=== PATIENT | male | born 1930 | race Hispanic/Latino ===

== ENCOUNTER 2017-09-28 20:22 | Emergency (ER) | payer MEDICARE, BC ==
[2017-09-28 20:22] VITALS: BMI 19.0
[2017-09-28 20:43] VITALS: BP 168/91; PULSE 59; RESP 16; TEMP 98.3; O2SAT 98
--- NOTE | 2017-09-28 22:49 | ED PDOC ---
Arrival/HPI - General Chief Complaint: Trauma Time Seen by Provider: 09/28/17 22:24 Historian: Patient - History of Present Illness Narrative History of Present Illness (Text): 09/28/17 22:49 87 year old male, whose past medical history includes CVA and left upper extremity weakness, DVT, CHF, hypothyroidism, and hypercholestremia, presents to the emergency department complaining of mild headache s/p fall earlier today. Patient was sitting on his easy chair and got up to go to the bathroom when he developed weakness upon standing and fell to the ground. Patient struck his head, but denies any loss of consciousness. Patient currently is complaining of mild headache, but denies any fever, chills, chest pain, shortness of breath, nausea, vomiting, diarrhea, urinary symptoms, back pain, neck pain, dizziness, or any other complaints. PMD: Dr. Tineo Sx: S/P appendectomy, history of umbilical surgery PMHx: history of bilateral healthcare-associated pneumonia Symptom Onset: Sudden Symptom Course: Unchanged Activities at Onset: Light Context: Home Past Medical History - Provider Review Nursing Documentation Reviewed: Yes - Infectious Disease Hx of Infectious Diseases: None - Tetanus Immunization Tetanus Immunization: Unknown - Cardiac Hx Cardiac Disorders: Yes Hx Cardiac Arrhythmia: Yes Hx Circulatory Problems: Yes Hx Congestive Heart Failure: Yes Hx Hypertension: Yes Hx Peripheral Vascular Disease: Yes (DVT) - Pulmonary Hx Respiratory Disorders: Yes Hx Pneumonia: Yes - Neurological Hx Neurological Disorder: Yes HX Cerebrovascular Accident: Yes - HEENT Hx HEENT Disorder: No - Renal Hx Renal Disorder: No - Endocrine/Metabolic Hx Endocrine Disorders: Yes Hx Hypothyroidism: Yes - Hematological/Oncological Hx Blood Disorders: Yes Other/Comment: dvt - Integumentary Hx Dermatological Disorder: No - Musculoskeletal/Rheumatological Hx Musculoskeletal Disorders: Yes Hx Degenerative Joint Disease: Yes Hx Falls: Yes - Gastrointestinal Hx Gastrointestinal Disorders: No - Genitourinary/Gynecological Hx Genitourinary Disorders: Yes Hx Prostate Problems: Yes - Psychiatric Hx Psychophysiologic Disorder: No Hx Substance Use: No - Surgical History Hx Appendectomy: Yes Other/Comment: tonsillectomy - Anesthesia Hx Anesthesia: Yes Hx Anesthesia Reactions: No Hx Malignant Hyperthermia: No Family/Social History - Physician Review Nursing Documentation Reviewed: Yes Family/Social History: No Known Family HX Smoking Status: Never Smoked Hx Alcohol Use: No Hx Substance Use: No Allergies/Home Meds Allergies/Adverse Reactions: Allergies No Known Allergies Allergy (Verified 09/28/17 20:34) Review of Systems - Physician Review All systems were reviewed & negative as marked: Yes - Review of Systems Constitutional: absent: Fevers, Other (Chills) Respiratory: absent: SOB Cardiovascular: absent: Chest Pain Gastrointestinal: absent: Diarrhea, Nausea, Vomiting Genitourinary Male: absent: Dysuria, Frequency, Hematuria Musculoskeletal: absent: Back Pain, Neck Pain Neurological: Headache. absent: Dizziness Physical Exam Vital Signs Reviewed: Yes Vital Signs Temp Pulse Resp BP Pulse Ox 09/28/17 20:35 98.3 F 59 L 16 168/91 H 98 Temperature: Afebrile Blood Pressure: Hypertensive Pulse: Regular Respiratory Rate: Normal Appearance: Positive for: Well-Appearing, Non-Toxic, Comfortable Pain Distress: None Mental Status: Positive for: Alert and Oriented X 3 - Systems Exam Head: Present: Atraumatic, Normocephalic Pupils: Present: PERRL Extroacular Muscles: Present: EOMI Conjunctiva: Present: Normal Mouth: Present: Moist Mucous Membranes Neck: Present: Normal Range of Motion. No: JVD Respiratory/Chest: Present: Clear to Auscultation, Good Air Exchange. No: Respiratory Distress, Accessory Muscle Use, Tender to Palpation (Chest wall nontender to palpation ) Cardiovascular: Present: Regular Rate and Rhythm, Normal S1, S2. No: Murmurs Abdomen: No: Tenderness, Distention, Peritoneal Signs Back: Present: Normal Inspection Upper Extremity: Present: Normal Inspection, Normal ROM, NORMAL PULSES, Neurovascularly Intact. No: Cyanosis, Edema, Deformity Lower Extremity: Present: Normal Inspection, NORMAL PULSES, Normal ROM, Neurovascularly Intact. No: Edema, Deformity Neurological: Present: GCS=15, CN II-XII Intact, Speech Normal, Motor Func Grossly Intact, Normal Sensory Function Skin: Present: Warm, Dry, Normal Color. No: Rashes Psychiatric: Present: Alert, Oriented x 3, Normal Insight, Normal Concentration Medical Decision Making ED Course and Treatment: 09/28/17 22:49 Impression: 87 year old male presents s/p fall after developing weakness upon standing. Patient fell to the ground and struck his head and complaining of mild headache. Denies LOC. Differential Diagnosis included but are not limited to: Minor Head Injury VS Orthostatic Hypertension Plan: -- Head CT w/o Contrast -- Reassess and disposition Progress Notes: EXAM: CT Head Without Intravenous Contrast Dictated and Authenticated by: Nubia Tovar MD 09/29/2017 12:09 AM FINDINGS: Brain: Diffuse cerebral atrophy with prominence of the sulci. Asymmetrical dilatation of the right sylvian fissure and right temporal sulci. Patchy areas of hypoattenuation in the periventricular and subcortical white matter. 1.7 CM oval encephalomalacia in the right singer radiata. Bilateral basal ganglia calcifications. 3.3 CM extra-axial isoattenuating mass near the left sylvian fissure (series 4 image is 14 and 15). No intracranial hemorrhage, cortical infarct, edema, midline shift or extra-axial collection. The brainstem and cerebellum are unremarkable. Ventricles: Asymmetrical dilatation of the right lateral ventricle. No hydrocephalus. Bones/joints: No skull fracture Soft tissues: No scalp hematoma or radiopaque foreign body. Vasculature: The intracranial carotid and vertebral arteries are calcified. Sinuses: Mucosal thickening of the right maxillary sinus. No air-fluid levels. Mastoid air cells: Sclerotic, under aerated inferior mastoid air cells. Compared to the prior study, the cystic encephalomalacia in the right singer radiata is new. The isoattenuating mass near the left sylvian fissure looks larger. IMPRESSION: No intracranial hemorrhage. Age-related atrophy and small vessel disease. Old infarct in the right singer radiata. 3.3 CM extra-axial isoattenuating mass near the left sylvian fissure, increased in size. Probable meningioma. 09/29/17 00:37 On re-evaluation, patient feels better and is in no acute distress. I have discussed the results and plan with the patient, who expresses understanding. Son was made aware that brain has gotten slightly bigger from last MRI in June. Patient in agreement with plan to be discharged home. Patient is stable for discharge. Patient was instructed to follow up with physician or return if symptoms worsen or new concerning symptoms arise. - RAD Interpretation Radiology Orders: 09/28/17 22:24 HEAD W/O CONTRAST [CT] Stat - Scribe Statement The provider has reviewed the documentation as recorded by the Scribe Taylor Zuniga Provider Scribe Attestation: All medical record entries made by the Scribe were at my direction and personally dictated by me. I have reviewed the chart and agree that the record accurately reflects my personal performance of the history, physical exam, medical decision making, and the department course for this patient. I have also personally directed, reviewed, and agree with the discharge instructions and disposition. Disposition/Present on Arrival - Present on Arrival Any Indicators Present on Arrival: No History of DVT/PE: Yes History of Uncontrolled Diabetes: No Urinary Catheter: No History of Decub. Ulcer: No History Surgical Site Infection Following: None - Disposition Have Diagnosis and Disposition been Completed?: Yes Diagnosis: Fall, Head injury, Brain mass Disposition: HOME/ ROUTINE Disposition Time: 06:25 Condition: FAIR Discharge Instructions (ExitCare): Preventing Falls in the Older Adult Print Language: UZBEK Referrals: Jefry Tineo MD [Primary Care Provider] - Follow up with primary Forms: [employer] (Frisian)
--- NOTE | 2017-09-29 10:42 | CT ---
PROCEDURE: CT scan brain dated 09/28/2017 HISTORY: Head trauma on Coumadin COMPARISON: None available. TECHNIQUE: Axial computed tomography images were obtained through the head/brain without intravenous contrast. Radiation dose: Total exam DLP = 1240.94 mGy-cm. This CT exam was performed using one or more of the following dose reduction techniques: Automated exposure control, adjustment of the mA and/or kV according to patient size, and/or use of iterative reconstruction technique. FINDINGS: HEMORRHAGE: No acute parenchymal, subarachnoid or extra-axial hemorrhage. BRAIN: Moderate to significant confluent chronic white matter ischemic changes the seen extending peripherally into the deep and subcortical white matter both cerebral hemispheres. There are chronic appearing bilateral basal nuclei lacunar type infarcts. Re- demonstrated is a large approximately 3.6 x 1.8 cm elliptical shaped isodense extra-axial mass (disease meningioma) in the left inferior frontal region with mild compressive effects on the left and temporal operculum regions as well as left sylvian fissure. The the the VENTRICLES: No obstructive hydrocephalus. CALVARIUM: There are no acute calvarial fractures. PARANASAL SINUSES: Unremarkable as visualized. No significant inflammatory changes. MASTOID AIR CELLS: Unremarkable as visualized. No inflammatory changes. OTHER FINDINGS: Orbits and contents unremarkable IMPRESSION: Moderate to fairly significant chronic periventricular white matter ischemic changes with chronic bilateral basal nuclei infarcts. Re- demonstrated is a relatively large isodense meningioma left inferior frontal regions with the compressive effects on the sylvian fissure as well as the frontal and parietal operculum regions Note preliminary report provided by overnight radiology service
== END 2017-09-29 00:44 | disposition home or self-care (01) ==
LOC: ED 20:22
DX: G93.9 Disorder of brain, unspecified (principal); S09.90XA Unspecified injury of head, initial encounter; W18.30XA Fall on same level, unspecified, initial encounter; Y92.009 Unspecified place in unspecified non-institutional (private) residence as the place of occurrence of the external cause

== ENCOUNTER 2017-10-27 16:13 | Emergency (ER) | payer MEDICARE, BC ==
[2017-10-27 16:13] VITALS: BMI 19.0
[2017-10-27 17:15] LABS: BASO # 0.02 K/mm3 (0.0-2.0); BASO % 0.5 % (0.0-3.0); EOS # 0.2 (0.0-0.7); EOS % 4.3 % (1.5-5.0); GRAN % 51.2 % (50.0-68.0); HEMOGLOBIN 13.4 g/dL (14.0-18.0); LYMPH # 1.3 (1.2-3.4); LYMPH % 33.8 % (22.0-35.0); MEAN CELL VOLUME 92.8 fl (80.0-105.0); MEAN CORPUSCULAR HEMOGLOBIN 32.1 pg (25.0-35.0); MEAN CORPUSCULAR HGB CONC 34.6 g/dl (31.0-37.0); MEAN PLATELET VOLUME 9.7 fl (7.0-11.0); MONO # 0.4 (0.1-0.6); MONO % 10.2 % (1.0-6.0); RBC 4.17 10^6/uL (3.5-6.1); RED CELL DISTRIBUTION WIDTH 13.3 % (11.5-14.5); WHITE BLOOD COUNT 3.9 10^3/ul (4.5-11.0)
[2017-10-27 17:17] LABS: PH,URINE 7.5 (4.7-8.0); URINE BILIRUBIN NEGATIVE (NEGATIVE); URINE BLOOD SMALL (NEGATIVE); URINE GLUCOSE (UA) NEGATIVE (NEGATIVE); URINE LEUKOCYTE ESTERASE NEGATIVE Leu/uL (NEGATIVE); URINE PROTEIN NEGATIVE mg/dL (<30 mg/dL); URINE UROBILINOGEN 0.2 E.U./dL (<1 E.U./dL)
[2017-10-27 17:19] LABS: CALCIUM 8.7 mg/dL (8.4-10.5); GFR AFRICAN-AMERICAN > 60; GFR NON-AFRICAN AMERICAN > 60
[2017-10-27 17:20] LABS: URINE APPEARANCE CLEAR (CLEAR); URINE COLOR YELLOW (YELLOW)
[2017-10-27 17:26] LABS: PARTIAL THROMBOPLASTIN TIME 44.2 Seconds (25.1-36.5)
[2017-10-27 17:31] LABS: ALB/GLOB RATIO 1.1 (1.1-1.8); ALBUMIN 3.8 g/dL (3.0-4.8); ALT/SGPT 26 U/L (7-56); AST/SGOT 56 U/L (17-59); BLOOD UREA NITROGEN 19 mg/dL (7-21); TROPONIN I 0.02 ng/mL
[2017-10-27 17:37] LABS: URINE EPITHELIAL CELLS 0 - 2 /hpf (0-5); URINE WBC 0 - 2 /hpf (0-6)
--- NOTE | 2017-10-27 17:47 | ED PDOC ---
Arrival/HPI - General Chief Complaint: Trauma Time Seen by Provider: 10/27/17 16:14 Historian: Patient - History of Present Illness Narrative History of Present Illness (Text): 10/27/17 17:40 87yo male with PMhx of hypertension, hypothyroid, CVA, PAD, DVT who present with complaint of b/l LE cramps and weakness. He notes that these symptoms has been ongoing for years now, after his CVA. He came to ED today because is becoming more difficult for him to get around secondary to the symptoms. He denies headache, slurred speech, calf pain, chest pain, SOB, diaphoresis, abdominal pain, dizziness, any other complaint. Past Medical History - Provider Review Nursing Documentation Reviewed: Yes - Infectious Disease Hx of Infectious Diseases: None - Tetanus Immunization Tetanus Immunization: Unknown - Cardiac Hx Cardiac Disorders: Yes Hx Cardiac Arrhythmia: Yes Hx Circulatory Problems: Yes Hx Congestive Heart Failure: Yes Hx Hypertension: Yes Hx Peripheral Vascular Disease: Yes (DVT) - Pulmonary Hx Respiratory Disorders: Yes Hx Pneumonia: Yes - Neurological Hx Neurological Disorder: Yes HX Cerebrovascular Accident: Yes (with residual L sided weakness) - HEENT Hx HEENT Disorder: No - Renal Hx Renal Disorder: No - Endocrine/Metabolic Hx Endocrine Disorders: Yes Hx Hypothyroidism: Yes - Hematological/Oncological Hx Blood Disorders: Yes Other/Comment: dvt - Integumentary Hx Dermatological Disorder: No - Musculoskeletal/Rheumatological Hx Musculoskeletal Disorders: Yes Hx Degenerative Joint Disease: Yes Hx Falls: Yes - Gastrointestinal Hx Gastrointestinal Disorders: No - Genitourinary/Gynecological Hx Genitourinary Disorders: Yes Hx Prostate Problems: Yes - Psychiatric Hx Psychophysiologic Disorder: No Hx Substance Use: No - Surgical History Hx Appendectomy: Yes Other/Comment: tonsillectomy - Anesthesia Hx Anesthesia: Yes Hx Anesthesia Reactions: No Hx Malignant Hyperthermia: No Family/Social History - Physician Review Nursing Documentation Reviewed: Yes Family/Social History: Unknown Family HX Smoking Status: Never Smoked Hx Alcohol Use: No Hx Substance Use: No Allergies/Home Meds Allergies/Adverse Reactions: Allergies No Known Allergies Allergy (Verified 09/28/17 20:34) Review of Systems - Physician Review All systems were reviewed & negative as marked: Yes - Review of Systems Constitutional: Normal Eyes: Normal ENT: Normal Respiratory: Normal Cardiovascular: Normal Gastrointestinal: Normal Genitourinary Male: Normal Musculoskeletal: Arthralgias (B/L leg) Skin: Normal Neurological: Normal Endocrine: Normal Hemo/Lymphatic: Normal Psychiatric: Normal Physical Exam Vital Signs Reviewed: Yes Vital Signs Temp Pulse Resp BP Pulse Ox 10/27/17 20:24 98.0 F 72 18 152/78 H 100 10/27/17 16:18 97.8 F 55 L 20 168/91 H 96 Temperature: Afebrile Blood Pressure: Normal Pulse: Regular Respiratory Rate: Normal Appearance: Positive for: Well-Appearing, Non-Toxic, Comfortable Pain Distress: None Mental Status: Positive for: Alert and Oriented X 3 - Systems Exam Head: Present: Atraumatic, Normocephalic Pupils: Present: PERRL Extroacular Muscles: Present: EOMI Conjunctiva: Present: Normal Mouth: Present: Moist Mucous Membranes Neck: Present: Normal Range of Motion Respiratory/Chest: Present: Clear to Auscultation, Good Air Exchange. No: Respiratory Distress, Accessory Muscle Use Cardiovascular: Present: Regular Rate and Rhythm, Normal S1, S2. No: Murmurs Abdomen: No: Tenderness, Distention, Peritoneal Signs Back: Present: Normal Inspection Upper Extremity: Present: Normal Inspection, Normal ROM, NORMAL PULSES ( Decreased), Neurovascularly Intact. No: Cyanosis, Edema, Tenderness, Swelling, Erythema, Temperature Abnormalties Lower Extremity: Present: Normal Inspection. No: Edema Neurological: Present: GCS=15, CN II-XII Intact, Speech Normal Skin: Present: Warm, Dry, Normal Color. No: Rashes Psychiatric: Present: Alert, Oriented x 3, Normal Insight, Normal Concentration Medical Decision Making ED Course and Treatment: 10/27/17 23:06 Pt in ED for stated history. He was hemodynamically stable. He have no focal neurological deficit. His lab was reviewed and mild leuokopenia is noted, which is comparable to his previous labs. Doppler US was negative b/l and his INR was therapeutic. Result was DW the pt. Case was DW Dr. prasad and he recommends that pt be DC home for outpt f/u. Pt states he has a aide that comes to his house daily and states he have exercise regimen that he does daily to strengthen his legs. He was stable for DC. Referred to his PMD. - Lab Interpretations Lab Results: 10/27/17 16:40 10/27/17 16:40 Lab Results 10/27/17 16:55: Urine Color Yellow, Urine Appearance Clear, Urine pH 7.5, Ur Specific [place] 1.020, Urine Protein Negative, Urine Glucose (UA) Negative, Urine Ketones Negative, Urine Blood Small H, Urine Nitrate Negative, Urine Bilirubin Negative, Urine Urobilinogen 0.2, Ur Leukocyte Esterase Negative, Urine RBC 1 - 3, Urine WBC 0 - 2, Ur Epithelial Cells 0 - 2 10/27/17 16:40: PT 35.0 H, INR 3.00 H, APTT 44.2 H 10/27/17 16:40: Sodium 141, Potassium 4.2, Chloride 106, Carbon Dioxide 26, Anion Gap 14, BUN 19, Creatinine 0.7 L, Est GFR ( Amer) > 60, Est GFR ( Non-Af Amer) > 60, Random Glucose 95, Calcium 8.7, Total Bilirubin 0.9, AST 56, ALT 26, Alkaline Phosphatase 65, Lactate Dehydrogenase 692, Total Creatine Kinase 112, Troponin I 0.02 D, Total Protein 7.2, Albumin 3.8, Globulin 3.4, Albumin/Globulin Ratio 1.1 10/27/17 16:40: WBC 3.9 L D, RBC 4.17, Hgb 13.4 L, Hct 38.7 L, MCV 92.8, MCH 32.1, MCHC 34.6, RDW 13.3, Plt Count 146, MPV 9.7, Gran % 51.2, Lymph % (Auto) 33.8, Jack % (Auto) 10.2 H, Eos % (Auto) 4.3, Baso % (Auto) 0.5, Gran # 2.00, Lymph # (Auto) 1.3, Jack # (Auto) 0.4, Eos # (Auto) 0.2, Baso # (Auto) 0.02 - RAD Interpretation Radiology Orders: 10/27/17 16:32 DUPLEX LOWER EXTRM VEIN BILAT [US] Stat Disposition/Present on Arrival - Present on Arrival Any Indicators Present on Arrival: No History of DVT/PE: Yes History of Uncontrolled Diabetes: No Urinary Catheter: No History of Decub. Ulcer: No History Surgical Site Infection Following: None - Disposition Have Diagnosis and Disposition been Completed?: Yes Diagnosis: Leg pain Disposition: HOME/ ROUTINE Disposition Time: 18:35 Patient Plan: Discharge Condition: STABLE Discharge Instructions (ExitCare): Muscle and Bone Pain (DC) Additional Instructions: Follow up with your Doctor Return to ED for any new or worsening symptoms Referrals: Jefry Tineo MD [Primary Care Provider] - Follow up with primary Forms: [employer] (Bengali)
[2017-10-27 20:25] VITALS: BP 152/78; PULSE 72; RESP 18; TEMP 98; O2SAT 100
--- NOTE | 2017-10-28 19:16 | US ---
HISTORY: Leg pain and swelling. Evaluate for DVT PHYSICIAN(S): Jac Ramos MD. TECHNIQUE: Duplex sonography and color-flow Doppler with graded compression were used to evaluate the deep venous systems of both lower extremities. FINDINGS: The visualized deep venous systems of both lower extremities are sonographically normal and compressible. Normal wave forms and augmentation are seen. There is no sonographic evidence for deep venous thrombosis in the visualized segments of both lower extremities. IMPRESSION: No sonographic evidence for deep venous thrombosis in the visualized segments of both lower extremities.
== END 2017-10-27 20:25 | disposition home or self-care (01) ==
LOC: ED 16:13
DX: M79.605 Pain in left leg (principal); M79.604 Pain in right leg; I11.0 Hypertensive heart disease with heart failure; I50.9 Heart failure, unspecified; I69.954 Hemiplegia and hemiparesis following unspecified cerebrovascular disease affecting left non-dominant side; Z86.718 Personal history of other venous thrombosis and embolism

== ENCOUNTER 2017-11-17 10:57 | Inpatient (IN) | payer MEDICARE, BC ==
--- NOTE | 2017-11-17 11:44 | ED PDOC ---
Addendum entered and electronically signed by Jay Jackson DO 11/17/17 16:24 : Addendum Addendum: 11/17/17 16:23 Patient has poor support at home with ambulatory dysfunction 2/2 right knee pain. Patient is unsafe discharge and will be admitted. Discussed with patient and he agrees to admission. Original Note: Arrival/HPI - General Historian: Patient - History of Present Illness Time/Duration: < week Symptom Onset: Gradual Symptom Course: Unchanged - General Chief Complaint: Weakness/Neurological Deficit Time Seen by Provider: 11/17/17 10:59 - History of Present Illness Narrative History of Present Illness (Text): 11/17/17 11:40 Pt is an 87 yo M with PMH of DVT with IVC filter, a. fib on warfarin, hyperlipidemia, CVA, meningioma, and hypothyroidism presents to Emergency department due to 4 day history of generalized weakness. Patient is a poor historian, but states that he lives alone with a home care associate that comes twice a week. He normally is able ambulate around his home without difficulty, but recently has not been able to walk. Patient states that his right knee gave out , but denies any fall. Patient also complains of some urinary frequency, which has been ongoing. Patient also reports left sided residual weakness from CVA. Patient denies chest pain, shortness of breath, nausea, vomiting, diarrhea, abdominal pain, fever, chills, headache, or dizziness. PMD: [place] (Jay Jackson) Past Medical History - Infectious Disease Hx of Infectious Diseases: None - Tetanus Immunization Tetanus Immunization: Unknown - Cardiac Hx Cardiac Disorders: Yes Hx Cardiac Arrhythmia: Yes Hx Circulatory Problems: Yes Hx Congestive Heart Failure: Yes Hx Hypertension: Yes Hx Peripheral Vascular Disease: Yes (DVT) - Pulmonary Hx Respiratory Disorders: Yes Hx Pneumonia: Yes - Neurological Hx Neurological Disorder: Yes HX Cerebrovascular Accident: Yes (with residual L sided weakness) - HEENT Hx HEENT Disorder: No - Renal Hx Renal Disorder: No - Endocrine/Metabolic Hx Endocrine Disorders: Yes Hx Hypothyroidism: Yes - Hematological/Oncological Hx Blood Disorders: Yes Other/Comment: dvt - Integumentary Hx Dermatological Disorder: No - Musculoskeletal/Rheumatological Hx Musculoskeletal Disorders: Yes Hx Degenerative Joint Disease: Yes Hx Falls: Yes - Gastrointestinal Hx Gastrointestinal Disorders: No - Genitourinary/Gynecological Hx Genitourinary Disorders: Yes Hx Prostate Problems: Yes - Psychiatric Hx Psychophysiologic Disorder: No Hx Substance Use: No - Surgical History Hx Appendectomy: Yes Other/Comment: tonsillectomy - Anesthesia Hx Anesthesia: Yes Hx Anesthesia Reactions: No Hx Malignant Hyperthermia: No Family/Social History Family/Social History: No Known Family HX Smoking Status: Never Smoked Hx Alcohol Use: No Hx Substance Use: No Allergies/Home Meds Allergies/Adverse Reactions: Allergies No Known Allergies Allergy (Verified 09/28/17 20:34) Home Medications: Home Meds Medication Instructions Recorded Confirmed Donepezil [Aricept] 5 mg PO DAILY 11/17/17 11/17/17 Lisinopril [Zestril] 5 mg PO DAILY 11/17/17 11/17/17 Warfarin [Coumadin] 5 mg PO DAILY 11/17/17 11/17/17 Review of Systems - Physician Review All systems were reviewed & negative as marked: Yes (12 point ROS reviewed and is negative other than what is stated in HPI.) Physical Exam Vital Signs Reviewed: Yes Temperature: Afebrile Blood Pressure: Normal Pulse: Regular Respiratory Rate: Normal Appearance: Positive for: Non-Toxic Pain Distress: None Mental Status: Positive for: Alert and Oriented X 3 - Systems Exam Head: Present: Atraumatic, Normocephalic Pupils: Present: PERRL Extroacular Muscles: Present: EOMI Conjunctiva: Present: Normal Mouth: Present: Moist Mucous Membranes Neck: Present: Normal Range of Motion Respiratory/Chest: Present: Clear to Auscultation. No: Wheezes, Rales, Rhonchi Cardiovascular: Present: Normal S1, S2, Irregular Rhythm. No: Murmurs, Rub, Gallop Abdomen: No: Tenderness, Distention, Rebound, Guarding Upper Extremity: Present: Normal Inspection. No: Cyanosis, Edema Lower Extremity: Present: NORMAL PULSES, Erythema (left foot). No: Edema Neurological: Present: GCS=15, CN II-XII Intact, Speech Normal, Other (LUE/LLE strength 3/5, RUE/RLE strength 4/5) Skin: Present: Warm, Dry, Normal Color. No: Rashes Psychiatric: Present: Alert, Oriented x 3, Normal Insight, Normal Concentration Vital Signs Temp Pulse Resp BP Pulse Ox 11/17/17 16:58 85 123/52 L 11/17/17 16:00 98 F 75 19 129/72 99 11/17/17 14:28 54 L 16 133/99 H 98 Medical Decision Making ED Course and Treatment: 11/17/17 11:53 87 yo M presents to Emergency department with generalized weakness for past 4 days. Plan: - CBC, CMP - Coags - Cardiac ISO - Chest X-ray - Urinalysis - EKG - CT head - Reassess and Disposition EKG reviewed, shows atrial fibrillation and left bundle branch block. Rate 60. Old EKG reviewed from 06/16/17 which also shows NSR and left bundle branch block. 11/17/17 13:27 Chest X-ray showed minimal interstitial infiltrates seen at both lung bases. Knee X-ray showed severe join space narrowing on the lateral aspect of the patellofemoral joint. 11/17/17 15:[address] showed no acute cranial findings. 11/17/17 16:[address] Edward, who is covering for Dr. Valdez, who covers for Dr. Tineo. She agrees with plan and accepts patient to her service. Patient will be admitted to med/surg. (Jay Jackson) 11/17/17 17:00 patient was seen for ambultory due to severe right knee pain. patient found to have severe OA in the right knee. patient has a hx of cva with left sided neuro deficits. patient has been essentially bed bound for the past two days. patient was admitted for ambulatory dysfunction, fall risk at home, patient cannot ambulate safely at home, patient admitted for PT and goal to rehab (Jose E Jasso) - Lab Interpretations Lab Results: 11/17/17 11:49 11/17/17 11:49 Lab Results 11/17/17 15:42: Urine Color Light yellow, Urine Appearance Clear, Urine pH 6.0, Ur Specific [place] 1.020, Urine Protein Negative, Urine Glucose (UA) Negative, Urine Ketones Negative, Urine Blood Moderate H, Urine Nitrate Negative, Urine Bilirubin Negative, Urine Urobilinogen 0.2, Ur Leukocyte Esterase Trace H, Urine RBC 1 - 3, Urine WBC Negative, Ur Epithelial Cells None, Urine Bacteria None 11/17/17 11:49: PT 37.1 H, INR 3.15 H, APTT 66.8 H 11/17/17 11:49: WBC 4.8 D, RBC 4.39, Hgb 14.1, Hct 41.1 L, MCV 93.6, MCH 32.1, MCHC 34.3, RDW 13.7, Plt Count 155, MPV 9.3, Gran % 64.2, Lymph % (Auto) 27.1, [place] % (Auto) 5.4, Eos % (Auto) 2.7, Baso % (Auto) 0.6, Gran # 3.08, Lymph # ( Auto) 1.3, [place] # (Auto) 0.3, Eos # (Auto) 0.1, Baso # (Auto) 0.03 11/17/17 11:49: Sodium 144, Potassium 4.6, Chloride 103, Carbon Dioxide 31, Anion Gap 15, BUN 23 H, Creatinine 0.8, Est GFR ( Amer) > 60, Est GFR ( Non-Af Amer) > 60, Random Glucose 117 H, Calcium 9.0, Phosphorus 3.4, Magnesium 2.3 H, Total Bilirubin 0.7, AST 28, ALT 28, Alkaline Phosphatase 64, Lactate Dehydrogenase 390, Total Creatine Kinase 46, Troponin I 0.02, Total Protein 7.0 , Albumin 3.7, Globulin 3.3, Albumin/Globulin Ratio 1.1 11/17/17 11:21: POC Glucose (mg/dL) 132 H - RAD Interpretation Radiology Orders: 11/17/17 11:35 HEAD W/O CONTRAST [CT] Stat 11/17/17 11:45 CXR [CHEST TWO VIEWS (PA/LAT)] [RAD] Stat 11/17/17 12:09 KNEE W PATELLA RIGHT 3 VIEW [RAD] Stat 11/17/17 16:15 CHEST W/O CONTRAST [CT] Stat - Medication Orders Current Medication Orders: Acetaminophen (Tylenol 325mg Tab) 650 mg PO Q6H PRN PRN Reason: Fever >100.4 F Donepezil HCl (Aricept) 5 mg PO DAILY [facility] Last Admin: 11/17/17 16:58 Dose: 5 mg Lisinopril (Zestril) 5 mg PO DAILY [facility] Last Admin: 11/17/17 16:58 Dose: 5 mg MAR Pulse and Blood Pressure Document 11/17/17 16:58 GMI (Rec: 11/17/17 16:59 GMI [id number]) Pulse Pulse Rate (60-90) 85 Blood Pressure Blood Pressure (100/60-150/90) 123/52 Warfarin Sodium (Coumadin) 1 mg PO 1800 GUSTABO Discontinued Medications Warfarin Sodium (Coumadin) 5 mg PO 1800 GUSTABO Disposition/Present on Arrival - Present on Arrival Any Indicators Present on Arrival: No History of DVT/PE: Yes History of Uncontrolled Diabetes: No Urinary Catheter: No History of Decub. Ulcer: No History Surgical Site Infection Following: None - Disposition Have Diagnosis and Disposition been Completed?: Yes Disposition Time: 16:13 Patient Plan: Admission - Disposition Diagnosis: Generalized weakness Disposition: HOSPITALIZED Condition: STABLE
[2017-11-17 12:02] LABS: BASO # 0.03 K/mm3 (0.0-2.0); BASO % 0.6 % (0.0-3.0); EOS # 0.1 (0.0-0.7); EOS % 2.7 % (1.5-5.0); GRAN # 3.08 (1.4-6.5); GRAN % 64.2 % (50.0-68.0); HEMOGLOBIN 14.1 g/dL (14.0-18.0); LYMPH # 1.3 (1.2-3.4); LYMPH % 27.1 % (22.0-35.0); MEAN CELL VOLUME 93.6 fl (80.0-105.0); MEAN CORPUSCULAR HEMOGLOBIN 32.1 pg (25.0-35.0); MEAN CORPUSCULAR HGB CONC 34.3 g/dl (31.0-37.0); MEAN PLATELET VOLUME 9.3 fl (7.0-11.0); MONO # 0.3 (0.1-0.6); MONO % 5.4 % (1.0-6.0); RBC 4.39 10^6/uL (3.5-6.1); RED CELL DISTRIBUTION WIDTH 13.7 % (11.5-14.5); WHITE BLOOD COUNT 4.8 10^3/ul (4.5-11.0)
[2017-11-17 12:11] LABS: ALB/GLOB RATIO 1.1 (1.1-1.8); ALBUMIN 3.7 g/dL (3.0-4.8); ALT/SGPT 28 U/L (7-56); AST/SGOT 28 U/L (17-59); BLOOD UREA NITROGEN 23 mg/dL (7-21); GFR AFRICAN-AMERICAN > 60; GFR NON-AFRICAN AMERICAN > 60
[2017-11-17 12:13] LABS: PROTHROMBIN TIME 37.1 SECONDS (9.4-12.5)
[2017-11-17 12:14] LABS: INR 3.15 (0.93-1.08); PARTIAL THROMBOPLASTIN TIME 66.8 Seconds (25.1-36.5); TROPONIN I 0.02 ng/mL
--- NOTE | 2017-11-17 13:14 | RAD ---
HISTORY: weakness COMPARISON: 08/17/2017 TECHNIQUE: Chest PA and lateral FINDINGS: LUNGS: Minimal interstitial infiltrates are seen at both lung bases PLEURA: No significant pleural effusion identified. No pneumothorax apparent. CARDIOVASCULAR: Normal. OSSEOUS STRUCTURES: No significant abnormalities. VISUALIZED UPPER ABDOMEN: Normal. OTHER FINDINGS: None. IMPRESSION: Minimal interstitial infiltrates are seen at both lung bases
--- NOTE | 2017-11-17 13:15 | RAD ---
PROCEDURE: Right Knee Radiographs. HISTORY: pain COMPARISON: None. FINDINGS: BONES: Normal. No fracture. JOINTS: There is severe joint space narrowing on the lateral aspect of the patellofemoral joint. JOINT EFFUSION: None. OTHER FINDINGS: None. IMPRESSION: There is severe joint space narrowing on the lateral aspect of the patellofemoral joint.
--- NOTE | 2017-11-17 13:31 | CT ---
PROCEDURE: CT HEAD WITHOUT CONTRAST. HISTORY: weakness COMPARISON: 09/28/2017 TECHNIQUE: Axial computed tomography images were obtained through the head/brain without intravenous contrast. Radiation dose: Total exam DLP = 961 mGy-cm. This CT exam was performed using one or more of the following dose reduction techniques: Automated exposure control, adjustment of the mA and/or kV according to patient size, and/or use of iterative reconstruction technique. FINDINGS: HEMORRHAGE: No intracranial hemorrhage. BRAIN: No mass effect or edema. There is an old white matter infarct on the right measuring 8 9 x 19 mm. Chronic microvascular changes are seen. There are no acute intracranial findings. VENTRICLES: Unremarkable. No hydrocephalus. CALVARIUM: Unremarkable. PARANASAL SINUSES: Unremarkable as visualized. No significant inflammatory changes. MASTOID AIR CELLS: Unremarkable as visualized. No inflammatory changes. OTHER FINDINGS: None. IMPRESSION: No acute intracranial findings
[2017-11-17 16:12] LABS: URINE BILIRUBIN NEGATIVE (NEGATIVE); URINE BLOOD MODERATE (NEGATIVE); URINE GLUCOSE (UA) NEGATIVE (NEGATIVE); URINE LEUKOCYTE ESTERASE TRACE Leu/uL (NEGATIVE); URINE PROTEIN NEGATIVE mg/dL (<30 mg/dL); URINE UROBILINOGEN 0.2 E.U./dL (<1 E.U./dL)
[2017-11-17 16:13] LABS: URINE APPEARANCE CLEAR (CLEAR); URINE COLOR LIGHT YELLOW (YELLOW)
[2017-11-17 16:24] LABS: URINE WBC NEGATIVE /hpf (0-6)
--- NOTE | 2017-11-17 17:30 | CT ---
PROCEDURE: CT Chest without contrast HISTORY: ??basal infiltrats COMPARISON: 08/22/2017 TECHNIQUE: Contiguous axial images were obtained through the chest without intravenous contrast enhancement. Sagittal and coronal reconstructions were performed. Radiation dose (DLP): 369 mGy-cm. This CT exam was performed using one or more of the following dose reduction techniques: Automated exposure control, adjustment of the mA and/or kV according to patient size, and/or use of iterative reconstruction technique. FINDINGS: LUNGS: Chronic interstitial infiltrates are again demonstrated at both lung bases posteriorly. The upper lung ramos are clear findings are unchanged MEDIASTINUM: Unremarkable thoracic aorta. No aneurysm. Normal sized heart. Main pulmonary artery unremarkable. No vascular congestion. No lymphadenopathy. PLEURA: No pleural fluid. No pneumothorax. BONES: No fracture. No destructive lesion. UPPER ABDOMEN: Grossly unremarkable. OTHER FINDINGS: None. IMPRESSION: Chronic interstitial infiltrates are again demonstrated at both lung bases posteriorly. The upper lung ramos are clear
[2017-11-17] MEDS ORDERED: Pneumococcal 23-Valent Vaccine IM ONE (21:30)
[2017-11-17 23:12] VITALS: BMI 20.9
[2017-11-18 07:24] LABS: PROTHROMBIN TIME 45.9 SECONDS (9.4-12.5)
[2017-11-18 07:25] LABS: INR 3.88 (0.93-1.08)
--- NOTE | 2017-11-18 10:29 | CARD ---
APPROVED REPORT EKG Measurement Heart [id number] <Conclusion> Sinus bradycardia PVC LBBB
--- NOTE | 2017-11-19 01:02 | HP ---
HISTORY OF PRESENT ILLNESS: The patient is 87 years old, patient of Dr. Tineo. Was brought to Emergency Room because of increasing weakness, increasing bilateral leg pain. He states his right knee and he gets home health aide three times a week. He does not have good support system, so he was brought to emergency room for further evaluation. PAST MEDICAL HISTORY: Significant for, 1. Mild dementia. 2. Hypertension. 3. Hyperlipidemia. 4. Chronic AFib. ALLERGIES: HE IS NOT ALLERGIC TO ANY MEDICATIONS. MEDICATIONS AT HOME: He is on Aricept 5 mg daily, lisinopril 5 mg daily, Coumadin 5 mg daily. SOCIAL HISTORY: He used to be a heavy smoker in the past, not anymore. PHYSICAL EXAMINATION: GENERAL: He is awake and alert, but confused, disoriented. VITAL SIGNS: He is afebrile, pulse 52, respirations 20, blood pressure 132/86. LUNGS: Bilateral fair airflow. No rhonchi or crackle. HEART: S1 and S2 audible. ABDOMEN: Soft. Nontender. No rebound. No guarding. NEUROLOGICAL: He is awake and alert, but somewhat confused, forgetful. EXTREMITIES: Bilateral knee, he has osteoarthritic deformity; however, he has a good range of motion. Has difficulty walking. LABORATORY EXAM: WBC is 4.8, hemoglobin 14, hematocrit 41, platelet 151. PT is 3.88. Chemistry: Sodium 144, potassium 4.6, chloride 103, CO2 of 31, BUN 23, creatinine 0.8, blood sugar of 117. Urine shows moderate blood and trace leukocyte. CT scan of the chest was done that shows chronic interstitial infiltrate in both lungs. Upper lung ramos are clear on x-ray chest. There is severe joint space narrowing of the lateral aspect of the patellofemoral joint. ASSESSMENT: 1. Deconditioning, difficulty walking. 2. Bilateral interstitial infiltrate. 3. Severe knee osteoarthritis. 4. Dementia. 5. Hypertension. 6. History of atrial fibrillation. 7. Sinus bradycardia with premature ventricular contractions and left bundle-branch block. PLAN: We will hold Coumadin for today. Continue Aricept, lisinopril. I will request Dr. De Leon to evaluate his knee arthritis. Might need intraarticular injection. Physical Therapy evaluation has been requested. We will follow up PT/INR in the a.m. to determine if he would need to restart Coumadin. Patient is hemodynamically stable. Discontinue telemetry. Kyleigh Edward MD
[2017-11-19 07:14] LABS: INR 3.33 (0.93-1.08); PROTHROMBIN TIME 39.2 SECONDS (9.4-12.5)
[2017-11-19] MEDS ORDERED: MethylPREDNISolone Depo 40 mg/ml Inj IM ONE (08:16)
[2017-11-19] MEDS ORDERED: Bupivacaine 0.5% Inj(30mL) IJ ONE (08:16)
--- NOTE | 2017-11-19 08:41 | HP ---
HISTORY OF PRESENT ILLNESS: The patient is 87-year-old male who has not been feeling well, complaining of feeling leg weakness and his knee gave out and he fell couple of days ago. He only has home health aide who visit 2 or 3 times a week, who was brought to emergency room for further evaluation. Denies any fever or chills. No history of nausea or vomiting, has been feeling average up until few days ago. Complaining feeling very weak, fatigued, tired and unstable. PAST MEDICAL HISTORY: 1. Significant for AFib, on anticoagulant. 2. Hypothyroidism. 3. Hyperlipidemia. 4. History of CVA in the past. 5. History of hemangioma of left frontal lobe. 6. History of left DVT, status post inferior vena cava filter placement. SOCIAL HISTORY: He lives by himself, has home health aide who visit 2 to 3 times a week. He used to be a heavy smoker in the remote past. ALLERGIES: HE IS NOT ALLERGIC TO ANY MEDICATION. PAST SURGICAL HISTORY: Significant for appendectomy and tonsillectomy. MEDICATIONS AT HOME: He is on donepezil 5 mg daily, Zestril 5 mg daily, Coumadin 5 mg daily, REVIEW OF SYSTEMS: Significant for generalized weakness and difficulty walking. PHYSICAL EXAMINATION GENERAL: He is awake, alert, oriented, not very good historian. VITAL SIGNS: Afebrile, pulse 64, respirations 18, blood pressure 133/99. LUNGS: Bilateral fair air flow. No rhonchi or crackle. HEART: S1 and S2 audible. ABDOMEN: Soft. Nontender. No rebound. No guarding. NEUROLOGICAL: He is awake and alert, communicative. EXTREMITIES: On lower extremity, he has difficulty walking. LABORATORY DATA: WBC is 4.8, hemoglobin 14, hematocrit 41, platelets 155. PT 37.1, INR 3.15. Chemistry, sodium 144, potassium 4.6, chloride 103, CO2 of 31, BUN 23, creatinine 0.8, blood sugar of 117, magnesium 2.3. Knee x-ray was done that showed joint space narrowing on lateral aspect of the patellofemoral joint and x-ray of chest is unremarkable. Minimal interstitial infiltrates in both lung bases, atelectasis. CT scan of the head, no acute intracranial findings. ASSESSMENT AND PLAN: 1. Generalized weakness, difficulty walking and deconditioning. 2. Questionable basilar infiltrate. 3. History of hypertension. 4. Dementia. 5. Severe bilateral osteoarthritis. PLAN: The patient will be placed in observation. Request for physical therapy evaluation, monitor overnight. I will order for CT scan of the chest. Followup urinalysis. I will give Coumadin 1 mg today and to resume his usual medications and order for CT scan of the chest to rule out if the patient has infiltrate if he needs antibiotics. Physical therapy evaluation has been requested. We will reevaluate the patient in a.m. Kyleigh Edward MD
--- NOTE | 2017-11-19 10:44 | PN ---
DATE: 11/19/2017 SUBJECTIVE: The patient has no complaints of any chest pain or shortness of breath. He states he is more awake and alert. He says his breathing is better. PHYSICAL EXAMINATION: VITAL SIGNS: Temperature is 97.6, pulse of 54, blood pressure 148/81, respirations 18. GENERAL: The patient is lying in bed, flat, comfortable. HEENT: No oral lesion. Anicteric sclerae. Moist mucosa. NECK: No JVD, adenopathy, or thyromegaly. CARDIOVASCULAR: S1 and S2, regular. No murmurs, rubs, or gallops. LUNGS: Clear to auscultation bilaterally. No wheeze, rales, or rhonchi. ABDOMEN: Bowel sounds are positive, soft, nontender and nondistended. EXTREMITIES: No cyanosis, clubbing or edema. LABORATORY DATA: CT of the chest done shows chronic interstitial infiltrates. X-ray of the right knee shows severe joint space narrowing. ASSESSMENT: 1. Dementia, mild Alzheimer's type. 2. Hypertension. 3. Dyslipidemia. 4. Coagulopathy. 5. Right knee degenerative joint disease. 6. History of alcoholism. 7. Atrial fibrillation, on anticoagulation. Coumadin on hold. PLAN: The patient is on lisinopril. He is on a heart-healthy diet. The patient will need physical therapy. Dr. De Leon is following the patient. Andrey Valdez MD
--- NOTE | 2017-11-19 12:34 | RAD ---
PROCEDURE: Left Knee Radiographs. HISTORY: Pain. COMPARISON: None. FINDINGS: BONES: Normal. No fracture. JOINTS: Normal. No osteoarthritis. JOINT EFFUSION: None. OTHER FINDINGS: None. IMPRESSION: Normal radiographs of the left knee.
--- NOTE | 2017-11-19 20:05 | CON ---
DATE: 11/19/2017 ORTHOPEDIC CONSULT HISTORY OF PRESENT ILLNESS: An 87-year-old male. The patient was seen, requested by Dr. Valdez for inability to ambulate well because of right knee pain. He has x-ray evidence of significant osteoarthritis of his right knee with decreased joint space . Exam shows no effusion, but he is tender at the medial joint line and I told him he has a good chance of walking better with more security if he could get a Depo-Medrol injection in the right knee, which I did with Marcaine to help his inflammation and this will decrease his pain, so he could participate in physical therapy better and I told him he should walk with a walker because of his history of falling more often, so we could avoid a falling if we get the strength up and the pain down, without the therapy and the injection. FINAL DIAGNOSIS: Osteoarthritis of the right greater than left knee and I will follow him and see him again after the left knee x-ray comes back. Live De Leon DO [place]
[2017-11-20 06:57] LABS: PROTHROMBIN TIME 32.7 SECONDS (9.4-12.5)
[2017-11-20 06:58] LABS: INR 2.78 (0.93-1.08)
--- NOTE | 2017-11-20 10:11 | PN ---
DATE: 11/20/2017 SUBJECTIVE: The patient has no complaints of any chest pain, no shortness of breath, no headaches or dizziness. PHYSICAL EXAMINATION VITAL SIGNS: Temperature is 96, pulse of 62, blood pressure is 152/91, respirations 20. GENERAL: The patient is lying in bed, flat, comfortable. HEENT: No oral lesion. Anicteric sclerae. Moist mucosa. NECK: No JVD, adenopathy, or thyromegaly. CARDIOVASCULAR: S1 and S2, regular. No murmurs, rubs, or gallops. LUNGS: Clear to auscultation bilaterally. No wheeze, rales, or rhonchi. ABDOMEN: Bowel sounds are positive, soft, nontender and nondistended. EXTREMITIES: No cyanosis, clubbing or edema. LABORATORY DATA: Creatinine is 0.9, sodium is 144, potassium is 4.6. Right knee x-ray shows severe joint space narrowing. ASSESSMENT: 1. Dementia, mild Alzheimer's type. 2. Hypertension. 3. Right knee pain. 4. Gait dysfunction. 5. Dyslipidemia. 6. Coagulopathy. 7. Atrial fibrillation, on anticoagulation. PLAN: The patient's INR is therapeutic at 2.78. We will restart the patient's Coumadin. The patient is also on lisinopril for hypertension. He is on Colace daily. The patient is on a heart-healthy diet. He was seen by Physical Therapy yesterday. The patient is a candidate for subacute rehab. We will see if he qualifies. If he gets accepted, we will discharge him to subacute rehab. Andrey Valdez MD
[2017-11-20 19:01] VITALS: TEMP 97.4
[2017-11-21 08:23] VITALS: BP 158/90; PULSE 74; RESP 20; O2SAT 96
--- NOTE | 2017-11-21 12:13 | DS ---
HISTORY OF PRESENT ILLNESS: The patient is an 87-year-old male who had come in to the hospital because he was having difficulty in walking. The patient is comfortable. He has no complaints of any pain. No headaches or dizziness. PHYSICAL EXAMINATION: VITAL SIGNS: Temperature is 97.4, pulse of 58, blood pressure 160/90, respiration is 18. GENERAL: The patient is lying in bed, flat, comfortable. HEENT: No oral lesion. Anicteric sclerae. Moist mucosa. NECK: No JVD, adenopathy, or thyromegaly. CARDIOVASCULAR: S1 and S2, regular. No murmurs, rubs, or gallops. LUNGS: Clear to auscultation bilaterally. No wheeze, rales, or rhonchi. ABDOMEN: Bowel sounds are positive, soft, nontender and nondistended. EXTREMITIES: No cyanosis, clubbing or edema. LABORATORY DATA: White count of 4.8, hemoglobin 14.1, creatinine 0.8. ASSESSMENT: 1. Dementia of Alzheimer's type, mild. 2. Hypertension. 3. Right knee pain. 4. Gait dysfunction. 5. Dyslipidemia. 6. Coagulopathy. 7. Atrial fibrillation, on anticoagulation. PLAN: The patient's INR is therapeutic at 2.7. He was restarted on his Coumadin. The patient is on Colace for his constipation. The patient is on Lisinopril for his hypertension. He is on Aricept for his dementia. He is going to be discharged to [facility] today. Condition is stable. Activities increase as tolerated. Andrey Valdez MD
== END 2017-11-21 16:05 | DRG 554 ==
LOC: ED 10:57 → ERH 16:22 → 3RSO 17:16 → OBSVTOIN 11-18 23:04
PROVIDERS: ADMIT Internal Medicine; ATTEND Internal Medicine Nephrology
PROC: 3E0U33Z Introduction of Anti-inflammatory into Joints, Percutaneous Approach (ICD-10-PCS; principal; 2017-11-19)
PROC: 3E0U3BZ Introduction of Anesthetic Agent into Joints, Percutaneous Approach (ICD-10-PCS; 2017-11-19)
DX: M17.11 Unilateral primary osteoarthritis, right knee (principal); D68.9 Coagulation defect, unspecified; I69.354 Hemiplegia and hemiparesis following cerebral infarction affecting left non-dominant side; G30.9 Alzheimer's disease, unspecified; F02.80 Dementia in other diseases classified elsewhere, unspecified severity, without behavioral disturbance, psychotic disturbance, mood disturbance, and anxiety; I11.0 Hypertensive heart disease with heart failure; E78.5 Hyperlipidemia, unspecified; I48.2 Chronic atrial fibrillation; I50.9 Heart failure, unspecified; I73.9 Peripheral vascular disease, unspecified; I44.7 Left bundle-branch block, unspecified; E03.9 Hypothyroidism, unspecified; D32.9 Benign neoplasm of meninges, unspecified; Z79.01 Long term (current) use of anticoagulants; Z79.899 Other long term (current) drug therapy; Z86.718 Personal history of other venous thrombosis and embolism; Z87.01 Personal history of pneumonia (recurrent); Z87.891 Personal history of nicotine dependence; Z90.49 Acquired absence of other specified parts of digestive tract; Z91.81 History of falling; F10.21 Alcohol dependence, in remission

== ENCOUNTER 2018-05-15 17:26 | Inpatient (IN) | payer MEDICARE, BC ==
[2018-05-15 17:39] VITALS: BMI 22.4
--- NOTE | 2018-05-15 18:20 | RAD ---
Date of service: 05/15/2018 PROCEDURE: Radiographs of the Chest and Left Ribs. HISTORY: rib pain s/p trauma COMPARISON: None available. TECHNIQUE: Frontal radiograph of the chest and multiple oblique radiographs of the left ribs were obtained. FINDINGS: LEFT RIBS: There is diffuse bone demineralization. There is an acute nondisplaced fracture in the left anterior nine 8 rib. LUNGS: The lungs are well inflated and clear. There is a small calcified granuloma in the left apex. PLEURA: No pneumothorax or pleural fluid. CARDIOVASCULAR: Mild cardiomegaly. No pulmonary vascular congestion. No aortic atherosclerotic calcification present OTHER FINDINGS: Infrarenal filter remains in place. IMPRESSION: Acute nondisplaced fracture in the left anterior 9th rib. No pneumothorax.
--- NOTE | 2018-05-15 18:32 | CT ---
Date of service: 05/15/2018 PROCEDURE: CT HEAD WITHOUT CONTRAST. HISTORY: s/p head injury COMPARISON: 11/17/2017. TECHNIQUE: Axial computed tomography images were obtained through the head/brain without intravenous contrast. Radiation dose: Total exam DLP = 874.69 mGy-cm. This CT exam was performed using one or more of the following dose reduction techniques: Automated exposure control, adjustment of the mA and/or kV according to patient size, and/or use of iterative reconstruction technique. FINDINGS: HEMORRHAGE: No intracranial hemorrhage. BRAIN: There is a large old lacunar infarction in the right singer radiata and posterior basal ganglia. There are mild chronic microangiopathic changes. There is no mass, mass effect or abnormal extra-axial fluid collection. There is no territorial infarction. The midline sagittal structures are normal.There are coarse atherosclerotic calcifications in the cavernous carotid arteries. VENTRICLES: There is mild age-related global parenchymal volume loss and proportionate enlargement of the ventricles and cortical sulci. CALVARIUM: There is no calvarial fracture or extracranial soft tissue swelling. PARANASAL SINUSES: Predominantly clear. MASTOID AIR CELLS: Predominantly clear. OTHER FINDINGS: None. IMPRESSION: No acute intracranial abnormality. No significant interval change.
[2018-05-15] MEDS ORDERED: Oxycodone/Acetaminophen 5/325 mg Tab PO STA (18:38)
--- NOTE | 2018-05-15 19:04 | ED PDOC ---
Arrival/HPI - General Chief Complaint: Rib Injury Historian: Patient - History of Present Illness Narrative History of Present Illness (Text): 05/15/18 19:26 88yo male with pmhx of hypothyroid, hypertension, CVA, PAD, DVT bib EMS for left rib pain s/p fall. Patient states he was trying to go from the chair he was sitting into his wheel chair and fell. States he don't remember what happened. States he just started having pain to his left rib when he became conscious. Pain is intermittent and usually with palpation and deep inspiration. Denies focal weakness, chest pain, recent URI, tinnitus, visual changes, abdominal pain, nausea, vomiting, diarrhea, constipation, urinary symptoms, any other complaint. He is currently on anticoagulant. Past Medical History - Provider Review Nursing Documentation Reviewed: Yes - Infectious Disease Hx of Infectious Diseases: None - Tetanus Immunization Tetanus Immunization: Unknown - Cardiac Hx Cardiac Disorders: Yes (AFib, cardiac arrhythmia) Hx Congestive Heart Failure: Yes Hx Hypertension: Yes - Pulmonary Hx Respiratory Disorders: Yes (USED TO SMOKE IN HIS TEENS./ QUIT) Hx Pneumonia: Yes - Neurological HX Cerebrovascular Accident: Yes (3 years ago) - HEENT Hx HEENT Disorder: No - Renal Hx Renal Disorder: No - Endocrine/Metabolic Hx Hypothyroidism: Yes - Hematological/Oncological Hx Blood Disorders: Yes Other/Comment: dvt - Integumentary Hx Dermatological Disorder: No - Musculoskeletal/Rheumatological Hx Musculoskeletal Disorders: Yes Hx Degenerative Joint Disease: Yes Hx Falls: Yes Hx Unsteady Gait: Yes (CANE) - Gastrointestinal Hx Gastrointestinal Disorders: No - Genitourinary/Gynecological Hx Genitourinary Disorders: Yes Hx Prostate Problems: Yes - Psychiatric Hx Psychophysiologic Disorder: No Hx Substance Use: No - Surgical History Hx Appendectomy: Yes Other/Comment: tonsillectomy - Anesthesia Hx Anesthesia: Yes Hx Anesthesia Reactions: No Hx Malignant Hyperthermia: No Family/Social History - Physician Review Nursing Documentation Reviewed: Yes Family/Social History: Unknown Family HX Smoking Status: Former Smoker Hx Alcohol Use: No Hx Substance Use: No Allergies/Home Meds Allergies/Adverse Reactions: Allergies No Known Allergies Allergy (Verified 11/17/17 21:10) Home Medications: Home Meds Medication Instructions Recorded Confirmed Donepezil [Aricept] 5 mg PO DAILY 11/17/17 11/17/17 Lisinopril [Zestril] 5 mg PO DAILY 11/17/17 11/17/17 Warfarin [Coumadin] 5 mg PO DAILY 11/17/17 11/17/17 Review of Systems - Physician Review All systems were reviewed & negative as marked: Yes - Review of Systems Constitutional: Normal Eyes: Normal ENT: Normal Respiratory: Normal Cardiovascular: Normal Gastrointestinal: Normal Genitourinary Male: Normal Musculoskeletal: Arthralgias (left rib pain) Skin: Normal Neurological: Normal Endocrine: Normal Hemo/Lymphatic: Normal Psychiatric: Normal Physical Exam Vital Signs Reviewed: Yes Vital Signs Temp Pulse Resp BP Pulse Ox 05/15/18 17:39 97.7 F 64 16 157/70 H 99 Temperature: Afebrile Blood Pressure: Normal Pulse: Regular Respiratory Rate: Normal Appearance: Positive for: Well-Appearing, Non-Toxic, Comfortable Pain Distress: None Mental Status: Positive for: Alert and Oriented X 3 - Systems Exam Head: Present: Atraumatic, Normocephalic Pupils: Present: PERRL Extroacular Muscles: Present: EOMI Conjunctiva: Present: Normal Mouth: Present: Moist Mucous Membranes Neck: Present: Normal Range of Motion Respiratory/Chest: Present: Clear to Auscultation, Good Air Exchange, Tender to Palpation (Tenderness over the left anterior and lateral left rib). No: Respiratory Distress, Accessory Muscle Use, Wheezes, Decreased Breath Sounds, Rales, Retracting, Rhonchi, Tachypneic Cardiovascular: Present: Regular Rate and Rhythm, Normal S1, S2. No: Murmurs Abdomen: No: Tenderness, Distention, Peritoneal Signs Back: Present: Normal Inspection Upper Extremity: Present: Normal Inspection. No: Cyanosis, Edema Lower Extremity: Present: Normal Inspection. No: Edema Neurological: Present: GCS=15, CN II-XII Intact, Speech Normal Skin: Present: Warm, Dry, Normal Color. No: Rashes Psychiatric: Present: Alert, Oriented x 3, Normal Insight, Normal Concentration Medical Decision Making ED Course and Treatment: 05/15/18 19:43 88yo male bib EMS for left rib pain s/p syncope. PT was AAO x3 in ED. He had left upper extremity weakness and contraction secondary to his old CVA (3yrs ago). He was otherwise neurologically intact. He had focal left rib tenderness. Head CT Left rib/Chest xray Labs EKG Left rib/chest xray IMPRESSION: Acute nondisplaced fracture in the left anterior 9th rib. No pneumothorax. Head CT IMPRESSION: No acute intracranial abnormality. No significant interval change. EKG Sinus andrés with sinus arrhythmia @ 59bpm. LBBB. N-stemi Pt will be admitted to r/o cardiac or neuro cause of his syncope Case was DW Dr. prasad and he accepted pt for admission - RAD Interpretation Radiology Orders: 05/15/18 17:45 RIBS LEFT & PA CHEST [RAD] Stat 05/15/18 17:46 HEAD W/O CONTRAST [CT] Stat - Medication Orders Current Medication Orders: Acetaminophen (Tylenol 325mg Tab) 650 mg PO Q6H PRN PRN Reason: Fever >100.4 F Donepezil HCl (Aricept) 5 mg PO DAILY GUSTABO Lisinopril (Zestril) 5 mg PO DAILY GUSTABO Discontinued Medications Oxycodone/Acetaminophen (Percocet 5/325 Mg Tab) 1 tab PO STAT STA Stop: 05/15/18 18:39 Disposition/Present on Arrival - Present on Arrival Any Indicators Present on Arrival: No History of DVT/PE: Yes History of Uncontrolled Diabetes: No Urinary Catheter: No History of Decub. Ulcer: No History Surgical Site Infection Following: None - Disposition Have Diagnosis and Disposition been Completed?: Yes Diagnosis: Syncope, Rib fracture Disposition: HOSPITALIZED Disposition Time: 19:00 Patient Plan: Admission Patient Problems: Current Active Problems Problem Status Onset Rib fracture Acute Syncope Acute Condition: FAIR Discharge Instructions (ExitCare): Rib Fractures in Adults, Syncope (Fainting), Syncope (ED) Forms: [employer] ([place])
[2018-05-15] MEDS ORDERED: Sodium Chloride 0.9% 1,000 ML IV SCH (19:30)
[2018-05-15 20:24] LABS: HEMOGLOBIN 12.5 g/dL (14.0-18.0); MEAN CELL VOLUME 93.3 fl (80.0-105.0); MEAN CORPUSCULAR HEMOGLOBIN 31.2 pg (25.0-35.0); MEAN CORPUSCULAR HGB CONC 33.4 g/dl (31.0-37.0); RBC 4.01 10^6/uL (3.5-6.1); RED CELL DISTRIBUTION WIDTH 13.6 % (11.5-14.5)
[2018-05-15 20:25] LABS: BASO # 0.01 K/mm3 (0.0-2.0); BASO % 0.1 % (0.0-3.0); EOS # 0.1 (0.0-0.7); EOS % 0.6 % (1.5-5.0); GRAN # 5.96 (1.4-6.5); GRAN % 74.7 % (50.0-68.0); LYMPH # 1.2 (1.2-3.4); LYMPH % 15.3 % (22.0-35.0); MEAN PLATELET VOLUME 8.8 fl (7.0-11.0); MONO # 0.7 (0.1-0.6); MONO % 9.3 % (1.0-6.0)
[2018-05-15 20:29] LABS: INR 1.54; PROTHROMBIN TIME 17.7 SECONDS (9.4-12.5)
[2018-05-15 20:30] LABS: PARTIAL THROMBOPLASTIN TIME 52.1 Seconds (25.1-36.5)
[2018-05-15 20:43] LABS: BLOOD UREA NITROGEN 18 mg/dL (7-21); GFR NON-AFRICAN AMERICAN > 60
[2018-05-15 20:44] LABS: ALB/GLOB RATIO 1.1 (1.1-1.8); ALBUMIN 3.5 g/dL (3.0-4.8); ALT/SGPT 26 U/L (7-56); AST/SGOT 24 U/L (17-59); CALCIUM 8.7 mg/dL (8.4-10.5); TROPONIN I 0.03 ng/mL
--- NOTE | 2018-05-16 05:18 | CP.PCM.HP ---
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 Patient reports he was trying to move from one chair to the other and fell forward on his furniture. Patient hit his head and the left side of his chest. He denied any LOC, dizziness, and predromal symptoms. Patient did admit to laying on the floor for approx 1-2 hours before being found by his visiting nurse. Patient reports feeling weak and admits that the last time he was admitted in November 2017 he was experiencing similar complaints of weakness. Patient also reported his last fall was 1 year ago. Patient reports using a cane at times and a wheelchair. He denied any recent travel/sick contacts. 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 Tineo Present on Admission - Present on Admission Any Indicators Present on Admission: No Review of Systems - Review of Systems All systems: reviewed and no additional remarkable complaints except Review of Systems: as per HPI Past Patient History - Infectious Disease Hx of Infectious Diseases: None - Tetanus Immunizations Tetanus Immunization: Unknown - Past Social History Smoking Status: Former Smoker - CARDIAC Hx Cardiac Disorders: Yes Hx Cardia Arrhythmia: Yes (A-Fib) Hx Congestive Heart Failure: Yes Hx Hypertension: Yes - PULMONARY Hx Respiratory Disorders: Yes Hx Pneumonia: Yes - NEUROLOGICAL Hx Neurological Disorder: Yes HX Cerebrovascular Accident: Yes (3 years ago) - HEENT Hx HEENT Problems: No - RENAL Hx Chronic Kidney Disease: No - ENDOCRINE/METABOLIC Hx Endocrine Disorders: Yes Hx Hypothyroidism: Yes - HEMATOLOGICAL/ONCOLOGICAL Hx Blood Disorders: Yes Other/Comment: dvt - INTEGUMENTARY Hx Dermatological Problems: No - MUSCULOSKELETAL/RHEUMATOLOGICAL Hx Musculoskeletal Disorders: Yes Hx Degenerative Joint Disease: Yes Hx Falls: Yes Hx Unsteady Gait: Yes (Wheelchair and uses cane) - GASTROINTESTINAL Hx Gastrointestinal Disorders: No - GENITOURINARY/GYNECOLOGICAL Hx Genitourinary Disorders: Yes Hx Prostate Problems: Yes - PSYCHIATRIC Hx Psychophysiologic Disorder: No Hx Substance Use: No - SURGICAL HISTORY Hx Surgeries: Yes Hx Appendectomy: Yes Other/Comment: tonsillectomy - ANESTHESIA Hx Anesthesia: Yes Hx Anesthesia Reactions: No Hx Malignant Hyperthermia: No Meds Allergies/Adverse Reactions: Allergies Allergy/AdvReac Type Severity Reaction Status Date / Time No Known Allergies Allergy Verified 11/17/17 21:10 Physical Exam - Constitutional Appears: Non-toxic, No Acute Distress - Head Exam Head Exam: ATRAUMATIC, NORMAL INSPECTION, NORMOCEPHALIC - Eye Exam Eye Exam: EOMI, Normal appearance, PERRL. absent: Conjunctival injection, Scleral icterus - ENT Exam ENT Exam: Mucous Membranes Dry - Neck Exam Neck exam: Positive for: Normal Inspection - Respiratory Exam Respiratory Exam: Chest Wall Tenderness (left side to palpation; no skin changes/ecchymosis noted), Clear to Auscultation Bilateral, NORMAL BREATHING PATTERN. absent: Accessory Muscle Use, Rales, Rhonchi, Wheezes, Respiratory Distress - Cardiovascular Exam Cardiovascular Exam: +S1, +S2 - GI/Abdominal Exam GI & Abdominal Exam: Normal Bowel Sounds, Soft. absent: Rigid, Tenderness - Rectal Exam Rectal Exam: Deferred - Extremities Exam Extremities exam: Positive for: pedal pulses present. Negative for: calf te nderness, pedal edema, tenderness Additional comments: L hand contracted LUE weaker than RUE muscle strength +5/5 b/l LE - Neurological Exam Neurological exam: Alert, CN II-XII Intact, Oriented x3 - Psychiatric Exam Psychiatric exam: Normal Affect, Normal Mood - Skin Skin Exam: Dry, Intact, Normal Color, Warm Results - Vital Signs Recent Vital Signs: Last Vital Signs Temp 97.7 F 05/15/18 17:39 Pulse 60 05/15/18 19:50 Resp 20 05/16/18 03:50 BP 145/66 05/15/18 19:50 Pulse Ox 95 05/15/18 19:50 - Labs Result Diagrams: 05/16/18 06:50 05/16/18 06:50 Labs: Laboratory Results - last 24 hr 05/15/18 05/15/18 05/15/18 19:57 19:57 19:57 WBC 8.0 RBC 4.01 Hgb 12.5 L Hct 37.4 L MCV 93.3 MCH 31.2 MCHC 33.4 RDW 13.6 Plt Count 158 MPV 8.8 Gran % 74.7 H Lymph % (Auto) 15.3 L [place] % (Auto) 9.3 H Eos % (Auto) 0.6 L Baso % (Auto) 0.1 Gran # 5.96 Lymph # (Auto) 1.2 [place] # (Auto) 0.7 H Eos # (Auto) 0.1 Baso # (Auto) 0.01 PT 17.7 H INR 1.54 APTT 52.1 H Sodium 136 Potassium 4.4 Chloride 104 Carbon Dioxide 28 Anion Gap 8 L BUN 18 Creatinine 0.8 Est GFR ( Amer) > 60 Est GFR (Non-Af Amer) > 60 Random Glucose 108 Calcium 8.7 Magnesium 2.0 Total Bilirubin 0.9 AST 24 ALT 26 Alkaline Phosphatase 67 Lactate Dehydrogenase 383 Total Creatine Kinase 46 Troponin I 0.03 D Total Protein 6.6 Albumin 3.5 Globulin 3.1 Albumin/Globulin Ratio 1.1 Assessment & Plan - Assessment and Plan (Free Text) Assessment: 88 yo male PMHx Afib on coumadin, hypothyroidism, HLD, CVA with L hand contracture, hemangioma L frontal lobe, 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 Head CT was unremarkable. Patient's CXR revealed L anterior 9th rib nondisplaced fracture. Patient has ultram prn for pain management. Patient's complained of generalized weakness and needs PT/OT for deconditioning and unsteady gait. Vitals and Labs reviewed. Home medications continued. patient requesting discharge to [facility] after medical optimization. Discussed with Dr. Courtney Bowser pgy3 <Andrey Valdez - Last Filed: 05/16/18 19:32> Results - Vital Signs Recent Vital Signs: Last Vital Signs Temp 97.4 F L 05/16/18 17:14 Pulse 66 05/16/18 18:00 Resp 20 05/16/18 17:14 BP 138/82 05/16/18 17:14 Pulse Ox 95 05/16/18 17:14 - Labs Result Diagrams: 05/16/18 06:50 05/16/18 06:50 Labs: Laboratory Results - last 24 hr 05/15/18 05/15/18 05/15/18 19:57 19:57 19:57 WBC 8.0 RBC 4.01 Hgb 12.5 L Hct 37.4 L MCV 93.3 MCH 31.2 MCHC 33.4 RDW 13.6 Plt Count 158 MPV 8.8 Gran % 74.7 H Lymph % (Auto) 15.3 L [place] % (Auto) 9.3 H Eos % (Auto) 0.6 L Baso % (Auto) 0.1 Gran # 5.96 Lymph # (Auto) 1.2 [place] # (Auto) 0.7 H Eos # (Auto) 0.1 Baso # (Auto) 0.01 PT 17.7 H INR 1.54 APTT 52.1 H Sodium 136 Potassium 4.4 Chloride 104 Carbon Dioxide 28 Anion Gap 8 L BUN 18 Creatinine 0.8 Est GFR ( Amer) > 60 Est GFR (Non-Af Amer) > 60 Random Glucose 108 Calcium 8.7 Phosphorus Magnesium 2.0 Total Bilirubin 0.9 AST 24 ALT 26 Alkaline Phosphatase 67 Lactate Dehydrogenase 383 Total Creatine Kinase 46 Troponin I 0.03 D Total Protein 6.6 Albumin 3.5 Globulin 3.1 Albumin/Globulin Ratio 1.1 Triglycerides Cholesterol LDL Cholesterol Direct HDL Cholesterol Free T4 TSH 3rd Generation 05/16/18 05/16/18 05/16/18 06:50 06:50 06:50 WBC 7.0 RBC 3.70 Hgb 11.4 L Hct 34.2 L MCV 92.4 MCH 30.8 MCHC 33.3 RDW 13.8 Plt Count 136 MPV 8.8 Gran % 70.9 H Lymph % (Auto) 18.1 L [place] % (Auto) 9.2 H Eos % (Auto) 1.7 Baso % (Auto) 0.1 Gran # 4.92 Lymph # (Auto) 1.3 [place] # (Auto) 0.6 Eos # (Auto) 0.1 Baso # (Auto) 0.01 PT 19.1 H INR 1.64 APTT 55.2 H Sodium 137 Potassium 3.8 Chloride 107 Carbon Dioxide 27 Anion Gap 7 L BUN 15 Creatinine 0.7 L Est GFR ( Amer) > 60 Est GFR (Non-Af Amer) > 60 Random Glucose 116 H Calcium 8.2 L Phosphorus 3.4 Magnesium 2.1 Total Bilirubin 1.1 AST 19 ALT 21 Alkaline Phosphatase 59 Lactate Dehydrogenase Total Creatine Kinase Troponin I 0.03 Total Protein 6.2 Albumin 3.0 Globulin 3.1 Albumin/Globulin Ratio 1.0 L Triglycerides 55 Cholesterol 111 L LDL Cholesterol Direct 69 HDL Cholesterol 35 Free T4 TSH 3rd Generation 05/16/18 05/16/18 06:50 06:50 WBC RBC Hgb Hct MCV MCH MCHC RDW Plt Count MPV Gran % Lymph % (Auto) [place] % (Auto) Eos % (Auto) Baso % (Auto) Gran # Lymph # (Auto) [place] # (Auto) Eos # (Auto) Baso # (Auto) PT INR APTT Sodium Potassium Chloride Carbon Dioxide Anion Gap BUN Creatinine Est GFR ( Amer) Est GFR (Non-Af Amer) Random Glucose Calcium Phosphorus Magnesium Total Bilirubin AST ALT Alkaline Phosphatase Lactate Dehydrogenase Total Creatine Kinase 43 Troponin I Total Protein Albumin Globulin Albumin/Globulin Ratio Triglycerides Cholesterol LDL Cholesterol Direct HDL Cholesterol Free T4 1.30 TSH 3rd Generation 2.66 Assessment & Plan - Assessment and Plan (Free Text) Plan: Pt seen and examined. I reviewed the note of the medical attendant and I agree with the note including the assessment and plan. I reviewed the medications and last labs. Pt with fall and has L 9h rib fracture. The pt will need PT and DENZEL. He is agreeable to this. He will be on Ultram for his pain. CT of the head was reviewed. He has a fib and will need to continue with Coumadin. HTN will be controlled with Lisinopril.
[2018-05-16 07:05] LABS: EOS % 1.7 % (1.5-5.0); GRAN % 70.9 % (50.0-68.0); HEMOGLOBIN 11.4 g/dL (14.0-18.0); LYMPH % 18.1 % (22.0-35.0); MEAN CELL VOLUME 92.4 fl (80.0-105.0); MEAN CORPUSCULAR HEMOGLOBIN 30.8 pg (25.0-35.0); MEAN CORPUSCULAR HGB CONC 33.3 g/dl (31.0-37.0); MEAN PLATELET VOLUME 8.8 fl (7.0-11.0); MONO % 9.2 % (1.0-6.0); RBC 3.7 10^6/uL (3.5-6.1); RED CELL DISTRIBUTION WIDTH 13.8 % (11.5-14.5)
[2018-05-16 07:06] LABS: BASO # 0.01 K/mm3 (0.0-2.0); BASO % 0.1 % (0.0-3.0); EOS # 0.1 (0.0-0.7); GRAN # 4.92 (1.4-6.5); LYMPH # 1.3 (1.2-3.4); MONO # 0.6 (0.1-0.6)
[2018-05-16 07:12] LABS: INR 1.64; PARTIAL THROMBOPLASTIN TIME 55.2 Seconds (25.1-36.5); PROTHROMBIN TIME 19.1 SECONDS (9.4-12.5)
[2018-05-16 07:29] LABS: ALT/SGPT 21 U/L (7-56); AST/SGOT 19 U/L (17-59); BLOOD UREA NITROGEN 15 mg/dL (7-21); CALCIUM 8.2 mg/dL (8.4-10.5); GFR NON-AFRICAN AMERICAN > 60; HDL CHOLESTEROL 35 mg/dL (29-60)
[2018-05-16 07:31] LABS: LDL CHOLESTEROL 69 mg/dL (0-129); TROPONIN I 0.03 ng/mL
[2018-05-16 07:35] LABS: FREE T4 1.3 ng/dL (0.78-2.19)
--- NOTE | 2018-05-16 09:31 | CARD ---
APPROVED REPORT Date of service: 05/15/2018 EKG Measurement Heart [id number] <Conclusion> Sinus bradycardia with sinus arrhythmia Left bundle branch block Abnormal ECG
--- NOTE | 2018-05-17 05:21 | CP.PCM.PN ---
<Samara Bowser - Last Filed: 05/17/18 10:41> Subjective - Date & Time of Evaluation Date of Evaluation: 05/17/18 Time of Evaluation: 07:15 - Subjective Subjective: Pgy3 Medicine note for Dr. Valdez Patient seen and examined at bedside. Nursing reported patient had no acute events overnight. This AM patient reported he was in a little pain around his left ribs where he has a fracture but "did not want to bother anyone" overnight and thus did not ask for pain medications. Patient encouraged to ask for medications to relieve his pain. He also complained of constipation. Patient otherwise denied headache, dizziness, chest pain, SOB, cough, abd pain, nausea, vomiting, urinary discomfort, pain/swelling in his legs b/l. Objective - Vital Signs/Intake and Output Vital Signs (last 24 hours): Temp Pulse Resp BP Pulse Ox 97.4 F L 69 20 138/82 95 05/16/18 17:14 05/17/18 02:00 05/16/18 17:14 05/16/18 17:14 05/16/18 17:14 Intake and Output: 05/16/18 05/17/18 18:59 06:59 Intake Total 600 Balance 600 - Medications Medications: Current Medications Acetaminophen (Tylenol 325mg Tab) 650 mg PO Q6H PRN PRN Reason: Fever >100.4 F Last Admin: 05/16/18 12:42 Dose: 650 mg Docusate Sodium (Colace) 100 mg PO BID GUSTABO Donepezil HCl (Aricept) 5 mg PO DAILY [facility] Last Admin: 05/16/18 10:49 Dose: 5 mg Lisinopril (Zestril) 5 mg PO DAILY [facility] Last Admin: 05/16/18 10:48 Dose: 5 mg Tramadol HCl (Ultram) 50 mg PO TID PRN PRN Reason: Pain, severe (8-10) Warfarin Sodium (Coumadin) 5 mg PO 1800 GUSTABO; Protocol Last Admin: 05/16/18 18:07 Dose: 5 mg - Labs Labs: 05/16/18 06:50 05/16/18 06:50 PT 19.1 SECONDS (9.4-12.5) H 05/16/18 06:50 INR 1.64 05/16/18 06:50 APTT 55.2 Seconds (25.1-36.5) H 05/16/18 06:50 - Constitutional Appears: No Acute Distress - Head Exam Head Exam: ATRAUMATIC, NORMAL INSPECTION, NORMOCEPHALIC - Eye Exam Eye Exam: EOMI, Normal appearance. absent: Conjunctival injection, Scleral icterus - ENT Exam ENT Exam: Mucous Membranes Moist - Neck Exam Neck Exam: Full ROM - Respiratory Exam Respiratory Exam: NORMAL BREATHING PATTERN. absent: Accessory Muscle Use, Rales, Rhonchi, Wheezes - Cardiovascular Exam Cardiovascular Exam: +S1, +S2. absent: Murmur - GI/Abdominal Exam GI & Abdominal Exam: Soft, Normal Bowel Sounds. absent: Distended, Firm, Gu arding, Rigid, Tenderness - Rectal Exam Rectal Exam: Deferred - Extremities Exam Extremities Exam: absent: Pedal Edema, Tenderness Additional comments: L hand contracted LUE weaker than RUE muscle strength +5/5 b/l LE - Neurological Exam Neurological Exam: Alert, Awake, Oriented x3 - Psychiatric Exam Psychiatric exam: Normal Affect, Normal Mood - Skin Skin Exam: Dry, Intact, Normal Color, Warm Assessment and Plan - Assessment and Plan (Free Text) Assessment: - Mechanical fall - Acute nondisplaced fracture in left anterior 9th rib - Constipation - Afib on coumadin - HTN - CVA with L hand weakness - HLD - L frontal lobe hemangioma - LLE DVT s/p IVC filter Mar 2016 - Mild dementia- likely Alzheimer's type - Fall risk - Hard of hearing Plan: Patient encouraged to ask nursing for pain meds as needed. Bowel regimen in place with colace and miralax. Continue coumadin 5mg to reach goal INR 2-3 for history of Afib and DVT. Patient's BP slightly elevated this AM SBP 150s- likely secondary to pain. Will continue to monitor and continue home dose Lisinopril 5mg before adjusting. Will continue patient's aricept for dementia while admitted. Fall risk precautions in place. Patient encouraged to work with PT/OT and is amenable to going to [facility] upon discharge. Case workers and social work aware. Patient's status changed to inpatient for 3 nights prior to patient being discharged to [facility] likely [facility]. Discussed with Dr. Courtney Bowser PGY3 <Andrey Valdez S - Last Filed: 05/17/18 20:34> Objective - Vital Signs/Intake and Output Vital Signs (last 24 hours): Temp Pulse Resp BP Pulse Ox 98.1 F 19 L 63 H 159/91 H 95 05/17/18 18:00 05/17/18 18:00 05/17/18 18:00 05/17/18 18:00 05/17/18 18:00 Intake and Output: 05/17/18 05/18/18 18:59 06:59 Intake Total 1040 Balance 1040 - Medications Medications: Current Medications Acetaminophen (Tylenol 325mg Tab) 650 mg PO Q6H PRN PRN Reason: Fever >100.4 F Last Admin: 05/16/18 12:42 Dose: 650 mg Docusate Sodium (Colace) 100 mg PO BID [facility] Last Admin: 05/17/18 17:10 Dose: 100 mg Donepezil HCl (Aricept) 5 mg PO DAILY [facility] Last Admin: 05/17/18 10:04 Dose: 5 mg Lisinopril (Zestril) 5 mg PO DAILY [facility] Last Admin: 05/17/18 10:04 Dose: 5 mg Polyethylene Glycol (Miralax) 17 gm PO BID [facility] Last Admin: 05/17/18 17:12 Dose: 17 gm Tramadol HCl (Ultram) 50 mg PO TID PRN PRN Reason: Pain, severe (8-10) Last Admin: 05/17/18 17:13 Dose: 50 mg Warfarin Sodium (Coumadin) 5 mg PO 1800 GUSTABO; Protocol Last Admin: 05/17/18 17:12 Dose: 5 mg - Labs Labs: 05/17/18 06:00 05/17/18 06:00 PT 20.8 SECONDS (9.4-12.5) H 05/17/18 06:00 INR 1.79 05/17/18 06:00 APTT 55.2 Seconds (25.1-36.5) H 05/16/18 06:50 Assessment and Plan - Assessment and Plan (Free Text) Plan: Pt seen and examined. I reviewed the note of the durable medical equipment repairer and I agree with the note including the assessment and plan. I reviewed the medications and last labs. Pt with 9th L rib fx after fall. He is agreeable to DENZEL. He is on Coumadin for A fib. This will be continued. He is on Miralax and Colace for constipation. He is on Aricept for dementia. Eating well. Pain is controlled with meds.
[2018-05-17 06:40] LABS: INR 1.79; PROTHROMBIN TIME 20.8 SECONDS (9.4-12.5)
[2018-05-17 06:42] LABS: BASO # 0.01 K/mm3 (0.0-2.0); BASO % 0.2 % (0.0-3.0); EOS # 0.2 (0.0-0.7); EOS % 3.1 % (1.5-5.0); GRAN # 4.08 (1.4-6.5); GRAN % 65.8 % (50.0-68.0); HEMOGLOBIN 12.4 g/dL (14.0-18.0); LYMPH # 1.4 (1.2-3.4); LYMPH % 23.3 % (22.0-35.0); MEAN CELL VOLUME 91.7 fl (80.0-105.0); MEAN CORPUSCULAR HEMOGLOBIN 31.2 pg (25.0-35.0); MEAN CORPUSCULAR HGB CONC 34.1 g/dl (31.0-37.0); MEAN PLATELET VOLUME 9.1 fl (7.0-11.0); MONO # 0.5 (0.1-0.6); MONO % 7.6 % (1.0-6.0); RBC 3.97 10^6/uL (3.5-6.1); RED CELL DISTRIBUTION WIDTH 13.7 % (11.5-14.5); WHITE BLOOD COUNT 6.2 10^3/uL (4.5-11.0)
[2018-05-17 06:56] LABS: ALBUMIN 3.2 g/dL (3.0-4.8); ALT/SGPT 29 U/L (7-56); AST/SGOT 24 U/L (17-59); BLOOD UREA NITROGEN 16 mg/dL (7-21); CALCIUM 8.2 mg/dL (8.4-10.5); GFR NON-AFRICAN AMERICAN > 60
[2018-05-17] MEDS: POLYETHYLENE GLYCOL 3350 17 GM/Dose PACKET PO SCH ×2 (10:04→17:12)
--- NOTE | 2018-05-17 14:31 | CP.PCM.PCO ---
Physician Communication Note - Physician Communication Note Physician Communication Note: cleared for DENZEL Meneses. 04/19/18
[2018-05-17 15:22] LABS: PH,URINE 6.5 (4.7-8.0); URINE BILIRUBIN NEGATIVE (NEGATIVE); URINE BLOOD MODERATE (NEGATIVE); URINE GLUCOSE (UA) NEGATIVE (NEGATIVE); URINE LEUKOCYTE ESTERASE LARGE Leu/uL (NEGATIVE); URINE PROTEIN 30 mg/dL (<30 mg/dL); URINE UROBILINOGEN 0.2 E.U./dL (<1 E.U./dL)
[2018-05-17 15:27] LABS: URINE APPEARANCE SLIGHT-CLOUDY (CLEAR); URINE COLOR YELLOW (YELLOW)
[2018-05-17 16:00] LABS: URINE WBC 20 - 25 /hpf (0-6)
[2018-05-17 16:01] LABS: URINE BACTERIA MOD (NEG)
[2018-05-18 07:01] VITALS: RESP 20
[2018-05-18 08:14] LABS: BASO # 0.01 K/mm3 (0.0-2.0); BASO % 0.2 % (0.0-3.0); EOS # 0.2 (0.0-0.7); EOS % 3.1 % (1.5-5.0); GRAN # 3.09 (1.4-6.5); GRAN % 60.5 % (50.0-68.0); HEMOGLOBIN 12.2 g/dL (14.0-18.0); LYMPH # 1.4 (1.2-3.4); LYMPH % 27.4 % (22.0-35.0); MEAN CELL VOLUME 91.3 fl (80.0-105.0); MEAN PLATELET VOLUME 9.3 fl (7.0-11.0); MONO # 0.5 (0.1-0.6); MONO % 8.8 % (1.0-6.0); RBC 3.93 10^6/uL (3.5-6.1); RED CELL DISTRIBUTION WIDTH 13.5 % (11.5-14.5); WHITE BLOOD COUNT 5.1 10^3/uL (4.5-11.0)
[2018-05-18 08:45] LABS: ALBUMIN 3.2 g/dL (3.0-4.8); ALT/SGPT 24 U/L (7-56); AST/SGOT 24 U/L (17-59); BLOOD UREA NITROGEN 17 mg/dL (7-21); CALCIUM 8.4 mg/dL (8.4-10.5); GFR NON-AFRICAN AMERICAN > 60
[2018-05-18] MEDS: cefTRIAXone 1 gm 1 GM/100 ML BAG IVPB SCH (09:45)
[2018-05-18] MEDS: POLYETHYLENE GLYCOL 3350 17 GM/Dose PACKET PO SCH ×2 (09:46→17:45)
--- NOTE | 2018-05-18 13:30 | PN ---
DATE: 05/18/2018 SUBJECTIVE: He is comfortable in bed, in no acute distress. No events overnight. No pain. No cough with expectoration. No nausea. No vomiting. PHYSICAL EXAMINATION: GENERAL: Comfortable in bed, sleeping, arousable. VITAL SIGNS: Temperature 97.4, heart rate is 69 per minute, respiratory rate 18 per minute, blood pressure 138/70, pulse ox is 96% on room air. HEENT: Pallor positive. NECK: No lymphadenopathy. CHEST: Air entry present and equal bilaterally. No added sounds. CARDIOVASCULAR: S1, S2 normal. No murmur. No gallop. ABDOMEN: Soft, nontender. No hepatosplenomegaly. EXTREMITIES: No edema. 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 Drowsy. No focal sensory motor deficit. MEDICATIONS: Tylenol 650 q.6 hours p.r.n., senna, Colace, Aricept 5 mg daily, lisinopril 5 mg daily, tramadol mg p.o. t.i.d., Coumadin 5 mg daily. LABORATORY DATA: White count is 7, hemoglobin 11.4, hematocrit 34.2, platelets 136. Sodium 137, potassium 3.8, BUN 15, creatinine 0.7, INR 1.6. ASSESSMENT: 1. Status post fall at home, multiple falls in the past. 2. Atrial fibrillation, on Coumadin. 3. Hypothyroidism. 4. Cerebrovascular accident. 5. Left hand contracture. 6. Dementia. 7. History of deep vein thrombosis, lower extremity, inferior vena cava filter. PLAN: We will continue ceftriaxone 1 g daily, Ultram p.r.n. for pain, Coumadin 5 mg daily. We will monitor coags. Pain controlled with the current medication Tylenol 650 q.6 hours p.r.n., , senna, Colace to continue, lisinopril 5 mg daily. Subacute placement will be arranged , hemoglobin/hematocrit stable. Electrolytes within normal limits. Renal functions are normal. Pearl Barbosa MD (Delete this signature block when dictator is a preceptor.) SULTANA
[2018-05-19 07:44] LABS: BASO # 0.01 K/mm3 (0.0-2.0); BASO % 0.2 % (0.0-3.0); EOS # 0.2 (0.0-0.7); EOS % 4.4 % (1.5-5.0); GRAN # 3.08 (1.4-6.5); GRAN % 59.7 % (50.0-68.0); HEMOGLOBIN 12.6 g/dL (14.0-18.0); LYMPH # 1.3 (1.2-3.4); LYMPH % 25.3 % (22.0-35.0); MEAN CELL VOLUME 90.9 fl (80.0-105.0); MEAN CORPUSCULAR HGB CONC 34.1 g/dl (31.0-37.0); MEAN PLATELET VOLUME 8.9 fl (7.0-11.0); MONO # 0.5 (0.1-0.6); MONO % 10.4 % (1.0-6.0); RBC 4.07 10^6/uL (3.5-6.1); RED CELL DISTRIBUTION WIDTH 13.3 % (11.5-14.5); WHITE BLOOD COUNT 5.2 10^3/uL (4.5-11.0)
[2018-05-19 08:05] LABS: ALBUMIN 3.2 g/dL (3.0-4.8); ALT/SGPT 24 U/L (7-56); AST/SGOT 24 U/L (17-59); BLOOD UREA NITROGEN 19 mg/dL (7-21); CALCIUM 8.5 mg/dL (8.4-10.5); GFR NON-AFRICAN AMERICAN > 60
[2018-05-19] MEDS: POLYETHYLENE GLYCOL 3350 17 GM/Dose PACKET PO SCH ×2 (10:35→17:46)
[2018-05-19] MEDS: cefTRIAXone 1 gm 1 GM/100 ML BAG IVPB SCH (10:35)
--- NOTE | 2018-05-19 10:37 | CP.PCM.PN ---
Subjective - Date & Time of Evaluation Date of Evaluation: 05/19/18 Time of Evaluation: 10:00 - Subjective Subjective: SUBJECTIVE: He is comfortable in bed, in no acute distress. No events overnight. No pain. No cough with expectoration. No nausea. No vomiting. urine culture growing gramnegative rods. PHYSICAL EXAMINATION: GENERAL: Comfortable in bed, sleeping, arousable. VITAL SIGNS: reviewed. HEENT: Pallor positive. NECK: No lymphadenopathy. CHEST: Air entry present and equal bilaterally. No added sounds. CARDIOVASCULAR: S1, S2 normal. No murmur. No gallop. ABDOMEN: Soft, nontender. No hepatosplenomegaly. EXTREMITIES: No edema. 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 Drowsy. No focal sensory motor deficit. MEDICATIONS: reviewed. LABORATORY DATA: reviewed. ASSESSMENT: 1. Status post fall at home, multiple falls in the past. 2. Atrial fibrillation, on Coumadin. 3. Hypothyroidism. 4. Cerebrovascular accident. 5. Left hand contracture. 6. Dementia. 7. History of deep vein thrombosis, lower extremity, inferior vena cava filter. 8. UTI, gram negative PLAN: We will continue ceftriaxone 1 g daily, Ultram p.r.n. for pain, Coumadin 5 mg daily. We will monitor coags. Pain controlled with the current medication Tylenol 650 q.6 hours p.r.n., senna, Colace to continue, lisinopril 5 mg daily. Subacute placement will be arranged hemoglobin/hematocrit stable. Electrolytes within normal limits. Renal functions are normal. Consult ID, Dr. Chew. Pearl Barbosa MD Objective - Vital Signs/Intake and Output Vital Signs (last 24 hours): Temp Pulse Resp BP Pulse Ox 99.2 F 60 20 159/86 H 96 05/19/18 06:00 05/19/18 06:00 05/19/18 06:00 05/19/18 06:00 05/19/18 06:00 - Medications Medications: Current Medications Acetaminophen (Tylenol 325mg Tab) 650 mg PO Q6H PRN PRN Reason: Fever >100.4 F Last Admin: 05/16/18 12:42 Dose: 650 mg Docusate Sodium (Colace) 100 mg PO BID [facility] Last Admin: 05/18/18 17:45 Dose: 100 mg Donepezil HCl (Aricept) 5 mg PO DAILY [facility] Last Admin: 05/18/18 09:44 Dose: 5 mg Ceftriaxone Sodium (Rocephin 1 Gram Ivpb) 1 gm in 100 mls @ 100 mls/hr IVPB DAILY [facility]; Protocol Last Admin: 05/18/18 09:45 Dose: 100 mls/hr Lisinopril (Zestril) 5 mg PO DAILY [facility] Last Admin: 05/18/18 09:45 Dose: 5 mg Polyethylene Glycol (Miralax) 17 gm PO BID [facility] Last Admin: 05/18/18 17:45 Dose: 17 gm Tramadol HCl (Ultram) 50 mg PO TID PRN PRN Reason: Pain, severe (8-10) Last Admin: 05/17/18 17:13 Dose: 50 mg Warfarin Sodium (Coumadin) 5 mg PO 1800 [facility]; Protocol Last Admin: 05/18/18 17:45 Dose: 5 mg - Labs Labs: 05/19/18 07:00 05/19/18 07:00 PT 20.8 SECONDS (9.4-12.5) H 05/17/18 06:00 INR 1.79 05/17/18 06:00 APTT 55.2 Seconds (25.1-36.5) H 05/16/18 06:50
--- NOTE | 2018-05-19 14:47 | CON ---
DATE OF CONSULTATION: 05/19/2018 The patient is seen earlier today in Room 378. CHIEF COMPLAINT: Weakness and Gram-negative eva in the urine x1 day duration. HISTORY OF PRESENT ILLNESS: This is an 88-year-old male with a history of cerebrovascular accident, hypertension, coronary artery disease, dyslipidemia, DVT, hypertension, hypothyroidism, cerebrovascular accident, who was admitted with diagnosis of syncope and a fracture. The patient's urine culture was sent and had Gram-negative eva in the urine. Infectious disease consultation was requested. The patient states he is not having any fevers or any chills. He is having dysuria, occasional frequency and hesitancy. No abdominal pain, diarrhea, constipation or bright red blood per rectum. No melena. PAST MEDICAL HISTORY: Significant for cerebrovascular accident, hypothyroidism, DVT, congestive heart failure, hypertension, coronary artery disease, and dyslipidemia. PAST SURGICAL HISTORY: Significant for umbilical surgery, appendectomy, tonsillectomy, IVC filter placement. MEDICATIONS: Zestril, Coumadin, Aricept. ALLERGIES: THE PATIENT HAS NO KNOWN ALLERGIES. REVIEW OF SYSTEMS: A 14-point review of systems is performed. No headaches. No blurry vision. No neck pain. No abdominal pain, diarrhea, constipation or bright red blood per rectum. He is having dysuria and frequency. PHYSICAL EXAMINATION: GENERAL: The patient is in bed in no acute distress, nontoxic. VITAL SIGNS: Temperature of 98, blood pressure is 150/80, respiratory rate of 20, heart rate of 60. HEENT: Unremarkable. NECK: Supple. LUNGS: Decreased breath sounds. HEART: Normal S1 and S2. ABDOMEN: Soft, nontender. No organomegaly. No rebound or guarding. No masses. LABORATORY EXAMINATION: White count of 5.2, hemoglobin of 12, platelets of 159. Coagulation is noted. Chemistries reveal a BUN of 19, creatinine of 0.7. The urinalysis reveals moderate bacteria and 20-25 wbc's. ASSESSMENT/PLAN: This is an 88-year-old male with cerebrovascular accident, hypothyroidism, congestive heart failure, deep vein thrombosis, hypertension, coronary artery disease with #1 is a complicated Gram-negative eva urinary tract infection. Must rule out underlying prostate disease. We will start the patient on Maxipime and discontinue ceftriaxone and check on the identification and sensitivity of the Gram-negative eva. We will also order blood cultures x2 and a PSA. We will make further recommendations upon availability of initial results. We will follow with you. Ranulfo Blanchard MD
[2018-05-19] MEDS: Cefepime 1gm in NS 100ml 1 GM/100 ML BAG IVPB SCH (21:52)
[2018-05-20] MEDS: Cefepime 1gm in NS 100ml 1 GM/100 ML BAG IVPB SCH (05:59)
[2018-05-20 08:12] VITALS: BP 144/92; PULSE 59; TEMP 98.5; O2SAT 96
[2018-05-20 08:26] LABS: BASO # 0.01 K/mm3 (0.0-2.0); BASO % 0.2 % (0.0-3.0); EOS # 0.2 (0.0-0.7); EOS % 3.6 % (1.5-5.0); GRAN # 2.71 (1.4-6.5); GRAN % 58.2 % (50.0-68.0); HEMOGLOBIN 12.5 g/dL (14.0-18.0); LYMPH # 1.3 (1.2-3.4); LYMPH % 27.7 % (22.0-35.0); MEAN CELL VOLUME 91.2 fl (80.0-105.0); MEAN CORPUSCULAR HEMOGLOBIN 30.6 pg (25.0-35.0); MEAN CORPUSCULAR HGB CONC 33.6 g/dl (31.0-37.0); MEAN PLATELET VOLUME 8.7 fl (7.0-11.0); MONO # 0.5 (0.1-0.6); MONO % 10.3 % (1.0-6.0); RBC 4.08 10^6/uL (3.5-6.1); RED CELL DISTRIBUTION WIDTH 13.3 % (11.5-14.5); WHITE BLOOD COUNT 4.7 10^3/uL (4.5-11.0)
[2018-05-20 08:30] LABS: INR 2.5; PARTIAL THROMBOPLASTIN TIME 63.9 Seconds (25.1-36.5); PROTHROMBIN TIME 29.3 SECONDS (9.4-12.5)
[2018-05-20 08:34] LABS: ALBUMIN 3.2 g/dL (3.0-4.8); ALT/SGPT 31 U/L (7-56); AST/SGOT 25 U/L (17-59); BLOOD UREA NITROGEN 17 mg/dL (7-21); CALCIUM 8.5 mg/dL (8.4-10.5); GFR NON-AFRICAN AMERICAN > 60
--- NOTE | 2018-05-20 09:38 | CP.PCM.DIS ---
<Samara Bowser - Last Filed: 05/20/18 11:10> Provider - Provider Date of Admission: 05/16/18 18:36 Attending physician: Andrey Valdez MD Primary care physician: HARINI Tineo Consults: 05/16/18 03:57 Social Work Referral Routine Comment: Carleen score of 12 Physician Instructions: Reason For Exam: Carleen score of 12 05/16/18 08:32 Informatics Developer [Case Management Referral] Routine Comment: Physician Instructions: Reason For Exam: discharge to [facility] when medically optimized Reason for Referral: Discharge Planning 05/19/18 10:34 Consult [Physician Consult] Routine Comment: Consulting Provider: Ranulfo Blanchard Consulting Physician: Ranulfo Blanchard Reason for Consult: UTI, recurrent 05/19/18 13:23 Wound Care [Nursing Referral for Wound Care] Routine Comment: Physician Instructions: Reason For Exam: redness on backside Time Spent in preparation of Discharge (in minutes): 45 Hospital Course - Lab Results Lab Results: Micro Results 05/18/18 06:15 Urine,Clean Catch Urine Culture - Preliminary Proteus Mirabilis Most Recent Lab Values WBC 4.7 10^3/uL (4.5-11.0) 05/20/18 08:00 RBC 4.08 10^6/uL (3.5-6.1) 05/20/18 08:00 Hgb 12.5 g/dL (14.0-18.0) L 05/20/18 08:00 Hct 37.2 % (42.0-52.0) L 05/20/18 08:00 MCV 91.2 fl (80.0-105.0) 05/20/18 08:00 MCH 30.6 pg (25.0-35.0) 05/20/18 08:00 MCHC 33.6 g/dl (31.0-37.0) 05/20/18 08:00 RDW 13.3 % (11.5-14.5) 05/20/18 08:00 Plt Count 156 10^3/uL (120.0-450.0) 05/20/18 08:00 MPV 8.7 fl (7.0-11.0) 05/20/18 08:00 Gran % 58.2 % (50.0-68.0) 05/20/18 08:00 Lymph % (Auto) 27.7 % (22.0-35.0) 05/20/18 08:00 Rogers % (Auto) 10.3 % (1.0-6.0) H 05/20/18 08:00 Eos % (Auto) 3.6 % (1.5-5.0) 05/20/18 08:00 Baso % (Auto) 0.2 % (0.0-3.0) 05/20/18 08:00 Gran # 2.71 (1.4-6.5) 05/20/18 08:00 Lymph # (Auto) 1.3 (1.2-3.4) 05/20/18 08:00 Rogers # (Auto) 0.5 (0.1-0.6) 05/20/18 08:00 Eos # (Auto) 0.2 (0.0-0.7) 05/20/18 08:00 Baso # (Auto) 0.01 K/mm3 (0.0-2.0) 05/20/18 08:00 PT 29.3 SECONDS (9.4-12.5) H 05/20/18 08:00 INR 2.50 05/20/18 08:00 APTT 63.9 Seconds (25.1-36.5) H 05/20/18 08:00 Sodium 136 mmol/L (132-148) 05/20/18 08:00 Potassium 3.8 mmol/L (3.6-5.0) 05/20/18 08:00 Chloride 105 mmol/L (98-107) 05/20/18 08:00 Carbon Dioxide 27 mmol/L (21-33) 05/20/18 08:00 Anion Gap 8 (10-20) L 05/20/18 08:00 BUN 17 mg/dL (7-21) 05/20/18 08:00 Creatinine 0.7 mg/dl (0.8-1.5) L 05/20/18 08:00 Est GFR ( Amer) > 60 05/20/18 08:00 Est GFR (Non-Af Amer) > 60 05/20/18 08:00 Random Glucose 103 mg/dL (70-110) 05/20/18 08:00 Calcium 8.5 mg/dL (8.4-10.5) 05/20/18 08:00 Phosphorus 3.1 mg/dL (2.5-4.5) 05/20/18 08:00 Magnesium 2.1 mg/dL (1.7-2.2) 05/20/18 08:00 Total Bilirubin 0.6 mg/dL (0.2-1.3) 05/20/18 08:00 AST 25 U/L (17-59) 05/20/18 08:00 ALT 31 U/L (7-56) 05/20/18 08:00 Alkaline Phosphatase 64 U/L (38-126) 05/20/18 08:00 Lactate Dehydrogenase 383 U/L (333-699) 05/15/18 19:57 Total Creatine Kinase 43 U/L (35-230) 05/16/18 06:50 Troponin I 0.03 ng/mL 05/16/18 06:50 Total Protein 6.6 g/dL (5.8-8.3) 05/20/18 08:00 Albumin 3.2 g/dL (3.0-4.8) 05/20/18 08:00 Globulin 3.4 gm/dL 05/20/18 08:00 Albumin/Globulin Ratio 1.0 (1.1-1.8) L 05/20/18 08:00 Triglycerides 55 mg/dL (35-160) 05/16/18 06:50 Cholesterol 111 mg/dL (130-200) L 05/16/18 06:50 LDL Cholesterol Direct 69 mg/dL (0-129) 05/16/18 06:50 HDL Cholesterol 35 mg/dL (29-60) 05/16/18 06:50 Prostate Specific Ag 4.8 ng/mL (0.00-2.5) H 05/19/18 07:00 Free T4 1.30 ng/dL (0.78-2.19) 05/16/18 06:50 TSH 3rd Generation 2.66 mIU/mL (0.46-4.68) 05/16/18 06:50 Urine Color Yellow (YELLOW) 05/17/18 15:00 Urine Appearance Slight-cloudy (CLEAR) 05/17/18 15:00 Urine pH 6.5 (4.7-8.0) 05/17/18 15:00 Ur Specific [place] 1.020 (1.005-1.035) 05/17/18 15:00 Urine Protein 30 mg/dL (<30 mg/dL) H 05/17/18 15:00 Urine Glucose (UA) Negative mg/dL (NEGATIVE) 05/17/18 15:00 Urine Ketones Negative mg/dL (NEGATIVE) 05/17/18 15:00 Urine Blood Moderate (NEGATIVE) H 05/17/18 15:00 Urine Nitrate Negative (NEGATIVE) 05/17/18 15:00 Urine Bilirubin Negative (NEGATIVE) 05/17/18 15:00 Urine Urobilinogen 0.2 E.U./dL (<1 E.U./dL) 05/17/18 15:00 Ur Leukocyte Esterase Large Kain/uL (NEGATIVE) H 05/17/18 15:00 Urine RBC 2 - 5 /hpf (0-2) 05/17/18 15:00 Urine WBC 20 - 25 /hpf (0-6) 05/17/18 15:00 Ur Epithelial Cells None /hpf (0-5) 05/17/18 15:00 Urine Bacteria Mod (NEG) 05/17/18 15:00 - Hospital Course Hospital Course: Upon Admission 88 yo male PMHx Afib on coumadin, hypothyroidism, HLD, CVA with L hand contracture, hemangioma L frontal lobe, LLE DVT s/p IVC filter placed Mar 2016, HTN, and mild dementia BIBA s/p fall at home. Patient reported he was trying to move from one chair to the other and fell forward on his furniture. Patient hit his head and the left side of his chest. He denied any LOC, dizziness, and predromal symptoms. Patient did admit to laying on the floor for approx 1-2 hours before being found by his visiting nurse. Patient reported feeling weak and admitted that the last time he was admitted in November 2017 he was experiencing similar complaints of weakness. Patient also reported his last fall was 1 year ago. Patient reports using a cane at times and a wheelchair. He denied any recent travel/sick contacts. Hospital Course Patient admitted to remote [facility]. Head CT was unremarkable. Patient's CXR revealed L anterior 9th rib nondisplaced fracture. Patient had ultram ordered for pain management and Physical therapy was consulted for unsteady gait and deconditioning. Bowel regimen was in place with colace and miralax. Patient's home coumadin 5mg was continued to reach goal INR 2-3 for history of Afib and DVT and home lisinopril and aricept were continued for HTN and Alzheimer's dementia respectively. Patient had a dirty UA that was +large leuk esterase and patient was started on Rocephin. ID was consulted who adjusted abx to Cefepime. Patient had an elevated PSA 4.8. Sensitivities grew Proteus sensitive to Cipro. Patient encouraged to work with PT/OT who recommended [facility]. Patient was amenable to this. On day of discharged patient was medically optimized for dischagre to [facility]. Upon Discharge Patient was discharged to the subacute rehab facility [facility] Upon discharge home medications were continued as prescribed. Patient was also discharged on antibiotics for a urinary tract infection: -Ciprofloxacin 500mg po daily for 3 days Disp#3 Patient to continue to have INR checks and physical therapy to improve gait and conditioning. Patient advised to follow up with primary care doctor Dr. Tineo 5-7 days after discharge from [facility]. If symptoms returned patient advised to visit nearest Emergency Room Department. Instructions discussed in detail with patient who understood and agreed. Please note this is a discharge summary. For full hospital course please refer to EMR. Discharge Exam - Head Exam Head Exam: ATRAUMATIC, NORMAL INSPECTION, NORMOCEPHALIC - Eye Exam Eye Exam: EOMI, Normal appearance. absent: Conjunctival injection, Scleral icterus - ENT Exam ENT Exam: Mucous Membranes Moist - Neck Exam Neck exam: Full Rom - Respiratory Exam Respiratory Exam: Clear to PA & Lateral, NORMAL BREATHING PATTERN, UNREMARKABLE. absent: Accessory Muscle Use, Rales, Rhonchi, Wheezes, Respiratory Distress - Cardiovascular Exam Cardiovascular Exam: +S1, +S2. absent: Systolic Murmur Additional comments: L anterior chest wall tender to palpation close to 9th rib - GI/Abdominal Exam GI & Abdominal Exam: Normal Bowel Sounds, Soft. absent: Firm, Guarding, Rigid, Tenderness - Rectal Exam Rectal Exam: Deferred - Extremities Exam Extremities exam: normal capillary refill, normal inspection, pedal pulses present - Neurological Exam Neurological exam: Alert, Oriented x3 - Psychiatric Exam Psychiatric exam: Normal Affect, Normal Mood - Skin Skin Exam: Dry, Intact, Normal Color, Warm Discharge Plan - Discharge Medications Prescriptions: Cephalexin [cephalexin] 300 mg PO Q8 21 Days cap - Follow Up Plan Condition: FAIR Disposition: REHAB FACILITY/REHAB UNIT Instructions: Syncope (DC), Syncope (GEN) Additional Instructions: You are being discharged to the subacute rehab facility [facility] Upon discharge please continue to take home medications as prescribed. You are also being discharged on antibiotics for a urinary tract infection: -Keflex 300mg po q8 for 21 days (3 weeks total) You will continue to have INR checks and physical therapy to improve your gait and conditioning. Please follow up with your primary care doctor Dr. Tineo 5-7 days after discharge from [facility]. If symptoms return please visit your nearest Emergency Room Department. Referrals: Jefry Tineo MD [Staff Provider] - <Andrey Valdez - Last Filed: 05/20/18 16:44> Provider - Provider Date of Admission: 05/16/18 18:36 Attending physician: Andrey Valdez MD Consults: 05/16/18 03:57 Social Work Referral Routine Comment: Carleen score of 12 Physician Instructions: Reason For Exam: Carleen score of 12 05/16/18 08:32 Informatics Developer [Case Management Referral] Routine Comment: Physician Instructions: Reason For Exam: discharge to [facility] when medically optimized Reason for Referral: Discharge Planning 05/19/18 10:34 Consult [Physician Consult] Routine Comment: Consulting Provider: Ranulfo Blanchard Consulting Physician: Ranulfo Blanchard Reason for Consult: UTI, recurrent 05/19/18 13:23 Wound Care [Nursing Referral for Wound Care] Routine Comment: Physician Instructions: Reason For Exam: redness on backside Hospital Course - Lab Results Lab Results: Micro Results 05/19/18 14:45 Blood Blood Culture - Preliminary NO GROWTH AFTER 24 HOURS 05/19/18 14:20 Blood Blood Culture - Preliminary NO GROWTH AFTER 24 HOURS 05/18/18 06:15 Urine,Clean Catch Urine Culture - Final Proteus Mirabilis Most Recent Lab Values WBC 4.7 10^3/uL (4.5-11.0) 05/20/18 08:00 RBC 4.08 10^6/uL (3.5-6.1) 05/20/18 08:00 Hgb 12.5 g/dL (14.0-18.0) L 05/20/18 08:00 Hct 37.2 % (42.0-52.0) L 05/20/18 08:00 MCV 91.2 fl (80.0-105.0) 05/20/18 08:00 MCH 30.6 pg (25.0-35.0) 05/20/18 08:00 MCHC 33.6 g/dl (31.0-37.0) 05/20/18 08:00 RDW 13.3 % (11.5-14.5) 05/20/18 08:00 Plt Count 156 10^3/uL (120.0-450.0) 05/20/18 08:00 MPV 8.7 fl (7.0-11.0) 05/20/18 08:00 Gran % 58.2 % (50.0-68.0) 05/20/18 08:00 Lymph % (Auto) 27.7 % (22.0-35.0) 05/20/18 08:00 Rogers % (Auto) 10.3 % (1.0-6.0) H 05/20/18 08:00 Eos % (Auto) 3.6 % (1.5-5.0) 05/20/18 08:00 Baso % (Auto) 0.2 % (0.0-3.0) 05/20/18 08:00 Gran # 2.71 (1.4-6.5) 05/20/18 08:00 Lymph # (Auto) 1.3 (1.2-3.4) 05/20/18 08:00 Rogers # (Auto) 0.5 (0.1-0.6) 05/20/18 08:00 Eos # (Auto) 0.2 (0.0-0.7) 05/20/18 08:00 Baso # (Auto) 0.01 K/mm3 (0.0-2.0) 05/20/18 08:00 PT 29.3 SECONDS (9.4-12.5) H 05/20/18 08:00 INR 2.50 05/20/18 08:00 APTT 63.9 Seconds (25.1-36.5) H 05/20/18 08:00 Sodium 136 mmol/L (132-148) 05/20/18 08:00 Potassium 3.8 mmol/L (3.6-5.0) 05/20/18 08:00 Chloride 105 mmol/L (98-107) 05/20/18 08:00 Carbon Dioxide 27 mmol/L (21-33) 05/20/18 08:00 Anion Gap 8 (10-20) L 05/20/18 08:00 BUN 17 mg/dL (7-21) 05/20/18 08:00 Creatinine 0.7 mg/dl (0.8-1.5) L 05/20/18 08:00 Est GFR ( Amer) > 60 05/20/18 08:00 Est GFR (Non-Af Amer) > 60 05/20/18 08:00 Random Glucose 103 mg/dL (70-110) 05/20/18 08:00 Calcium 8.5 mg/dL (8.4-10.5) 05/20/18 08:00 Phosphorus 3.1 mg/dL (2.5-4.5) 05/20/18 08:00 Magnesium 2.1 mg/dL (1.7-2.2) 05/20/18 08:00 Total Bilirubin 0.6 mg/dL (0.2-1.3) 05/20/18 08:00 AST 25 U/L (17-59) 05/20/18 08:00 ALT 31 U/L (7-56) 05/20/18 08:00 Alkaline Phosphatase 64 U/L (38-126) 05/20/18 08:00 Lactate Dehydrogenase 383 U/L (333-699) 05/15/18 19:57 Total Creatine Kinase 43 U/L (35-230) 05/16/18 06:50 Troponin I 0.03 ng/mL 05/16/18 06:50 Total Protein 6.6 g/dL (5.8-8.3) 05/20/18 08:00 Albumin 3.2 g/dL (3.0-4.8) 05/20/18 08:00 Globulin 3.4 gm/dL 05/20/18 08:00 Albumin/Globulin Ratio 1.0 (1.1-1.8) L 05/20/18 08:00 Triglycerides 55 mg/dL (35-160) 05/16/18 06:50 Cholesterol 111 mg/dL (130-200) L 05/16/18 06:50 LDL Cholesterol Direct 69 mg/dL (0-129) 05/16/18 06:50 HDL Cholesterol 35 mg/dL (29-60) 05/16/18 06:50 Prostate Specific Ag 4.8 ng/mL (0.00-2.5) H 05/19/18 07:00 Free T4 1.30 ng/dL (0.78-2.19) 05/16/18 06:50 TSH 3rd Generation 2.66 mIU/mL (0.46-4.68) 05/16/18 06:50 Urine Color Yellow (YELLOW) 05/17/18 15:00 Urine Appearance Slight-cloudy (CLEAR) 05/17/18 15:00 Urine pH 6.5 (4.7-8.0) 05/17/18 15:00 Ur Specific [place] 1.020 (1.005-1.035) 05/17/18 15:00 Urine Protein 30 mg/dL (<30 mg/dL) H 05/17/18 15:00 Urine Glucose (UA) Negative mg/dL (NEGATIVE) 05/17/18 15:00 Urine Ketones Negative mg/dL (NEGATIVE) 05/17/18 15:00 Urine Blood Moderate (NEGATIVE) H 05/17/18 15:00 Urine Nitrate Negative (NEGATIVE) 05/17/18 15:00 Urine Bilirubin Negative (NEGATIVE) 05/17/18 15:00 Urine Urobilinogen 0.2 E.U./dL (<1 E.U./dL) 05/17/18 15:00 Ur Leukocyte Esterase Large Kain/uL (NEGATIVE) H 05/17/18 15:00 Urine RBC 2 - 5 /hpf (0-2) 05/17/18 15:00 Urine WBC 20 - 25 /hpf (0-6) 05/17/18 15:00 Ur Epithelial Cells None /hpf (0-5) 05/17/18 15:00 Urine Bacteria Mod (NEG) 05/17/18 15:00 - Hospital Course Hospital Course: Pt seen and examined. I reviewed the note of the medical administrative and I agree with the note including the assessment and plan. I reviewed the medications and last labs. Pt with fall and had a L 9th rib fx. His pain is controlled. He had a UTI due to Proteus that was sensitive to many Ab. He will continue with PO Abx on dischrge to [facility]. Reviewed the note of ID regarding Abx usage. The pt is on Coumadin for A fib. He is on Colace and Miralax for his constipation. He has HTN that is controlled on medications. He has been cleared by ID to go to [facility].
[2018-05-20] MEDS: POLYETHYLENE GLYCOL 3350 17 GM/Dose PACKET PO SCH (10:09)
--- NOTE | 2018-05-20 12:47 | CP.PCM.PN ---
Subjective - Date & Time of Evaluation Date of Evaluation: 05/20/18 Time of Evaluation: 09:05 - Subjective Subjective: Afebrile, comfortable, still with dysuria but slowly getting better. Objective - Vital Signs/Intake and Output Vital Signs (last 24 hours): Temp Pulse Resp BP Pulse Ox 97.3 F L 63 20 136/96 H 97 05/19/18 18:00 05/19/18 18:00 05/19/18 18:00 05/19/18 18:00 05/19/18 18:00 Intake and Output: 05/19/18 05/20/18 18:59 06:59 Intake Total 980 Output Total 500 Balance 480 - Medications Medications: Current Medications Acetaminophen (Tylenol 325mg Tab) 650 mg PO Q6H PRN PRN Reason: Fever >100.4 F Last Admin: 05/16/18 12:42 Dose: 650 mg Docusate Sodium (Colace) 100 mg PO BID [facility] Last Admin: 05/19/18 17:45 Dose: 100 mg Donepezil HCl (Aricept) 5 mg PO DAILY [facility] Last Admin: 05/19/18 10:36 Dose: 5 mg Cefepime HCl (Maxipime 1gm) 1 gm in 100 mls @ 100 mls/hr IVPB Q8 [facility]; Protocol Stop: 05/28/18 22:01 Lisinopril (Zestril) 5 mg PO DAILY [facility] Last Admin: 05/19/18 10:35 Dose: 5 mg Polyethylene Glycol (Miralax) 17 gm PO BID [facility] Last Admin: 05/19/18 17:46 Dose: 17 gm Tramadol HCl (Ultram) 50 mg PO TID PRN PRN Reason: Pain, severe (8-10) Last Admin: 05/17/18 17:13 Dose: 50 mg Warfarin Sodium (Coumadin) 5 mg PO 1800 [facility]; Protocol Last Admin: 05/19/18 17:46 Dose: 5 mg - Labs Labs: 05/19/18 07:00 05/19/18 07:00 PT 20.8 SECONDS (9.4-12.5) H 05/17/18 06:00 INR 1.79 05/17/18 06:00 APTT 55.2 Seconds (25.1-36.5) H 05/16/18 06:50 - Constitutional Appears: No Acute Distress, Chronically Ill - Head Exam Head Exam: NORMAL INSPECTION - Respiratory Exam Respiratory Exam: Decreased Breath Sounds - Cardiovascular Exam Cardiovascular Exam: +S1, +S2 - GI/Abdominal Exam GI & Abdominal Exam: Soft. absent: Tenderness Assessment and Plan - Assessment and Plan (Free Text) Plan: Assessment complicated UTI with Proteus R/O prostate disease history of sepsis due to right lower lobe community-acquired pneumonia history of CVA hypothyroidism S/P appendectomy history of umbilical surgery dyslipidemia history of bilateral healthcare-associated pneumonia history of Pneumonia with MSSA in the sputum Plan on Cefepime - can switch to Keflex when ready to be discharged PSA level is slightly elevated - concerned about start of prostate infection - would recommend 3-4 weeks of antibiotics
== END 2018-05-20 16:28 | DRG 206 ==
LOC: ED 17:26 → ERH 18:56 → 3RSO 23:21 → OBSVTOIN 05-16 18:36
PROVIDERS: ADMIT Internal Medicine Nephrology; ATTEND Internal Medicine Nephrology
DX: S22.32XA Fracture of one rib, left side, initial encounter for closed fracture (principal); N39.0 Urinary tract infection, site not specified; I50.9 Heart failure, unspecified; I11.0 Hypertensive heart disease with heart failure; I69.398 Other sequelae of cerebral infarction; M24.542 Contracture, left hand; I25.10 Atherosclerotic heart disease of native coronary artery without angina pectoris; I48.91 Unspecified atrial fibrillation; K59.00 Constipation, unspecified; E03.9 Hypothyroidism, unspecified; B96.4 Proteus (mirabilis) (morganii) as the cause of diseases classified elsewhere; E78.5 Hyperlipidemia, unspecified; G30.9 Alzheimer's disease, unspecified; F02.80 Dementia in other diseases classified elsewhere, unspecified severity, without behavioral disturbance, psychotic disturbance, mood disturbance, and anxiety; R29.6 Repeated falls; W07.XXXA Fall from chair, initial encounter; Z86.718 Personal history of other venous thrombosis and embolism; Z79.01 Long term (current) use of anticoagulants; Z87.891 Personal history of nicotine dependence

== ENCOUNTER 2018-09-02 18:44 | Inpatient (IN) | payer MEDICARE, BC ==
[2018-09-02 18:52] VITALS: BMI 22.3
[2018-09-02] MEDS ORDERED: Sodium Chloride 0.9% 1,000 ML IV STA (19:29)
[2018-09-02 19:31] LABS: VENOUS BLOOD GAS BASE EXCESS -2.3 mmol/L (0.0-2.0); VENOUS BLOOD GAS PO2 66 mm/Hg (30-55); VENOUS BLOOD PH 7.42 (7.32-7.43)
[2018-09-02 19:34] LABS: BASO # 0.01 K/mm3 (0.0-2.0); BASO % 0.1 % (0.0-3.0); EOS # 0.1 (0.0-0.7); HEMOGLOBIN 12.8 g/dL (14.0-18.0); LYMPH # 0.4 (1.2-3.4); LYMPH % 5.2 % (22.0-35.0); MEAN CELL VOLUME 91.8 fl (80.0-105.0); MEAN CORPUSCULAR HEMOGLOBIN 30.8 pg (25.0-35.0); MEAN CORPUSCULAR HGB CONC 33.5 g/dl (31.0-37.0); MEAN PLATELET VOLUME 8.9 fl (7.0-11.0); MONO # 0.1 (0.1-0.6); MONO % 0.6 % (1.0-6.0); PLATELET COUNT 207 10^3/uL (120.0-450.0); RBC 4.16 10^6/uL (3.5-6.1); RED CELL DISTRIBUTION WIDTH 14.3 % (11.5-14.5); WHITE BLOOD COUNT 8.1 10^3/uL (4.5-11.0)
[2018-09-02 19:43] LABS: ALBUMIN 3.8 g/dL (3.0-4.8); ALT/SGPT 17 U/L (7-56); AST/SGOT 23 U/L (17-59); BLOOD UREA NITROGEN 22 mg/dL (7-21); GFR NON-AFRICAN AMERICAN > 60; INR 2.39; PARTIAL THROMBOPLASTIN TIME 66.9 Seconds (26.9-38.3); PROTHROMBIN TIME 26.5 SECONDS (9.4-12.5)
[2018-09-02 19:50] LABS: URINE BILIRUBIN NEGATIVE (NEGATIVE); URINE BLOOD MODERATE (NEGATIVE); URINE GLUCOSE (UA) NEGATIVE (NEGATIVE); URINE LEUKOCYTE ESTERASE LARGE Leu/uL (NEGATIVE); URINE PROTEIN TRACE mg/dL (<30 mg/dL); URINE UROBILINOGEN 0.2 E.U./dL (<1 E.U./dL)
[2018-09-02 19:51] LABS: B-TYPE NATRIURETIC PEPTIDE 1270 pg/mL (0-450)
[2018-09-02 19:53] LABS: URINE APPEARANCE CLOUDY (CLEAR); URINE COLOR YELLOW (YELLOW)
[2018-09-02 19:56] LABS: URINE WBC TNTC /hpf (0-6)
[2018-09-02 19:57] LABS: URINE BACTERIA MANY /hpf
[2018-09-02 19:59] LABS: ARTERIAL BLOOD GAS HCO3 20.6 mmol/L (21-28); ARTERIAL BLOOD GAS HEMOGLOBIN 12.1 g/dL (11.7-17.4); ARTERIAL BLOOD GAS O2 CONTENT 16.8 ML/dl (15-23); ARTERIAL BLOOD GAS O2 SAT 98.7 % (95-98); ARTERIAL BLOOD GAS PCO2 29 mm/Hg (35-45); ARTERIAL BLOOD GAS PH 7.46 (7.35-7.45); ARTERIAL BLOOD GAS TCO2 21.5 mmol.L (22-28)
[2018-09-02 19:59] LABS: BASOPHIL 1 % (0.0-1.0); LYMPHOCYTE 9 % (22.0-35.0); MONOCYTE 1 % (1.0-6.0); NEUTROPHIL 89 % (50.0-70.0)
[2018-09-02] MEDS ORDERED: Albuterol-Ipratrop 3 mg / 0.5 (3 ml) UD IH STA (20:12)
[2018-09-02] MEDS ORDERED: Albuterol-Ipratrop 3 mg / 0.5 (3 ml) UD ONE (20:12)
[2018-09-02] MEDS ORDERED: Vancomycin 1gm in NS 250ml 1 GM/250 ML BAG IVPB STA (20:12)
[2018-09-02] MEDS ORDERED: Piperacill/Tazo 4.5gm in NS 4.5 GM/100 ML BAG IVPB STA (20:12)
--- NOTE | 2018-09-02 20:43 | ED PDOC ---
Arrival/HPI - General Chief Complaint: Shortness Of Breath Time Seen by Provider: 09/02/18 19:17 Historian: Patient, Family - Critical Care Critical Care Minutes: 30 minutes - History of Present Illness Narrative History of Present Illness (Text): 09/02/18 20:36 88 year old male, whose past medical history includes A-fib, CVA with left sided paresis, DVT, hypertension, and dementia, presents to the emergency department for evaluation of fever and chills, today. Patient's son states that he noticed patient developing symptoms earlier today. Patient denies any complaints other than feeling a bit cold. Patient denies any chest pain, shortness of breath, abdominal pain, nausea, vomiting, diarrhea, URI symptoms, or any other complaints. Time/Duration: 24 hours Symptom Onset: Gradual Symptom Course: Unchanged Activities at Onset: Light Context: Home Past Medical History - Provider Review Nursing Documentation Reviewed: Yes - Infectious Disease Hx of Infectious Diseases: None - Tetanus Immunization Tetanus Immunization: Unknown - Cardiac Hx Cardiac Disorders: Yes Hx Cardiac Arrhythmia: Yes (A-Fib) Hx Congestive Heart Failure: Yes Hx Hypertension: Yes - Pulmonary Hx Respiratory Disorders: Yes Hx Pneumonia: Yes - Neurological Hx Neurological Disorder: Yes HX Cerebrovascular Accident: Yes (3 years ago) - HEENT Hx HEENT Disorder: No - Renal Hx Renal Disorder: No - Endocrine/Metabolic Hx Endocrine Disorders: Yes Hx Hypothyroidism: Yes - Hematological/Oncological Hx Blood Disorders: Yes Other/Comment: dvt - Integumentary Hx Dermatological Disorder: No - Musculoskeletal/Rheumatological Hx Musculoskeletal Disorders: Yes Hx Degenerative Joint Disease: Yes Hx Falls: Yes Hx Unsteady Gait: Yes (Wheelchair and uses cane) - Gastrointestinal Hx Gastrointestinal Disorders: No - Genitourinary/Gynecological Hx Genitourinary Disorders: Yes Hx Prostate Problems: Yes - Psychiatric Hx Psychophysiologic Disorder: No Hx Substance Use: No - Surgical History Hx Appendectomy: Yes Other/Comment: tonsillectomy - Anesthesia Hx Anesthesia: Yes Hx Anesthesia Reactions: No Hx Malignant Hyperthermia: No Family/Social History - Physician Review Nursing Documentation Reviewed: Yes Family/Social History: No Known Family HX Smoking Status: Former Smoker Hx Alcohol Use: No Hx Substance Use: No Allergies/Home Meds Allergies/Adverse Reactions: Allergies No Known Allergies Allergy (Verified 09/02/18 19:09) Review of Systems - Physician Review All systems were reviewed & negative as marked: Yes - Review of Systems Constitutional: Fevers, Night Sweats Respiratory: absent: SOB Cardiovascular: absent: Chest Pain Gastrointestinal: absent: Abdominal Pain, Diarrhea, Nausea, Vomiting Genitourinary Male: Normal. absent: Urinary Output Changes Physical Exam Vital Signs Reviewed: Yes Vital Signs Temp Pulse Resp BP Pulse Ox 09/02/18 19:42 18 97 09/02/18 18:53 103.5 F H 125 H 26 H 148/100 H 99 Temperature: Febrile Blood Pressure: Hypertensive Pulse: Tachycardic Respiratory Rate: Tachypneic Appearance: Positive for: Well-Appearing, Non-Toxic. No: Comfortable (Shaking with chills) Pain Distress: None Mental Status: Positive for: Alert and Oriented X 3 - Systems Exam Head: Present: Atraumatic, Normocephalic Pupils: Present: PERRL Extroacular Muscles: Present: EOMI Conjunctiva: Present: Normal Mouth: Present: Dry (Slightly Dry MM). No: Moist Mucous Membranes Neck: Present: Normal Range of Motion Respiratory/Chest: Present: Rhonchi (Few scattered rhonchi bilaterally). No: Respiratory Distress, Accessory Muscle Use Cardiovascular: Present: Normal S1, S2, Tachycardic. No: Murmurs Abdomen: Present: Normal Bowel Sounds. No: Tenderness, Distention, Peritoneal Signs Back: Present: Normal Inspection Upper Extremity: Present: Normal Inspection. No: Cyanosis, Edema Lower Extremity: Present: Normal Inspection. No: Edema Neurological: Present: Speech Normal. No: Motor Func Grossly Intact (Left sided hemiparesis ) Skin: Present: Warm, Dry, Normal Color. No: Rashes Psychiatric: Present: Alert, Oriented x 3, Normal Insight, Normal Concentration Medical Decision Making ED Course and Treatment: 09/02/18 20:49 Impression: 88 year old male presents with fever and chills. Plan: -- VBG -- EKG -- Cardiac Iso -- Chest X-ray -- Duoneb -- Tylenol -- Vancomycin -- Zosyn -- Blood Urine Cultures -- Reassess and disposition Prior Visits: Notes and results from previous visits were reviewed. Progress Notes: EKG reviewed by me, shows: Sinus tachycardia @ 117bpm Occasional PVC LBBB 09/02/18 20:50 Chest X-ray reviewed by me, shows: Slight increase interstitial markings Linear atelectasis 09/02/18 21:[address] Valdez who accepts patient to his service. - Lab Interpretations Lab Results: pCO2 29 mm/Hg (35-45) L 09/02/18 19:50 pO2 167.0 mm/Hg (80-100) H 09/02/18 19:50 HCO3 20.6 mmol/L (21-28) L 09/02/18 19:50 ABG pH 7.46 (7.35-7.45) H 09/02/18 19:50 ABG Total CO2 21.5 mmol.L (22-28) L 09/02/18 19:50 ABG O2 Saturation 98.7 % (95-98) H 09/02/18 19:50 ABG O2 Content 16.8 ML/dl (15-23) 09/02/18 19:50 ABG Base Excess -2.2 mmol/L (-2.0-3.0) L 09/02/18 19:50 ABG Hemoglobin 12.1 g/dL (11.7-17.4) 09/02/18 19:50 ABG Carboxyhemoglobin 1.1 % (0.5-1.5) 09/02/18 19:50 POC ABG HHb (Measured) 1.3 % (0-5) 09/02/18 19:50 ABG Methemoglobin 0.9 % (0.0-3.0) 09/02/18 19:50 ABG O2 Capacity 17.0 mL/dl (16-24) 09/02/18 19:50 VBG pH 7.42 (7.32-7.43) 09/02/18 19:25 VBG pCO2 33.0 (40-60) L 09/02/18 19:25 VBG HCO3 21.4 mmol/l (21-28) 09/02/18 19:25 VBG Total CO2 22.4 mmol.L (22-28) 09/02/18 19:25 VBG O2 Sat (Calc) 95.8 % (40-65) H 09/02/18 19:25 VBG Base Excess -2.3 mmol/L (0.0-2.0) L 09/02/18 19:25 VBG Potassium 4.1 mmol/L (3.6-5.2) 09/02/18 19:25 Hgb O2 Saturation 96.6 % (95.0-98.0) 09/02/18 19:50 Sodium 139.0 mmol/L (132-148) 09/02/18 19:25 Chloride 105.0 mmol/L (98-107) 09/02/18 19:25 Glucose 123 mg/dl (75-110) H 09/02/18 19:25 Lactate 4.4 mmol/L (0.7-2.1) H* 09/02/18 19:25 FiO2 100.0 % 09/02/18 19:50 Crit Value Called To Iqsa 09/02/18 19:25 Crit Value Called By [facility] 09/02/18 19:25 Blood Gas Notified Time 192909/02/18 19:25 PT 26.5 SECONDS (9.4-12.5) H 09/02/18 19:05 INR 2.39 09/02/18 19:05 APTT 66.9 Seconds (26.9-38.3) H 09/02/18 19:05 NT-Pro-B Natriuret Pep 1270 pg/mL (0-450) H 09/02/18 19:05 Total Bilirubin 0.8 mg/dL (0.2-1.3) 09/02/18 19:05 AST 23 U/L (17-59) 09/02/18 19:05 ALT 17 U/L (7-56) 09/02/18 19:05 Alkaline Phosphatase 88 U/L (38-126) 09/02/18 19:05 Total Protein 7.6 g/dL (5.8-8.3) 09/02/18 19:05 Albumin 3.8 g/dL (3.0-4.8) 09/02/18 19:05 Globulin 3.8 gm/dL 09/02/18 19:05 Albumin/Globulin Ratio 1.0 (1.1-1.8) L 09/02/18 19:05 Urine Color Yellow (YELLOW) 09/02/18 19:20 Urine Appearance Cloudy (CLEAR) 09/02/18 19:20 Urine pH 7.0 (4.7-8.0) 09/02/18 19:20 Ur Specific [place] 1.020 (1.005-1.035) 03/25/19 19:20 Urine Protein Trace mg/dL (<30 mg/dL) H 09/02/18 19:20 Urine Glucose (UA) Negative mg/dL (NEGATIVE) 09/02/18 19:20 Urine Ketones Negative mg/dL (NEGATIVE) 09/02/18 19:20 Urine Blood Moderate (NEGATIVE) H 09/02/18 19:20 Urine Nitrate Positive (NEGATIVE) H 09/02/18 19:20 Urine Bilirubin Negative (NEGATIVE) 09/02/18 19:20 Urine Urobilinogen 0.2 E.U./dL (<1 E.U./dL) 09/02/18 19:20 Ur Leukocyte Esterase Large Kain/uL (NEGATIVE) H 09/02/18 19:20 Urine RBC 2 - 5 /hpf (0-2) H 09/02/18 19:20 Urine WBC Tntc /hpf (0-6) H 09/02/18 19:20 Ur Epithelial Cells 1 - 3 /hpf (0-5) 09/02/18 19:20 Urine Bacteria Many /hpf (NONE) 09/02/18 19:20 - RAD Interpretation Radiology Orders: 09/02/18 19:19 CHEST PORTABLE [RAD] Stat - Medication Orders Current Medication Orders: Vancomycin HCl (Vancomycin 1gm) 1 gm in 250 mls @ 167 mls/hr IVPB STAT STA; Protocol Stop: 09/02/18 21:41 Piperacillin Sod/Tazobactam Sod (Zosyn 4.5 Gm In Ns 100ml) 4.5 gm in 100 mls @ 200 mls/hr IVPB STAT STA; Protocol Stop: 09/02/18 20:41 Last Admin: 09/02/18 20:19 Dose: 200 mls/hr eMAR Start Stop Document 09/02/18 20:19 CNR (Rec: 09/02/18 20:19 CNR [facility] [id number]) Intravenous Solution Start Date 09/02/18 Start Time 20:19 End Date 09/02/18 End time 20:49 Total Infusion Time 30 Discontinued Medications Acetaminophen (Tylenol 650 Mg Supp) 650 mg RC STAT STA Stop: 09/02/18 20:01 Last Admin: 09/02/18 19:29 Dose: 650 mg Albuterol/Ipratropium (Duoneb 3 Mg/0.5 Mg (3 Ml) Ud) 3 ml IH ONCE STA Stop: 09/02/18 20:13 Last Admin: 09/02/18 20:12 Dose: 3 ml Sodium Chloride (Sodium Chloride 0.9%) 1,000 mls @ 999 mls/hr IV .Q1H1M STA Stop: 09/02/18 20:29 Last Admin: 09/02/18 19:38 Dose: 999 mls/hr eMAR Start Stop Document 09/02/18 19:38 CNR (Rec: 09/02/18 19:38 CNR [facility] [id number]) Intravenous Solution Start Date 09/02/18 Start Time 19:08 End Date 09/02/18 End time 19:38 Total Infusion Time 30 - Scribe Statement The provider has reviewed the documentation as recorded by the Calin Fleming Provider Scribe Attestation: All medical record entries made by the Scribe were at my direction and personally dictated by me. I have reviewed the chart and agree that the record accurately reflects my personal performance of the history, physical exam, medical decision making, and the department course for this patient. I have also personally directed, reviewed, and agree with the discharge instructions and disposition. Disposition/Present on Arrival - Present on Arrival Any Indicators Present on Arrival: No History of DVT/PE: Yes History of Uncontrolled Diabetes: No Urinary Catheter: No History of Decub. Ulcer: No History Surgical Site Infection Following: None - Disposition Have Diagnosis and Disposition been Completed?: Yes Diagnosis: Pneumonia, Sepsis Disposition: HOSPITALIZED Disposition Time: 20:55 Patient Plan: Admission Condition: STABLE
[2018-09-02 20:59] LABS: TROPONIN I 0.03 ng/mL
[2018-09-02 22:51] LABS: VENOUS BLOOD GAS BASE EXCESS 0.3 mmol/L (0.0-2.0); VENOUS BLOOD GAS PO2 83 mm/Hg (30-55); VENOUS BLOOD PH 7.47 (7.32-7.43)
--- NOTE | 2018-09-03 01:20 | PCM.SEPTIC ---
Sepsis Progress Note - Reassessment Type Date of Evaluation: 09/03/18 Time of Evaluation: 22:30 Reassessment Type: Non-invasive reassessment - Non Invasive Reassessment Were the most recent vital sign reviewed: Yes Vital Sign (Latest): Temp Pulse Resp BP Pulse Ox 102.8 F H 77 20 122/59 L 97 09/02/18 21:06 09/02/18 22:13 09/02/18 23:33 09/02/18 22:13 09/02/18 22:13 Cardiovascular: Yes: Regular Rate, Rhythm, Chest Non Tender. No: Murmur, Tachycardia Respiratory: Yes: Normal Breath Sounds. No: Accessory Muscle Use Capillary Refill: Normal (Less than 2 sec) Skin: Warm, Dry, Pale
--- NOTE | 2018-09-03 06:53 | CP.PCM.HP ---
<Ilana Wright - Last Filed: 09/03/18 14:10> History of Present Illness - History of Present Illness History of Present Illness: IM Resident H&P for Dr. Valdez's service CC: katalina Patient is an 88 y/o with PMHx of atrial fibrillation on Coumadin, CVA with left sided paresis, DVT, htn, and dementia brought in by his son due to chills. As per patient, he was shaking, and experiencing chills, thus his sons decided to bring him in. Patient states the day prior to yesterday he was doing well. Denies dysurea, hematuria, denies cough. States he's feeling cold. Denies sob, no chest pain. Patient was noted to have fever with temp of 103.5 in the ED. This morning patient states he's feeling better. Admits to feeling cold, no sob, or cp. PMHx: Afib on coumadin, HLD, CVA with L hand contracture, hemangioma L frontal lobe, LLE DVT s/p IVC filter, HTN, amd mild dementia PSurgHx: appendectomy and tonsillectomy, IVC filter in 2016. FMHx: non contributory Social: former tobacco, denies alcohol or illicit drug use. Home Meds: As per chart ALL: NKDA Present on Admission - Present on Admission Any Indicators Present on Admission: No History of DVT/PE: No History of Uncontrolled Diabetes: No Urinary Catheter: No Decubitus Ulcer Present: No History Surgical Site Infection Following: None Review of Systems - Constitutional Constitutional: Chills, Fever. absent: Fatigue, Headache, Lethargy, Malaise, Night Sweats, Weight Loss, Weakness - EENT Eyes: absent: Blurred Vision, Change in Vision Ears: absent: Ear Discharge, Dizziness Nose/Mouth/Throat: absent: Nasal Congestion - Cardiovascular Cardiovascular: absent: Chest Pain, Chest Pain at Rest, Chest Pain with Activity, Diaphoresis, Dyspnea, Edema, Leg Edema, Leg Ulcers, Orthopnea, Palpitations, Slow Heart Rate, Syncope - Respiratory Respiratory: absent: Dyspnea, Hemoptysis, Dyspnea on Exertion, Wheezing, Snoring, Stridor, Pain on Inspiration, Chest Congestion - Gastrointestinal Gastrointestinal: absent: Abdominal Pain, Belching, Bloating, Change in Bowel Habits, Constipation, Diarrhea, Dyspepsia, Dysphagia, Heartburn, Melena, Nausea, Vomiting - Genitourinary Genitourinary: absent: Change in Urinary Stream, Difficulty Urinating, Dysuria, Hematuria, Pyuria, Nocturia - Musculoskeletal Musculoskeletal: Arthralgias, Joint Swelling, Stiffness. absent: Muscle Cramps - Integumentary Integumentary: absent: Erythema, Skin Ulcer, Sores, Wounds - Neurological Neurological: absent: Abnormal Gait, Abnormal Hearing, Abnormal Movements, Confusion, Syncope, Weakness - Psychiatric Psychiatric: absent: Anxiety, Confusion, Depression - Endocrine Endocrine: absent: Fatigue, Flushing, Heat Intolorance, Increase in Ring/Shoe/Hat Size, Palpitations, Polydipsia, Polyphagia, Polyuria - Hematologic/Lymphatic Hematologic: absent: Easy Bleeding, Easy Bruising, Lymphadenopathy Past Patient History - Infectious Disease Hx of Infectious Diseases: None - Tetanus Immunizations Tetanus Immunization: Unknown - Past Medical History & Family History Past Medical History?: Yes - Past Social History Smoking Status: Never Smoked Alcohol: None Drugs: Denies Home Situation {Lives}: With Family - CARDIAC Hx Cardiac Disorders: Yes Hx Congestive Heart Failure: Yes Hx Hypertension: Yes Hx Peripheral Vascular Disease: Yes - PULMONARY Hx Respiratory Disorders: No - NEUROLOGICAL Hx Neurological Disorder: Yes HX Cerebrovascular Accident: Yes - HEENT Hx HEENT Problems: No - RENAL Hx Chronic Kidney Disease: No - ENDOCRINE/METABOLIC Hx Endocrine Disorders: Yes Hx Diabetes Mellitus Type 1: Yes - HEMATOLOGICAL/ONCOLOGICAL Hx Blood Disorders: No - INTEGUMENTARY Hx Dermatological Problems: No - MUSCULOSKELETAL/RHEUMATOLOGICAL Hx Musculoskeletal Disorders: Yes Hx Falls: Yes - GASTROINTESTINAL Hx Gastrointestinal Disorders: No - GENITOURINARY/GYNECOLOGICAL Hx Genitourinary Disorders: No - PSYCHIATRIC Hx Psychophysiologic Disorder: No - SURGICAL HISTORY Hx Surgeries: No - ANESTHESIA Hx Anesthesia: Yes Hx Anesthesia Reactions: No Hx Malignant Hyperthermia: No Meds Allergies/Adverse Reactions: Allergies Allergy/AdvReac Type Severity Reaction Status Date / Time No Known Allergies Allergy Verified 09/02/18 19:09 Physical Exam - Constitutional Appears: No Acute Distress, Chronically Ill - Head Exam Head Exam: ATRAUMATIC, NORMAL INSPECTION, NORMOCEPHALIC - Eye Exam Eye Exam: EOMI, Normal appearance, PERRL. absent: Scleral icterus Pupil Exam: NORMAL ACCOMODATION - ENT Exam ENT Exam: Mucous Membranes Moist - Neck Exam Neck exam: Positive for: Normal Inspection. Negative for: Lymphadenopathy, Me ningismus, Tenderness, Thyromegaly - Respiratory Exam Respiratory Exam: Clear to Auscultation Bilateral, NORMAL BREATHING PATTERN. absent: Decreased Breath Sounds, Prolonged Expiratory Phase, Rales, Rhonchi, Wheezes, Respiratory Distress, Stridor - Cardiovascular Exam Cardiovascular Exam: Irregular Rhythm, RRR, +S1, +S2. absent: Bradycardia, Tachycardia, Clicks, Diastolic murmur, Gallop, JVD, Rubs, Systolic Murmur - GI/Abdominal Exam GI & Abdominal Exam: Normal Bowel Sounds, Soft. absent: Diminished Bowel Sounds, Distended, Firm, Guarding, Organomegaly, Pulsatile Mass, Rebound, Rigid, Tenderness - Extremities Exam Extremities exam: Positive for: normal inspection. Negative for: pedal edema, tenderness - Back Exam Back exam: NORMAL INSPECTION - Neurological Exam Neurological exam: Alert, Oriented x3 - Psychiatric Exam Psychiatric exam: Normal Affect, Normal Mood - Skin Skin Exam: Dry, Intact, Normal Color, Warm Results - Vital Signs Recent Vital Signs: Last Vital Signs Temp 98.2 F 09/02/18 23:45 Pulse 76 09/03/18 02:00 Resp 20 09/02/18 23:45 BP 106/63 09/02/18 23:45 Pulse Ox 97 09/02/18 22:13 - Labs Result Diagrams: 09/03/18 07:55 09/03/18 07:55 Labs: Laboratory Results - last 24 hr 09/02/18 09/02/18 09/02/18 19:05 19:05 19:05 WBC 8.1 D RBC 4.16 Hgb 12.8 L Hct 38.2 L MCV 91.8 MCH 30.8 MCHC 33.5 RDW 14.3 Plt Count 207 MPV 8.9 Neut % (Auto) 93.1 H Lymph % (Auto) 5.2 L Rooks % (Auto) 0.6 L Eos % (Auto) 1.0 L Baso % (Auto) 0.1 Lymph # (Auto) 0.4 L Rooks # (Auto) 0.1 Eos # (Auto) 0.1 Baso # (Auto) 0.01 Absolute Neuts (auto) 7.50 H Neutrophils % (Manual) 89 H Lymphocytes % (Manual) 9 L Monocytes % (Manual) 1 Basophils % (Manual) 1 PT 26.5 H INR 2.39 APTT 66.9 H pCO2 pO2 HCO3 ABG pH ABG Total CO2 ABG O2 Saturation ABG O2 Content ABG Base Excess ABG Hemoglobin ABG Carboxyhemoglobin POC ABG HHb (Measured) ABG Methemoglobin ABG O2 Capacity VBG pH VBG pCO2 VBG HCO3 VBG Total CO2 VBG O2 Sat (Calc) VBG Base Excess VBG Potassium Hgb O2 Saturation Glucose Lactate FiO2 Crit Value Called To Crit Value Called By Blood Gas Notified Time Sodium 138 Potassium 3.9 Chloride 105 Carbon Dioxide 22 Anion Gap 15 BUN 22 H Creatinine 1.0 Est GFR ( Amer) > 60 Est GFR (Non-Af Amer) > 60 Random Glucose 117 H Calcium 9.0 Phosphorus 3.8 Magnesium 1.9 Total Bilirubin 0.8 AST 23 ALT 17 Alkaline Phosphatase 88 Lactate Dehydrogenase Total Creatine Kinase Troponin I NT-Pro-B Natriuret Pep 1270 H Total Protein 7.6 Albumin 3.8 Globulin 3.8 Albumin/Globulin Ratio 1.0 L Venous Blood Potassium Urine Color Urine Appearance Urine pH Ur Specific [place] Urine Protein Urine Glucose (UA) Urine Ketones Urine Blood Urine Nitrate Urine Bilirubin Urine Urobilinogen Ur Leukocyte Esterase Urine RBC Urine WBC Ur Epithelial Cells Urine Bacteria Influenza Typ A,B (EIA) 09/02/18 09/02/18 09/02/18 19:20 19:25 19:50 WBC RBC Hgb Hct MCV MCH MCHC RDW Plt Count MPV Neut % (Auto) Lymph % (Auto) Rooks % (Auto) Eos % (Auto) Baso % (Auto) Lymph # (Auto) Rooks # (Auto) Eos # (Auto) Baso # (Auto) Absolute Neuts (auto) Neutrophils % (Manual) Lymphocytes % (Manual) Monocytes % (Manual) Basophils % (Manual) PT INR APTT pCO2 29 L pO2 66 H 167.0 H HCO3 20.6 L ABG pH 7.46 H ABG Total CO2 21.5 L ABG O2 Saturation 98.7 H ABG O2 Content 16.8 ABG Base Excess -2.2 L ABG Hemoglobin 12.1 ABG Carboxyhemoglobin 1.1 POC ABG HHb (Measured) 1.3 ABG Methemoglobin 0.9 ABG O2 Capacity 17.0 VBG pH 7.42 VBG pCO2 33.0 L VBG HCO3 21.4 VBG Total CO2 22.4 VBG O2 Sat (Calc) 95.8 H VBG Base Excess -2.3 L VBG Potassium 4.1 Hgb O2 Saturation 96.6 Glucose 123 H Lactate 4.4 H* FiO2 21.0 100.0 Crit Value Called To [facility] Crit Value Called By [facility] Blood Gas Notified Time 1929 Sodium 139.0 Potassium Chloride 105.0 Carbon Dioxide Anion Gap BUN Creatinine Est GFR ( Amer) Est GFR (Non-Af Amer) Random Glucose Calcium Phosphorus Magnesium Total Bilirubin AST ALT Alkaline Phosphatase Lactate Dehydrogenase Total Creatine Kinase Troponin I NT-Pro-B Natriuret Pep Total Protein Albumin Globulin Albumin/Globulin Ratio Venous Blood Potassium 4.1 Urine Color Yellow Urine Appearance Cloudy Urine pH 7.0 Ur Specific [place] 1.020 Urine Protein Trace H Urine Glucose (UA) Negative Urine Ketones Negative Urine Blood Moderate H Urine Nitrate Positive H Urine Bilirubin Negative Urine Urobilinogen 0.2 Ur Leukocyte Esterase Large H Urine RBC 2 - 5 H Urine WBC Tntc H Ur Epithelial Cells 1 - 3 Urine Bacteria Many Influenza Typ A,B (EIA) 09/02/18 09/02/18 09/02/18 20:39 21:55 22:46 WBC RBC Hgb Hct MCV MCH MCHC RDW Plt Count MPV Neut % (Auto) Lymph % (Auto) Rooks % (Auto) Eos % (Auto) Baso % (Auto) Lymph # (Auto) Rooks # (Auto) Eos # (Auto) Baso # (Auto) Absolute Neuts (auto) Neutrophils % (Manual) Lymphocytes % (Manual) Monocytes % (Manual) Basophils % (Manual) PT INR APTT pCO2 pO2 83 H HCO3 ABG pH ABG Total CO2 ABG O2 Saturation ABG O2 Content ABG Base Excess ABG Hemoglobin ABG Carboxyhemoglobin POC ABG HHb (Measured) ABG Methemoglobin ABG O2 Capacity VBG pH 7.47 H VBG pCO2 32.0 L VBG HCO3 23.3 VBG Total CO2 24.3 VBG O2 Sat (Calc) 97.8 H VBG Base Excess 0.3 VBG Potassium 3.2 L Hgb O2 Saturation Glucose 124 H Lactate 1.0 FiO2 21.0 Crit Value Called To Crit Value Called By Blood Gas Notified Time Sodium 140.0 Potassium Chloride 110.0 H Carbon Dioxide Anion Gap BUN Creatinine Est GFR ( Amer) Est GFR (Non-Af Amer) Random Glucose Calcium Phosphorus Magnesium Total Bilirubin AST ALT Alkaline Phosphatase Lactate Dehydrogenase 417 Total Creatine Kinase 36 Troponin I 0.03 NT-Pro-B Natriuret Pep Total Protein Albumin Globulin Albumin/Globulin Ratio Venous Blood Potassium 3.2 L Urine Color Urine Appearance Urine pH Ur Specific [place] Urine Protein Urine Glucose (UA) Urine Ketones Urine Blood Urine Nitrate Urine Bilirubin Urine Urobilinogen Ur Leukocyte Esterase Urine RBC Urine WBC Ur Epithelial Cells Urine Bacteria Influenza Typ A,B (EIA) Negative for flu a/b Assessment & Plan - Assessment and Plan (Free Text) Assessment: 1- Sepsis with uti as the possible source 2- Respiratory alkalosis with lactic acidosis 3- Chronic normocytic anemia 4- h/o DVT s/p IVC in 2016 5- Atrial fibrillation- on Coumadin 6- h/o htn 7- Mild Dementia 8- h/o CVA with left hand contraction Plan: Patient presented with temp of 103.7, sepsis work up revealed lactic acidosis, patient received only a litter of fluid, Rocephin and flagyl in the ED. Lactic acid trended down. Chest -ray was normal, ua with uti, urine culture and blood cultures were sent. Will resume NS@75 cc/hr. Procal, influenza, and urine legionella sent. ID is following. Prob bnp was elevated at 1270 with normal troponin, however patient doesnt appear to be in fluid overload. INR of 2.39, will continue with coumadin 5 mg. Will hold lisinopril due to bp being on the lower side. Anemia work up sent. Will monitor hgb. Will resume Aricept for dementia. PT eval ordered. Patient seen, examined and case discussed with Dr. Valdez. - Date & Time Date: 09/03/18 Time: 11:00 <Andrey Valdez - Last Filed: 09/03/18 14:30> Results - Vital Signs Recent Vital Signs: Last Vital Signs Temp 98.5 F 09/03/18 12:00 Pulse 74 09/03/18 12:00 Resp 20 09/03/18 12:00 BP 124/71 09/03/18 12:00 Pulse Ox 97 09/02/18 22:13 - Labs Result Diagrams: 09/03/18 07:55 09/03/18 07:55 Labs: Laboratory Results - last 24 hr 09/02/18 09/02/18 09/02/18 19:05 19:05 19:05 WBC 8.1 D RBC 4.16 Hgb 12.8 L Hct 38.2 L MCV 91.8 MCH 30.8 MCHC 33.5 RDW 14.3 Plt Count 207 MPV 8.9 Neut % (Auto) 93.1 H Lymph % (Auto) 5.2 L [place]ooks % (Auto) 0.6 L Eos % (Auto) 1.0 L Baso % (Auto) 0.1 Lymph # (Auto) 0.4 L [place] # (Auto) 0.1 Eos # (Auto) 0.1 Baso # (Auto) 0.01 Absolute Neuts (auto) 7.50 H Neutrophils % (Manual) 89 H Lymphocytes % (Manual) 9 L Monocytes % (Manual) 1 Basophils % (Manual) 1 PT 26.5 H INR 2.39 APTT 66.9 H pCO2 pO2 HCO3 ABG pH ABG Total CO2 ABG O2 Saturation ABG O2 Content ABG Base Excess ABG Hemoglobin ABG Carboxyhemoglobin POC ABG HHb (Measured) ABG Methemoglobin ABG O2 Capacity VBG pH VBG pCO2 VBG HCO3 VBG Total CO2 VBG O2 Sat (Calc) VBG Base Excess VBG Potassium Hgb O2 Saturation Glucose Lactate FiO2 Crit Value Called To Crit Value Called By Blood Gas Notified Time Sodium 138 Potassium 3.9 Chloride 105 Carbon Dioxide 22 Anion Gap 15 BUN 22 H Creatinine 1.0 Est GFR ( Amer) > 60 Est GFR (Non-Af Amer) > 60 Random Glucose 117 H Calcium 9.0 Phosphorus 3.8 Magnesium 1.9 Total Bilirubin 0.8 AST 23 ALT 17 Alkaline Phosphatase 88 Lactate Dehydrogenase Total Creatine Kinase Troponin I NT-Pro-B Natriuret Pep 1270 H Total Protein 7.6 Albumin 3.8 Globulin 3.8 Albumin/Globulin Ratio 1.0 L Procalcitonin Venous Blood Potassium Urine Color Urine Appearance Urine pH Ur Specific [place] Urine Protein Urine Glucose (UA) Urine Ketones Urine Blood Urine Nitrate Urine Bilirubin Urine Urobilinogen Ur Leukocyte Esterase Urine RBC Urine WBC Ur Epithelial Cells Urine Bacteria Influenza Typ A,B (EIA) 09/02/18 09/02/18 09/02/18 19:20 19:25 19:50 WBC RBC Hgb Hct MCV MCH MCHC RDW Plt Count MPV Neut % (Auto) Lymph % (Auto) [place] % (Auto) Eos % (Auto) Baso % (Auto) Lymph # (Auto) [place] # (Auto) Eos # (Auto) Baso # (Auto) Absolute Neuts (auto) Neutrophils % (Manual) Lymphocytes % (Manual) Monocytes % (Manual) Basophils % (Manual) PT INR APTT pCO2 29 L pO2 66 H 167.0 H HCO3 20.6 L ABG pH 7.46 H ABG Total CO2 21.5 L ABG O2 Saturation 98.7 H ABG O2 Content 16.8 ABG Base Excess -2.2 L ABG Hemoglobin 12.1 ABG Carboxyhemoglobin 1.1 POC ABG HHb (Measured) 1.3 ABG Methemoglobin 0.9 ABG O2 Capacity 17.0 VBG pH 7.42 VBG pCO2 33.0 L VBG HCO3 21.4 VBG Total CO2 22.4 VBG O2 Sat (Calc) 95.8 H VBG Base Excess -2.3 L VBG Potassium 4.1 Hgb O2 Saturation 96.6 Glucose 123 H Lactate 4.4 H* FiO2 21.0 100.0 Crit Value Called To [facility] Crit Value Called By [facility] Blood Gas Notified Time 193 Sodium 139.0 Potassium Chloride 105.0 Carbon Dioxide Anion Gap BUN Creatinine Est GFR ( Amer) Est GFR (Non-Af Amer) Random Glucose Calcium Phosphorus Magnesium Total Bilirubin AST ALT Alkaline Phosphatase Lactate Dehydrogenase Total Creatine Kinase Troponin I NT-Pro-B Natriuret Pep Total Protein Albumin Globulin Albumin/Globulin Ratio Procalcitonin Venous Blood Potassium 4.1 Urine Color Yellow Urine Appearance Cloudy Urine pH 7.0 Ur Specific [place] 1.020 Urine Protein Trace H Urine Glucose (UA) Negative Urine Ketones Negative Urine Blood Moderate H Urine Nitrate Positive H Urine Bilirubin Negative Urine Urobilinogen 0.2 Ur Leukocyte Esterase Large H Urine RBC 2 - 5 H Urine WBC Tntc H Ur Epithelial Cells 1 - 3 Urine Bacteria Many Influenza Typ A,B (EIA) 09/02/18 09/02/18 09/02/18 20:39 21:55 22:46 WBC RBC Hgb Hct MCV MCH MCHC RDW Plt Count MPV Neut % (Auto) Lymph % (Auto) [place] % (Auto) Eos % (Auto) Baso % (Auto) Lymph # (Auto) [place] # (Auto) Eos # (Auto) Baso # (Auto) Absolute Neuts (auto) Neutrophils % (Manual) Lymphocytes % (Manual) Monocytes % (Manual) Basophils % (Manual) PT INR APTT pCO2 pO2 83 H HCO3 ABG pH ABG Total CO2 ABG O2 Saturation ABG O2 Content ABG Base Excess ABG Hemoglobin ABG Carboxyhemoglobin POC ABG HHb (Measured) ABG Methemoglobin ABG O2 Capacity VBG pH 7.47 H VBG pCO2 32.0 L VBG HCO3 23.3 VBG Total CO2 24.3 VBG O2 Sat (Calc) 97.8 H VBG Base Excess 0.3 VBG Potassium 3.2 L Hgb O2 Saturation Glucose 124 H Lactate 1.0 FiO2 21.0 Crit Value Called To Crit Value Called By Blood Gas Notified Time Sodium 140.0 Potassium Chloride 110.0 H Carbon Dioxide Anion Gap BUN Creatinine Est GFR ( Amer) Est GFR (Non-Af Amer) Random Glucose Calcium Phosphorus Magnesium Total Bilirubin AST ALT Alkaline Phosphatase Lactate Dehydrogenase 417 Total Creatine Kinase 36 Troponin I 0.03 NT-Pro-B Natriuret Pep Total Protein Albumin Globulin Albumin/Globulin Ratio Procalcitonin Venous Blood Potassium 3.2 L Urine Color Urine Appearance Urine pH Ur Specific [place] Urine Protein Urine Glucose (UA) Urine Ketones Urine Blood Urine Nitrate Urine Bilirubin Urine Urobilinogen Ur Leukocyte Esterase Urine RBC Urine WBC Ur Epithelial Cells Urine Bacteria Influenza Typ A,B (EIA) Negative for flu a/b 09/03/18 09/03/18 09/03/18 05:21 07:55 07:55 WBC 10.5 D RBC 3.71 Hgb 10.9 L Hct 34.4 L MCV 92.7 MCH 29.4 MCHC 31.7 RDW 14.6 H Plt Count 163 MPV 9.1 Neut % (Auto) 91.4 H Lymph % (Auto) 4.6 L [place]ooks % (Auto) 3.7 Eos % (Auto) 0.1 L Baso % (Auto) 0.2 Lymph # (Auto) 0.5 L [place] # (Auto) 0.4 Eos # (Auto) 0.0 Baso # (Auto) 0.02 Absolute Neuts (auto) 9.58 H Neutrophils % (Manual) Lymphocytes % (Manual) Monocytes % (Manual) Basophils % (Manual) PT INR APTT pCO2 pO2 HCO3 ABG pH ABG Total CO2 ABG O2 Saturation ABG O2 Content ABG Base Excess ABG Hemoglobin ABG Carboxyhemoglobin POC ABG HHb (Measured) ABG Methemoglobin ABG O2 Capacity VBG pH VBG pCO2 VBG HCO3 VBG Total CO2 VBG O2 Sat (Calc) VBG Base Excess VBG Potassium Hgb O2 Saturation Glucose Lactate FiO2 Crit Value Called To Crit Value Called By Blood Gas Notified Time Sodium 138 Potassium 4.0 Chloride 107 Carbon Dioxide 25 Anion Gap 10 BUN 22 H Creatinine 0.9 Est GFR ( Amer) > 60 Est GFR (Non-Af Amer) > 60 Random Glucose 108 Calcium 8.0 L Phosphorus 3.6 Magnesium 1.9 Total Bilirubin 0.9 AST 28 ALT 21 Alkaline Phosphatase 58 Lactate Dehydrogenase Total Creatine Kinase Troponin I NT-Pro-B Natriuret Pep Total Protein 6.0 Albumin 2.7 L Globulin 3.3 Albumin/Globulin Ratio 0.8 L Procalcitonin 17.60 H Venous Blood Potassium Urine Color Urine Appearance Urine pH Ur Specific [place] Urine Protein Urine Glucose (UA) Urine Ketones Urine Blood Urine Nitrate Urine Bilirubin Urine Urobilinogen Ur Leukocyte Esterase Urine RBC Urine WBC Ur Epithelial Cells Urine Bacteria Influenza Typ A,B (EIA) Assessment & Plan - Assessment and Plan (Free Text) Plan: Patient was seen and examined by me. I have reviewed the note of the medical librarian and have gone over the plan of care. I agree with the note. I have reviewed the medications and the last labs.
--- NOTE | 2018-09-03 07:55 | RAD ---
Date of service: 09/02/2018 HISTORY: Sepsis Patient COMPARISON: 11/17/2017 TECHNIQUE: 1 view obtained. FINDINGS: LUNGS: No active pulmonary disease. PLEURA: No significant pleural effusion identified, no pneumothorax apparent. CARDIOVASCULAR: Aortic calcification Mild cardiomegaly. No pulmonary vascular congestion. OSSEOUS STRUCTURES: No significant abnormalities. VISUALIZED UPPER ABDOMEN: Normal. OTHER FINDINGS: None. IMPRESSION: No active disease.
[2018-09-03 08:14] LABS: BASO # 0.02 K/mm3 (0.0-2.0); BASO % 0.2 % (0.0-3.0); EOS % 0.1 % (1.5-5.0); HEMOGLOBIN 10.9 g/dL (14.0-18.0); LYMPH # 0.5 (1.2-3.4); LYMPH % 4.6 % (22.0-35.0); MEAN CELL VOLUME 92.7 fl (80.0-105.0); MEAN CORPUSCULAR HEMOGLOBIN 29.4 pg (25.0-35.0); MEAN CORPUSCULAR HGB CONC 31.7 g/dl (31.0-37.0); MEAN PLATELET VOLUME 9.1 fl (7.0-11.0); MONO # 0.4 (0.1-0.6); MONO % 3.7 % (1.0-6.0); RBC 3.71 10^6/uL (3.5-6.1); RED CELL DISTRIBUTION WIDTH 14.6 % (11.5-14.5); WHITE BLOOD COUNT 10.5 10^3/uL (4.5-11.0)
[2018-09-03 08:42] LABS: ALB/GLOB RATIO 0.8 (1.1-1.8); ALBUMIN 2.7 g/dL (3.0-4.8); ALT/SGPT 21 U/L (7-56); AST/SGOT 28 U/L (17-59); BLOOD UREA NITROGEN 22 mg/dL (7-21); GFR NON-AFRICAN AMERICAN > 60
[2018-09-03] MEDS: Sodium Chloride 0.9% 1,000 ML IV SCH (09:41)
[2018-09-03] MEDS: cefTRIAXone 1 gm 1 GM/100 ML BAG IVPB SCH (12:08)
--- NOTE | 2018-09-03 12:31 | CARD ---
APPROVED REPORT Date of service: 09/02/2018 EKG Measurement Heart [id number] <Conclusion> Sinus tachycardia with occasional premature ventricular complexes Left bundle branch block Abnormal ECG
[2018-09-03 16:28] LABS: IRON 20 ug/dL (45-180)
[2018-09-03 16:38] LABS: % IRON SATURATION 9 % (20-55); TOTAL IRON BINDING CAPACITY 234 ug/dL (261-462)
--- NOTE | 2018-09-03 16:46 | CP.PCM.CON ---
<Segundo Miller - Last Filed: 09/03/18 16:43> History of Present Illness - History of Present Illness History of Present Illness: Segundo Miller D.O. PGY-3, Internal Medicine Resident, Infectious Disease Consultation Note 88 year old male with a PMH of afib on coumadin, CVA with left sided paresis, HTN, and dementia who was brought to [facility] [place] for complaints of chills. Infectious disease consultation was requested for sepsis. Patient was seen and examined at bedside. Patient relates how he was having outright rigors while at home and became concerned. Patient states that at this time he is beginning to feel a little better. Patient denies any coughing, shortness of breath, chest pain, nausea, vomiting, diarrhea, constipation but admits to some dysuria and urinary frequency which is new. Denies any other complaints other than the aforementioned rigors/chills. Review of Systems - Review of Systems All systems: reviewed and no additional remarkable complaints except (as per HPI) Past Patient History - Infectious Disease Hx of Infectious Diseases: None - Tetanus Immunizations Tetanus Immunization: Unknown - Past Medical History & Family History Past Medical History?: Yes - Past Social History Smoking Status: Never Smoked Alcohol: None Drugs: Denies Home Situation {Lives}: With Family - CARDIAC Hx Cardiac Disorders: Yes Hx Congestive Heart Failure: Yes Hx Hypertension: Yes Hx Peripheral Vascular Disease: Yes - PULMONARY Hx Respiratory Disorders: No - NEUROLOGICAL Hx Neurological Disorder: Yes HX Cerebrovascular Accident: Yes - HEENT Hx HEENT Problems: No - RENAL Hx Chronic Kidney Disease: No - ENDOCRINE/METABOLIC Hx Endocrine Disorders: Yes Hx Diabetes Mellitus Type 1: Yes - HEMATOLOGICAL/ONCOLOGICAL Hx Blood Disorders: No - INTEGUMENTARY Hx Dermatological Problems: No - MUSCULOSKELETAL/RHEUMATOLOGICAL Hx Musculoskeletal Disorders: Yes Hx Falls: Yes - GASTROINTESTINAL Hx Gastrointestinal Disorders: No - GENITOURINARY/GYNECOLOGICAL Hx Genitourinary Disorders: No - PSYCHIATRIC Hx Psychophysiologic Disorder: No - SURGICAL HISTORY Hx Surgeries: No - ANESTHESIA Hx Anesthesia: Yes Hx Anesthesia Reactions: No Hx Malignant Hyperthermia: No Meds Allergies/Adverse Reactions: Allergies Allergy/AdvReac Type Severity Reaction Status Date / Time No Known Allergies Allergy Verified 09/02/18 19:09 - Medications Medications: Current Medications Donepezil HCl (Aricept) 5 mg PO HS GUSTABO Ceftriaxone Sodium (Rocephin 1 Gram Ivpb) 1 gm in 100 mls @ 100 mls/hr IVPB DAILY GUSTABO; Protocol Stop: 09/11/18 10:01 Last Admin: 09/03/18 12:08 Dose: 100 mls/hr Sodium Chloride (Sodium Chloride 0.9%) 1,000 mls @ 75 mls/hr IV .[id number] GUSTABO Last Admin: 09/03/18 09:41 Dose: 75 mls/hr Warfarin Sodium (Coumadin) 5 mg PO 1800 GUSTABO; Protocol Physical Exam - Constitutional Appears: Non-toxic, Chronically Ill - Head Exam Head Exam: ATRAUMATIC, NORMOCEPHALIC - Eye Exam Eye Exam: EOMI. absent: Scleral icterus - ENT Exam ENT Exam: Mucous Membranes Moist - Neck Exam Neck exam: Positive for: Normal Inspection - Respiratory Exam Respiratory Exam: absent: Rales, Rhonchi, Wheezes - Cardiovascular Exam Cardiovascular Exam: +S1, +S2 - GI/Abdominal Exam GI & Abdominal Exam: Normal Bowel Sounds, Soft. absent: Distended, Tenderness - Extremities Exam Extremities exam: Negative for: calf tenderness, pedal edema - Neurological Exam Neurological exam: Alert - Skin Skin Exam: Dry, Warm Results - Vital Signs Recent Vital Signs: Last Vital Signs Temp 98.5 F 09/03/18 12:00 Pulse 71 09/03/18 14:00 Resp 20 09/03/18 12:00 BP 124/71 09/03/18 12:00 Pulse Ox 97 09/02/18 22:13 - Labs Result Diagrams: 09/03/18 07:55 09/03/18 07:55 Labs: Laboratory Results - last 24 hr 09/02/18 09/02/18 09/02/18 19:05 19:05 19:05 WBC 8.1 D RBC 4.16 Hgb 12.8 L Hct 38.2 L MCV 91.8 MCH 30.8 MCHC 33.5 RDW 14.3 Plt Count 207 MPV 8.9 Neut % (Auto) 93.1 H Lymph % (Auto) 5.2 L Mineral % (Auto) 0.6 L Eos % (Auto) 1.0 L Baso % (Auto) 0.1 Lymph # (Auto) 0.4 L Mineral # (Auto) 0.1 Eos # (Auto) 0.1 Baso # (Auto) 0.01 Absolute Neuts (auto) 7.50 H Neutrophils % (Manual) 89 H Lymphocytes % (Manual) 9 L Monocytes % (Manual) 1 Basophils % (Manual) 1 PT 26.5 H INR 2.39 APTT 66.9 H pCO2 pO2 HCO3 ABG pH ABG Total CO2 ABG O2 Saturation ABG O2 Content ABG Base Excess ABG Hemoglobin ABG Carboxyhemoglobin POC ABG HHb (Measured) ABG Methemoglobin ABG O2 Capacity VBG pH VBG pCO2 VBG HCO3 VBG Total CO2 VBG O2 Sat (Calc) VBG Base Excess VBG Potassium Hgb O2 Saturation Glucose Lactate FiO2 Crit Value Called To Crit Value Called By Blood Gas Notified Time Sodium 138 Potassium 3.9 Chloride 105 Carbon Dioxide 22 Anion Gap 15 BUN 22 H Creatinine 1.0 Est GFR ( Amer) > 60 Est GFR (Non-Af Amer) > 60 Random Glucose 117 H Calcium 9.0 Phosphorus 3.8 Magnesium 1.9 Iron TIBC % Saturation Total Bilirubin 0.8 AST 23 ALT 17 Alkaline Phosphatase 88 Lactate Dehydrogenase Total Creatine Kinase Troponin I NT-Pro-B Natriuret Pep 1270 H Total Protein 7.6 Albumin 3.8 Globulin 3.8 Albumin/Globulin Ratio 1.0 L Procalcitonin Venous Blood Potassium Urine Color Urine Appearance Urine pH Ur Specific [place] Urine Protein Urine Glucose (UA) Urine Ketones Urine Blood Urine Nitrate Urine Bilirubin Urine Urobilinogen Ur Leukocyte Esterase Urine RBC Urine WBC Ur Epithelial Cells Urine Bacteria Influenza Typ A,B (EIA) 09/02/18 09/02/18 09/02/18 19:20 19:25 19:50 WBC RBC Hgb Hct MCV MCH MCHC RDW Plt Count MPV Neut % (Auto) Lymph % (Auto) Mineral % (Auto) Eos % (Auto) Baso % (Auto) Lymph # (Auto) Mineral # (Auto) Eos # (Auto) Baso # (Auto) Absolute Neuts (auto) Neutrophils % (Manual) Lymphocytes % (Manual) Monocytes % (Manual) Basophils % (Manual) PT INR APTT pCO2 29 L pO2 66 H 167.0 H HCO3 20.6 L ABG pH 7.46 H ABG Total CO2 21.5 L ABG O2 Saturation 98.7 H ABG O2 Content 16.8 ABG Base Excess -2.2 L ABG Hemoglobin 12.1 ABG Carboxyhemoglobin 1.1 POC ABG HHb (Measured) 1.3 ABG Methemoglobin 0.9 ABG O2 Capacity 17.0 VBG pH 7.42 VBG pCO2 33.0 L VBG HCO3 21.4 VBG Total CO2 22.4 VBG O2 Sat (Calc) 95.8 H VBG Base Excess -2.3 L VBG Potassium 4.1 Hgb O2 Saturation 96.6 Glucose 123 H Lactate 4.4 H* FiO2 21.0 100.0 Crit Value Called To [facility] Crit Value Called By [facility] Blood Gas Notified Time 1929 Sodium 139.0 Potassium Chloride 105.0 Carbon Dioxide Anion Gap BUN Creatinine Est GFR ( Amer) Est GFR (Non-Af Amer) Random Glucose Calcium Phosphorus Magnesium Iron TIBC % Saturation Total Bilirubin AST ALT Alkaline Phosphatase Lactate Dehydrogenase Total Creatine Kinase Troponin I NT-Pro-B Natriuret Pep Total Protein Albumin Globulin Albumin/Globulin Ratio Procalcitonin Venous Blood Potassium 4.1 Urine Color Yellow Urine Appearance Cloudy Urine pH 7.0 Ur Specific [place] 1.020 Urine Protein Trace H Urine Glucose (UA) Negative Urine Ketones Negative Urine Blood Moderate H Urine Nitrate Positive H Urine Bilirubin Negative Urine Urobilinogen 0.2 Ur Leukocyte Esterase Large H Urine RBC 2 - 5 H Urine WBC Tntc H Ur Epithelial Cells 1 - 3 Urine Bacteria Many Influenza Typ A,B (EIA) 09/02/18 09/02/18 09/02/18 20:39 21:55 22:46 WBC RBC Hgb Hct MCV MCH MCHC RDW Plt Count MPV Neut % (Auto) Lymph % (Auto) Mineral % (Auto) Eos % (Auto) Baso % (Auto) Lymph # (Auto) Mineral # (Auto) Eos # (Auto) Baso # (Auto) Absolute Neuts (auto) Neutrophils % (Manual) Lymphocytes % (Manual) Monocytes % (Manual) Basophils % (Manual) PT INR APTT pCO2 pO2 83 H HCO3 ABG pH ABG Total CO2 ABG O2 Saturation ABG O2 Content ABG Base Excess ABG Hemoglobin ABG Carboxyhemoglobin POC ABG HHb (Measured) ABG Methemoglobin ABG O2 Capacity VBG pH 7.47 H VBG pCO2 32.0 L VBG HCO3 23.3 VBG Total CO2 24.3 VBG O2 Sat (Calc) 97.8 H VBG Base Excess 0.3 VBG Potassium 3.2 L Hgb O2 Saturation Glucose 124 H Lactate 1.0 FiO2 21.0 Crit Value Called To Crit Value Called By Blood Gas Notified Time Sodium 140.0 Potassium Chloride 110.0 H Carbon Dioxide Anion Gap BUN Creatinine Est GFR ( Amer) Est GFR (Non-Af Amer) Random Glucose Calcium Phosphorus Magnesium Iron TIBC % Saturation Total Bilirubin AST ALT Alkaline Phosphatase Lactate Dehydrogenase 417 Total Creatine Kinase 36 Troponin I 0.03 NT-Pro-B Natriuret Pep Total Protein Albumin Globulin Albumin/Globulin Ratio Procalcitonin Venous Blood Potassium 3.2 L Urine Color Urine Appearance Urine pH Ur Specific [place] Urine Protein Urine Glucose (UA) Urine Ketones Urine Blood Urine Nitrate Urine Bilirubin Urine Urobilinogen Ur Leukocyte Esterase Urine RBC Urine WBC Ur Epithelial Cells Urine Bacteria Influenza Typ A,B (EIA) Negative for flu a/b 09/03/18 09/03/18 09/03/18 05:21 07:55 07:55 WBC 10.5 D RBC 3.71 Hgb 10.9 L Hct 34.4 L MCV 92.7 MCH 29.4 MCHC 31.7 RDW 14.6 H Plt Count 163 MPV 9.1 Neut % (Auto) 91.4 H Lymph % (Auto) 4.6 L Mineral % (Auto) 3.7 Eos % (Auto) 0.1 L Baso % (Auto) 0.2 Lymph # (Auto) 0.5 L Mineral # (Auto) 0.4 Eos # (Auto) 0.0 Baso # (Auto) 0.02 Absolute Neuts (auto) 9.58 H Neutrophils % (Manual) Lymphocytes % (Manual) Monocytes % (Manual) Basophils % (Manual) PT INR APTT pCO2 pO2 HCO3 ABG pH ABG Total CO2 ABG O2 Saturation ABG O2 Content ABG Base Excess ABG Hemoglobin ABG Carboxyhemoglobin POC ABG HHb (Measured) ABG Methemoglobin ABG O2 Capacity VBG pH VBG pCO2 VBG HCO3 VBG Total CO2 VBG O2 Sat (Calc) VBG Base Excess VBG Potassium Hgb O2 Saturation Glucose Lactate FiO2 Crit Value Called To Crit Value Called By Blood Gas Notified Time Sodium 138 Potassium 4.0 Chloride 107 Carbon Dioxide 25 Anion Gap 10 BUN 22 H Creatinine 0.9 Est GFR ( Amer) > 60 Est GFR (Non-Af Amer) > 60 Random Glucose 108 Calcium 8.0 L Phosphorus 3.6 Magnesium 1.9 Iron TIBC % Saturation Total Bilirubin 0.9 AST 28 ALT 21 Alkaline Phosphatase 58 Lactate Dehydrogenase Total Creatine Kinase Troponin I NT-Pro-B Natriuret Pep Total Protein 6.0 Albumin 2.7 L Globulin 3.3 Albumin/Globulin Ratio 0.8 L Procalcitonin 17.60 H Venous Blood Potassium Urine Color Urine Appearance Urine pH Ur Specific [place] Urine Protein Urine Glucose (UA) Urine Ketones Urine Blood Urine Nitrate Urine Bilirubin Urine Urobilinogen Ur Leukocyte Esterase Urine RBC Urine WBC Ur Epithelial Cells Urine Bacteria Influenza Typ A,B (EIA) 09/03/18 09/03/18 07:55 15:09 WBC RBC Hgb Hct MCV MCH MCHC RDW Plt Count MPV Neut % (Auto) Lymph % (Auto) Mineral % (Auto) Eos % (Auto) Baso % (Auto) Lymph # (Auto) Mineral # (Auto) Eos # (Auto) Baso # (Auto) Absolute Neuts (auto) Neutrophils % (Manual) Lymphocytes % (Manual) Monocytes % (Manual) Basophils % (Manual) PT INR APTT pCO2 pO2 HCO3 ABG pH ABG Total CO2 ABG O2 Saturation ABG O2 Content ABG Base Excess ABG Hemoglobin ABG Carboxyhemoglobin POC ABG HHb (Measured) ABG Methemoglobin ABG O2 Capacity VBG pH VBG pCO2 VBG HCO3 VBG Total CO2 VBG O2 Sat (Calc) VBG Base Excess VBG Potassium Hgb O2 Saturation Glucose Lactate FiO2 Crit Value Called To Crit Value Called By Blood Gas Notified Time Sodium Potassium Chloride Carbon Dioxide Anion Gap BUN Creatinine Est GFR ( Amer) Est GFR (Non-Af Amer) Random Glucose Calcium Phosphorus Magnesium Iron 20 L TIBC 234 L % Saturation 9 L Total Bilirubin AST ALT Alkaline Phosphatase Lactate Dehydrogenase Total Creatine Kinase Troponin I NT-Pro-B Natriuret Pep Total Protein Albumin Globulin Albumin/Globulin Ratio Procalcitonin Venous Blood Potassium Urine Color Urine Appearance Urine pH Ur Specific [place] Urine Protein Urine Glucose (UA) Urine Ketones Urine Blood Urine Nitrate Urine Bilirubin Urine Urobilinogen Ur Leukocyte Esterase Urine RBC Urine WBC Ur Epithelial Cells Urine Bacteria Influenza Typ A,B (EIA) Negative for flu a/b Assessment & Plan - Assessment and Plan (Free Text) Assessment: 88 year old male with a PMH of afib on coumadin, CVA with left sided paresis, HTN, and dementia who was brought to [facility] [place] for complaints of chills. Infectious disease consultation was requested for sepsis. Plan: Sepsis likely from urinary source Afib on coumadin CVA with residual L sided weakness HTN Dementia Febrile with tachycardia and tacypnea and abnormal UA Pending urine cultures BCxs pending CXR reviewed and appears normal Procal elevated Flu negative Continue ceftriaxone day 2 Discontinued vancomycin and zosyn We will follow with you Patient was seen and examined and case to be discussed with attending physician Thank you for the pleasure of participating in the care of this patient - Date & Time Date: 09/03/18 Time: 07:50 <Ranulfo Blanchard - Last Filed: 09/03/18 18:21> Meds - Medications Medications: Current Medications Acetaminophen (Tylenol 325mg Tab) 650 mg PO Q4H PRN PRN Reason: Fever >100.4 F Last Admin: 09/03/18 17:40 Dose: 650 mg Donepezil HCl (Aricept) 5 mg PO HS GUSTABO Ceftriaxone Sodium (Rocephin 1 Gram Ivpb) 1 gm in 100 mls @ 100 mls/hr IVPB DAILY GUSTABO; Protocol Stop: 09/11/18 10:01 Last Admin: 09/03/18 12:08 Dose: 100 mls/hr Sodium Chloride (Sodium Chloride 0.9%) 1,000 mls @ 75 mls/hr IV .[id number] GUSTABO Last Admin: 09/03/18 09:41 Dose: 75 mls/hr Warfarin Sodium (Coumadin) 5 mg PO 1800 GUSTABO; Protocol Last Admin: 09/03/18 17:39 Dose: 5 mg Results - Vital Signs Recent Vital Signs: Last Vital Signs Temp 100.4 F H 09/03/18 18:00 Pulse 73 09/03/18 18:00 Resp 19 09/03/18 18:00 BP 118/61 09/03/18 18:00 Pulse Ox 97 09/02/18 22:13 - Labs Result Diagrams: 09/03/18 07:55 09/03/18 07:55 Labs: Laboratory Results - last 24 hr 09/02/18 09/02/18 09/02/18 19:05 19:05 19:05 WBC 8.1 D RBC 4.16 Hgb 12.8 L Hct 38.2 L MCV 91.8 MCH 30.8 MCHC 33.5 RDW 14.3 Plt Count 207 MPV 8.9 Neut % (Auto) 93.1 H Lymph % (Auto) 5.2 L Mineral % (Auto) 0.6 L Eos % (Auto) 1.0 L Baso % (Auto) 0.1 Lymph # (Auto) 0.4 L Mineral # (Auto) 0.1 Eos # (Auto) 0.1 Baso # (Auto) 0.01 Absolute Neuts (auto) 7.50 H Neutrophils % (Manual) 89 H Lymphocytes % (Manual) 9 L Monocytes % (Manual) 1 Basophils % (Manual) 1 PT 26.5 H INR 2.39 APTT 66.9 H pCO2 pO2 HCO3 ABG pH ABG Total CO2 ABG O2 Saturation ABG O2 Content ABG Base Excess ABG Hemoglobin ABG Carboxyhemoglobin POC ABG HHb (Measured) ABG Methemoglobin ABG O2 Capacity VBG pH VBG pCO2 VBG HCO3 VBG Total CO2 VBG O2 Sat (Calc) VBG Base Excess VBG Potassium Hgb O2 Saturation Glucose Lactate FiO2 Crit Value Called To Crit Value Called By Blood Gas Notified Time Sodium 138 Potassium 3.9 Chloride 105 Carbon Dioxide 22 Anion Gap 15 BUN 22 H Creatinine 1.0 Est GFR ( Amer) > 60 Est GFR (Non-Af Amer) > 60 Random Glucose 117 H Calcium 9.0 Phosphorus 3.8 Magnesium 1.9 Iron TIBC % Saturation Total Bilirubin 0.8 AST 23 ALT 17 Alkaline Phosphatase 88 Lactate Dehydrogenase Total Creatine Kinase Troponin I NT-Pro-B Natriuret Pep 1270 H Total Protein 7.6 Albumin 3.8 Globulin 3.8 Albumin/Globulin Ratio 1.0 L Procalcitonin Venous Blood Potassium Urine Color Urine Appearance Urine pH Ur Specific [place] Urine Protein Urine Glucose (UA) Urine Ketones Urine Blood Urine Nitrate Urine Bilirubin Urine Urobilinogen Ur Leukocyte Esterase Urine RBC Urine WBC Ur Epithelial Cells Urine Bacteria Influenza Typ A,B (EIA) 09/02/18 09/02/18 09/02/18 19:20 19:25 19:50 WBC RBC Hgb Hct MCV MCH MCHC RDW Plt Count MPV Neut % (Auto) Lymph % (Auto) Mineral % (Auto) Eos % (Auto) Baso % (Auto) Lymph # (Auto) Mineral # (Auto) Eos # (Auto) Baso # (Auto) Absolute Neuts (auto) Neutrophils % (Manual) Lymphocytes % (Manual) Monocytes % (Manual) Basophils % (Manual) PT INR APTT pCO2 29 L pO2 66 H 167.0 H HCO3 20.6 L ABG pH 7.46 H ABG Total CO2 21.5 L ABG O2 Saturation 98.7 H ABG O2 Content 16.8 ABG Base Excess -2.2 L ABG Hemoglobin 12.1 ABG Carboxyhemoglobin 1.1 POC ABG HHb (Measured) 1.3 ABG Methemoglobin 0.9 ABG O2 Capacity 17.0 VBG pH 7.42 VBG pCO2 33.0 L VBG HCO3 21.4 VBG Total CO2 22.4 VBG O2 Sat (Calc) 95.8 H VBG Base Excess -2.3 L VBG Potassium 4.1 Hgb O2 Saturation 96.6 Glucose 123 H Lactate 4.4 H* FiO2 21.0 100.0 Crit Value Called To [facility] Crit Value Called By [facility] Blood Gas Notified Time 193 Sodium 139.0 Potassium Chloride 105.0 Carbon Dioxide Anion Gap BUN Creatinine Est GFR ( Amer) Est GFR (Non-Af Amer) Random Glucose Calcium Phosphorus Magnesium Iron TIBC % Saturation Total Bilirubin AST ALT Alkaline Phosphatase Lactate Dehydrogenase Total Creatine Kinase Troponin I NT-Pro-B Natriuret Pep Total Protein Albumin Globulin Albumin/Globulin Ratio Procalcitonin Venous Blood Potassium 4.1 Urine Color Yellow Urine Appearance Cloudy Urine pH 7.0 Ur Specific [place] 1.020 Urine Protein Trace H Urine Glucose (UA) Negative Urine Ketones Negative Urine Blood Moderate H Urine Nitrate Positive H Urine Bilirubin Negative Urine Urobilinogen 0.2 Ur Leukocyte Esterase Large H Urine RBC 2 - 5 H Urine WBC Tntc H Ur Epithelial Cells 1 - 3 Urine Bacteria Many Influenza Typ A,B (EIA) 09/02/18 09/02/18 09/02/18 20:39 21:55 22:46 WBC RBC Hgb Hct MCV MCH MCHC RDW Plt Count MPV Neut % (Auto) Lymph % (Auto) Mineral % (Auto) Eos % (Auto) Baso % (Auto) Lymph # (Auto) Mineral # (Auto) Eos # (Auto) Baso # (Auto) Absolute Neuts (auto) Neutrophils % (Manual) Lymphocytes % (Manual) Monocytes % (Manual) Basophils % (Manual) PT INR APTT pCO2 pO2 83 H HCO3 ABG pH ABG Total CO2 ABG O2 Saturation ABG O2 Content ABG Base Excess ABG Hemoglobin ABG Carboxyhemoglobin POC ABG HHb (Measured) ABG Methemoglobin ABG O2 Capacity VBG pH 7.47 H VBG pCO2 32.0 L VBG HCO3 23.3 VBG Total CO2 24.3 VBG O2 Sat (Calc) 97.8 H VBG Base Excess 0.3 VBG Potassium 3.2 L Hgb O2 Saturation Glucose 124 H Lactate 1.0 FiO2 21.0 Crit Value Called To Crit Value Called By Blood Gas Notified Time Sodium 140.0 Potassium Chloride 110.0 H Carbon Dioxide Anion Gap BUN Creatinine Est GFR ( Amer) Est GFR (Non-Af Amer) Random Glucose Calcium Phosphorus Magnesium Iron TIBC % Saturation Total Bilirubin AST ALT Alkaline Phosphatase Lactate Dehydrogenase 417 Total Creatine Kinase 36 Troponin I 0.03 NT-Pro-B Natriuret Pep Total Protein Albumin Globulin Albumin/Globulin Ratio Procalcitonin Venous Blood Potassium 3.2 L Urine Color Urine Appearance Urine pH Ur Specific [place] Urine Protein Urine Glucose (UA) Urine Ketones Urine Blood Urine Nitrate Urine Bilirubin Urine Urobilinogen Ur Leukocyte Esterase Urine RBC Urine WBC Ur Epithelial Cells Urine Bacteria Influenza Typ A,B (EIA) Negative for flu a/b 09/03/18 09/03/18 09/03/18 05:21 07:55 07:55 WBC 10.5 D RBC 3.71 Hgb 10.9 L Hct 34.4 L MCV 92.7 MCH 29.4 MCHC 31.7 RDW 14.6 H Plt Count 163 MPV 9.1 Neut % (Auto) 91.4 H Lymph % (Auto) 4.6 L Mineral % (Auto) 3.7 Eos % (Auto) 0.1 L Baso % (Auto) 0.2 Lymph # (Auto) 0.5 L Mineral # (Auto) 0.4 Eos # (Auto) 0.0 Baso # (Auto) 0.02 Absolute Neuts (auto) 9.58 H Neutrophils % (Manual) Lymphocytes % (Manual) Monocytes % (Manual) Basophils % (Manual) PT INR APTT pCO2 pO2 HCO3 ABG pH ABG Total CO2 ABG O2 Saturation ABG O2 Content ABG Base Excess ABG Hemoglobin ABG Carboxyhemoglobin POC ABG HHb (Measured) ABG Methemoglobin ABG O2 Capacity VBG pH VBG pCO2 VBG HCO3 VBG Total CO2 VBG O2 Sat (Calc) VBG Base Excess VBG Potassium Hgb O2 Saturation Glucose Lactate FiO2 Crit Value Called To Crit Value Called By Blood Gas Notified Time Sodium 138 Potassium 4.0 Chloride 107 Carbon Dioxide 25 Anion Gap 10 BUN 22 H Creatinine 0.9 Est GFR ( Amer) > 60 Est GFR (Non-Af Amer) > 60 Random Glucose 108 Calcium 8.0 L Phosphorus 3.6 Magnesium 1.9 Iron TIBC % Saturation Total Bilirubin 0.9 AST 28 ALT 21 Alkaline Phosphatase 58 Lactate Dehydrogenase Total Creatine Kinase Troponin I NT-Pro-B Natriuret Pep Total Protein 6.0 Albumin 2.7 L Globulin 3.3 Albumin/Globulin Ratio 0.8 L Procalcitonin 17.60 H Venous Blood Potassium Urine Color Urine Appearance Urine pH Ur Specific [place] Urine Protein Urine Glucose (UA) Urine Ketones Urine Blood Urine Nitrate Urine Bilirubin Urine Urobilinogen Ur Leukocyte Esterase Urine RBC Urine WBC Ur Epithelial Cells Urine Bacteria Influenza Typ A,B (EIA) 09/03/18 09/03/18 07:55 15:09 WBC RBC Hgb Hct MCV MCH MCHC RDW Plt Count MPV Neut % (Auto) Lymph % (Auto) Mineral % (Auto) Eos % (Auto) Baso % (Auto) Lymph # (Auto) Mineral # (Auto) Eos # (Auto) Baso # (Auto) Absolute Neuts (auto) Neutrophils % (Manual) Lymphocytes % (Manual) Monocytes % (Manual) Basophils % (Manual) PT INR APTT pCO2 pO2 HCO3 ABG pH ABG Total CO2 ABG O2 Saturation ABG O2 Content ABG Base Excess ABG Hemoglobin ABG Carboxyhemoglobin POC ABG HHb (Measured) ABG Methemoglobin ABG O2 Capacity VBG pH VBG pCO2 VBG HCO3 VBG Total CO2 VBG O2 Sat (Calc) VBG Base Excess VBG Potassium Hgb O2 Saturation Glucose Lactate FiO2 Crit Value Called To Crit Value Called By Blood Gas Notified Time Sodium Potassium Chloride Carbon Dioxide Anion Gap BUN Creatinine Est GFR ( Amer) Est GFR (Non-Af Amer) Random Glucose Calcium Phosphorus Magnesium Iron 20 L TIBC 234 L % Saturation 9 L Total Bilirubin AST ALT Alkaline Phosphatase Lactate Dehydrogenase Total Creatine Kinase Troponin I NT-Pro-B Natriuret Pep Total Protein Albumin Globulin Albumin/Globulin Ratio Procalcitonin Venous Blood Potassium Urine Color Urine Appearance Urine pH Ur Specific [place] Urine Protein Urine Glucose (UA) Urine Ketones Urine Blood Urine Nitrate Urine Bilirubin Urine Urobilinogen Ur Leukocyte Esterase Urine RBC Urine WBC Ur Epithelial Cells Urine Bacteria Influenza Typ A,B (EIA) Negative for flu a/b Attending/Attestation - Attestation I have personally seen and examined this patient.: Yes I have fully participated in the care of the patient.: Yes I have reviewed all pertinent clinical information: Yes
[2018-09-03 21:41] LABS: FOLATE 9.1 ng/mL
--- NOTE | 2018-09-03 22:08 | HP ---
DATE OF EXAM: 09/03/2018 HISTORY OF PRESENT ILLNESS: The patient was seen and examined. I do agree with the note of the quality engineer medical device. I was involved in the plan of care. The patient is well known to me. He is an 88-year-old male who came into the hospital with chills. He was brought in by his son. The patient has a history of atrial fibrillation and is on Coumadin. 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 He has hypertension and dementia. The patient had a fever in the emergency room of 103. He was started on IV antibiotics. The patient has urine cultures and blood cultures that have been ordered. He was given Zosyn and vancomycin in the emergency room. He is going to be seen by Dr. Blanchard from [place]. He was placed on Rocephin for antibiotics. The patient is on Coumadin for his atrial fibrillation. He has blood work that is going to be repeated again tomorrow. I will discontinue telemetry monitoring. He is most likely going to need physical therapy. I did call the patient's son this morning and was not able to get touch with him. I left him a message to give him an update. The patient is on a heart-healthy diet. He seems deconditioned and he may need subacute rehab. Andrey Valdez MD
[2018-09-04] MEDS: Sodium Chloride 0.9% 1,000 ML IV SCH (00:39)
[2018-09-04 07:04] LABS: BASO # 0.01 K/mm3 (0.0-2.0); BASO % 0.2 % (0.0-3.0); EOS # 0.1 (0.0-0.7); LYMPH # 0.9 (1.2-3.4); LYMPH % 15.5 % (22.0-35.0); MEAN CELL VOLUME 92.1 fl (80.0-105.0); MEAN CORPUSCULAR HEMOGLOBIN 29.4 pg (25.0-35.0); MEAN CORPUSCULAR HGB CONC 31.9 g/dl (31.0-37.0); MEAN PLATELET VOLUME 8.8 fl (7.0-11.0); MONO # 0.5 (0.1-0.6); MONO % 7.4 % (1.0-6.0); RBC 3.4 10^6/uL (3.5-6.1); RED CELL DISTRIBUTION WIDTH 14.6 % (11.5-14.5); WHITE BLOOD COUNT 6.1 10^3/uL (4.5-11.0)
[2018-09-04 07:25] LABS: ALB/GLOB RATIO 0.8 (1.1-1.8); ALBUMIN 2.4 g/dL (3.0-4.8); ALT/SGPT 19 U/L (7-56); AST/SGOT 30 U/L (17-59); BLOOD UREA NITROGEN 24 mg/dL (7-21); CALCIUM 7.8 mg/dL (8.4-10.5); GFR NON-AFRICAN AMERICAN > 60
--- NOTE | 2018-09-04 07:39 | CP.PCM.PN ---
<Ilana Wright - Last Filed: 09/04/18 10:17> Subjective - Date & Time of Evaluation Date of Evaluation: 09/04/18 Time of Evaluation: 06:45 - Subjective Subjective: IM Resident progress note for Dr. Valdez's service Patient with no acute events overnight as per nurse. Patient had temp 0f 100.5 overnight, received Tylenol with resolution of the fever. Patient states overall he's feeling much better compared to arrival. No abdominal pain, states he's not able to control his bladder. No abdominal pain, no n/v or diarrhea. Able to tolerate po. Patient asking for stool softener. Spoke to patient's son, Teddy Perkins, updated him about patient's condition, son wants patient to go to [facility]. Objective - Vital Signs/Intake and Output Vital Signs (last 24 hours): Temp Pulse Resp BP Pulse Ox 98.6 F 68 18 114/68 99 09/04/18 01:23 09/04/18 01:23 09/04/18 01:23 09/04/18 01:23 09/04/18 01:23 Intake and Output: 09/04/18 09/04/18 06:59 18:59 Intake Total 180 Balance 180 - Medications Medications: Current Medications Acetaminophen (Tylenol 325mg Tab) 650 mg PO Q4H PRN PRN Reason: Fever >100.4 F Last Admin: 09/03/18 17:40 Dose: 650 mg Donepezil HCl (Aricept) 5 mg PO HS [facility] Last Admin: 09/03/18 22:25 Dose: 5 mg Ceftriaxone Sodium (Rocephin 1 Gram Ivpb) 1 gm in 100 mls @ 100 mls/hr IVPB DAILY [facility]; Protocol Stop: 09/11/18 10:01 Last Admin: 09/03/18 12:08 Dose: 100 mls/hr Sodium Chloride (Sodium Chloride 0.9%) 1,000 mls @ 75 mls/hr IV .[id number] [facility] Last Admin: 09/04/18 00:39 Dose: 75 mls/hr Warfarin Sodium (Coumadin) 5 mg PO 1800 G[facility]O; Protocol Last Admin: 09/03/18 17:39 Dose: 5 mg - Labs Labs: 09/04/18 06:50 09/04/18 06:50 PT 26.5 SECONDS (9.4-12.5) H 09/02/18 19:05 INR 2.39 09/02/18 19:05 APTT 66.9 Seconds (26.9-38.3) H 09/02/18 19:05 - Constitutional Appears: No Acute Distress, Chronically Ill - Head Exam Head Exam: ATRAUMATIC, NORMAL INSPECTION, NORMOCEPHALIC - Eye Exam Eye Exam: EOMI, Normal appearance, PERRL. absent: Scleral icterus - ENT Exam ENT Exam: Mucous Membranes Moist - Neck Exam Neck Exam: Full ROM, Normal Inspection - Respiratory Exam Respiratory Exam: Clear to Ausculation Bilateral, NORMAL BREATHING PATTERN. absent: Prolonged Expiratory Phase, Rales, Rhonchi, Wheezes, Respiratory Distress, Stridor - Cardiovascular Exam Cardiovascular Exam: Irregular Rhythm, +S1, +S2. absent: Bradycardia, Tachycardia, Clicks, Diastolic murmur, Gallop, REGULAR RHYTHM, JVD, RRR, Rubs, Murmur - GI/Abdominal Exam GI & Abdominal Exam: Soft, Hernia, Normal Bowel Sounds. absent: Distended, Firm, Guarding, Rigid, Tenderness, Diminished Bowel Sounds, Hyperactive Bowel Sounds, Rebound Additional comments: Patient doesn't have umbilical. - Extremities Exam Extremities Exam: Full ROM, Normal Capillary Refill, Normal Inspection. absent: Tenderness - Back Exam Back Exam: NORMAL INSPECTION. absent: rash noted, tenderness, vertebral tenderness - Neurological Exam Neurological Exam: Alert, Awake, Oriented x3 - Psychiatric Exam Psychiatric exam: Normal Affect, Normal Mood - Skin Skin Exam: Dry, Intact, Normal Color, Warm. absent: Diaphoretic, Erythema, Rash Assessment and Plan - Assessment and Plan (Free Text) Assessment: 1- Severe sepsis gram negative eva bacteremia likely from the gram negative eva UTI. 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 Pending sensitivity. On Rocephin per ID. No leukocytosis, tmax of 100.5. Normal PSA. Patient is hemodynamically stable, will dc iv fluid. Will start iv iron for anemia. Folate and vitamin b12 are normal. Will add miralax for constipation. Continue with Coumadin 5 mg daily. Continue with Aricept for dementia. On heart health diet, ensure supplementation added. PT eval. Patient seen, examined and case discussed with Dr. Valdez. <Andrey Valdez - Last Filed: 09/04/18 17:21> Objective - Vital Signs/Intake and Output Vital Signs (last 24 hours): Temp Pulse Resp BP Pulse Ox 98.4 F 91 H 16 112/65 97 09/04/18 14:00 09/04/18 14:00 09/04/18 14:00 09/04/18 14:00 09/04/18 14:00 Intake and Output: 09/04/18 09/04/18 06:59 18:59 Intake Total 180 Balance 180 - Medications Medications: Current Medications Acetaminophen (Tylenol 325mg Tab) 650 mg PO Q4H PRN PRN Reason: Fever >100.4 F Last Admin: 09/03/18 17:40 Dose: 650 mg Donepezil HCl (Aricept) 5 mg PO HS [facility] Last Admin: 09/03/18 22:25 Dose: 5 mg Ceftriaxone Sodium (Rocephin 1 Gram Ivpb) 1 gm in 100 mls @ 100 mls/hr IVPB DAILY [facility]; Protocol Stop: 09/11/18 10:01 Last Admin: 09/04/18 11:18 Dose: 100 mls/hr Iron Sucrose 200 mg/ Sodium (Chloride) 110 mls @ 110 mls/hr IVPB ONCE [facility] Stop: 09/09/18 10:16 Last Admin: 09/04/18 11:18 Dose: 110 mls/hr Polyethylene Glycol (Miralax) 17 gm PO BID [facility] Last Admin: 09/04/18 11:19 Dose: 17 gm Warfarin Sodium (Coumadin) 5 mg PO 1800 [facility]; Protocol Last Admin: 09/03/18 17:39 Dose: 5 mg - Labs Labs: 09/04/18 06:50 09/04/18 06:50 PT 33.7 SECONDS (9.4-12.5) H 09/04/18 10:00 INR 2.98 09/04/18 10:00 APTT 66.9 Seconds (26.9-38.3) H 09/02/18 19:05 Assessment and Plan - Assessment and Plan (Free Text) Plan: Pt seen and examined by me. I have reviewed the note of the medical unit secretary and I agree with it. I have discussed the assessment and plan with the resident. I have reviewed the medications and the last labs.
[2018-09-04 10:33] LABS: INR 2.98; PROTHROMBIN TIME 33.7 SECONDS (9.4-12.5)
[2018-09-04] MEDS: cefTRIAXone 1 gm 1 GM/100 ML BAG IVPB SCH (11:18)
[2018-09-04] MEDS: POLYETHYLENE GLYCOL 3350 17 GM/Dose PACKET PO SCH ×2 (11:19→17:19)
--- NOTE | 2018-09-04 11:37 | CP.PCM.PN ---
<Segundo Miller - Last Filed: 09/04/18 11:34> Subjective - Date & Time of Evaluation Date of Evaluation: 09/04/18 Time of Evaluation: 08:05 - Subjective Subjective: Segundo Miller D.O. PGY-3, Internal Medicine Resident, Infectious Disease Progress Note 88 year old male with a PMH of afib on coumadin, CVA with left sided paresis, HTN, and dementia who was brought to [facility] for complaints of chills. Infectious disease consultation was requested for sepsis. Patient was seen and examined at bedside. Resting comfortably. States feeling somewhat better. No active complaints. Objective - Vital Signs/Intake and Output Vital Signs (last 24 hours): Temp Pulse Resp BP Pulse Ox 98 F 60 18 123/60 93 L 09/04/18 06:00 09/04/18 06:00 09/04/18 06:00 09/04/18 06:00 09/04/18 06:00 Intake and Output: 09/04/18 09/04/18 06:59 18:59 Intake Total 180 Balance 180 - Medications Medications: Current Medications Acetaminophen (Tylenol 325mg Tab) 650 mg PO Q4H PRN PRN Reason: Fever >100.4 F Last Admin: 09/03/18 17:40 Dose: 650 mg Donepezil HCl (Aricept) 5 mg PO HS [facility] Last Admin: 09/03/18 22:25 Dose: 5 mg Ceftriaxone Sodium (Rocephin 1 Gram Ivpb) 1 gm in 100 mls @ 100 mls/hr IVPB DAILY [facility]; Protocol Stop: 09/11/18 10:01 Last Admin: 09/04/18 11:18 Dose: 100 mls/hr Iron Sucrose 200 mg/ Sodium (Chloride) 110 mls @ 110 mls/hr IVPB ONCE [facility] Stop: 09/09/18 10:16 Last Admin: 09/04/18 11:18 Dose: 110 mls/hr Polyethylene Glycol (Miralax) 17 gm PO BID [facility] Last Admin: 09/04/18 11:19 Dose: 17 gm Warfarin Sodium (Coumadin) 5 mg PO 1800 [facility]; Protocol Last Admin: 09/03/18 17:39 Dose: 5 mg - Labs Labs: 09/04/18 06:50 09/04/18 06:50 PT 33.7 SECONDS (9.4-12.5) H 09/04/18 10:00 INR 2.98 09/04/18 10:00 APTT 66.9 Seconds (26.9-38.3) H 09/02/18 19:05 - Constitutional Appears: Non-toxic, Chronically Ill, pleasant - Head Exam Head Exam: ATRAUMATIC, NORMOCEPHALIC - Eye Exam Eye Exam: EOMI. absent: Scleral icterus - ENT Exam ENT Exam: Mucous Membranes Moist - Neck Exam Neck exam: Positive for: Normal Inspection - Respiratory Exam Respiratory Exam: absent: Rales, Rhonchi, Wheezes - Cardiovascular Exam Cardiovascular Exam: +S1, +S2 - GI/Abdominal Exam GI & Abdominal Exam: Normal Bowel Sounds, Soft. absent: Distended, Tenderness - Extremities Exam Extremities exam: Negative for: calf tenderness, pedal edema - Neurological Exam Neurological exam: Alert, Awake - Skin Skin Exam: Dry, Warm Assessment and Plan - Assessment and Plan (Free Text) Assessment: 88 year old male with a PMH of afib on coumadin, CVA with left sided paresis, HTN, and dementia who was brought to [facility] for complaints of chills. Infectious disease consultation was requested for sepsis. Plan: Sepsis likely from urinary source with gram negative bacteremia Afib on coumadin CVA with residual L sided weakness HTN Dementia BCx and UCx showing gram negative rods, pending ID and C&S Procal elevated Continue ceftriaxone day 3 We will follow with you Patient was seen and examined and case to be discussed with attending physician Thank you for the pleasure of participating in the care of this patient <Jamel Moss - Last Filed: 09/04/18 22:18> Objective - Vital Signs/Intake and Output Vital Signs (last 24 hours): Temp Pulse Resp BP Pulse Ox 98.4 F 91 H 16 112/65 97 09/04/18 14:00 09/04/18 14:00 09/04/18 14:00 09/04/18 14:00 09/04/18 14:00 Intake and Output: 09/04/18 09/05/18 18:59 06:59 Intake Total 600 Balance 600 - Medications Medications: Current Medications Acetaminophen (Tylenol 325mg Tab) 650 mg PO Q4H PRN PRN Reason: Fever >100.4 F Last Admin: 09/03/18 17:40 Dose: 650 mg Donepezil HCl (Aricept) 5 mg PO HS [facility] Last Admin: 09/04/18 21:29 Dose: 5 mg Ceftriaxone Sodium (Rocephin 1 Gram Ivpb) 1 gm in 100 mls @ 100 mls/hr IVPB D AILY [facility]; Protocol Stop: 09/11/18 10:01 Last Admin: 09/04/18 11:18 Dose: 100 mls/hr Iron Sucrose 200 mg/ Sodium (Chloride) 110 mls @ 110 mls/hr IVPB ONCE [facility] Stop: 09/09/18 10:16 Last Admin: 09/04/18 11:18 Dose: 110 mls/hr Polyethylene Glycol (Miralax) 17 gm PO BID [facility] Last Admin: 09/04/18 17:19 Dose: Not Given Warfarin Sodium (Coumadin) 3 mg PO 1800 [facility]; Protocol - Labs Labs: 09/04/18 06:50 09/04/18 06:50 PT 33.7 SECONDS (9.4-12.5) H 09/04/18 10:00 INR 2.98 09/04/18 10:00 APTT 66.9 Seconds (26.9-38.3) H 09/02/18 19:05 Assessment and Plan - Assessment and Plan (Free Text) Plan: Infectious Diseases Attending Physician Attestation Patient seen and examined at bedside, discussed with durable medical equipment technician. I have reviewed the HPI, ROS, physical examination findings. I have also reviewed the pertinent labs and diagnostic imaging. I have fully participiated in the care of this patient. I agree with the above findings, assessment, plan. In addition, will continue Rocephin pending identification and sensitivities of the GNB in the blood and urine and will continue to monitor clinically.
--- NOTE | 2018-09-04 21:41 | PN ---
DATE: 09/04/2018 The patient was seen and examined. I do agree with the note of the medical program specialist. I was involved in the plan of care. The patient had blood cultures that were positive for gram-negative rods. He most likely has a urinary tract infection with sepsis. The patient is on MiraLax for constipation. He is going to be on Rocephin for antibiotics. He is on Aricept for his dementia. He is going to continue with Coumadin. His INR is therapeutic at 2.98. I will decrease his Coumadin dosage. His INR is slowly increasing. This is most likely secondary to the antibiotics that the patient is taking on. I did speak to him about subacute rehab. The patient may be interested in . He is on Coumadin for his atrial fibrillation and DVT. Get IVC filter in place. The patient has constipation. He is being treated. He has a procalcitonin level that is elevated and treating the sepsis. Andrey Valdez MD
[2018-09-04 22:53] VITALS: O2SAT 94
[2018-09-05 07:34] LABS: INR 2.5; PROTHROMBIN TIME 28.2 SECONDS (9.4-12.5)
--- NOTE | 2018-09-05 09:38 | CP.PCM.DIS ---
Provider - Provider Date of Admission: 09/02/18 20:55 Attending physician: Andrey Valdez MD Primary care physician: NO PRIMARY CARE PROVIDER Consults: 09/02/18 21:02 Infectious Disease Consult Stat Comment: Consulting Provider: Ranulfo Blanchard Consulting Physician: Ranulfo Blanchard Reason for Consult: sepsis/PNA Hospital Course - Lab Results Lab Results: Micro Results 09/02/18 19:05 Blood Blood Culture - Preliminary Gram Negative Oscar 09/02/18 19:05 Blood Gram Stain - Final 09/02/18 19:20 Blood Blood Culture - Preliminary Gram Negative Oscar 09/02/18 19:20 Blood Gram Stain - Final 09/02/18 19:20 Urine Random Urine Culture - Preliminary Gram Negative Oscar Most Recent Lab Values WBC 6.1 10^3/uL (4.5-11.0) D 09/04/18 06:50 RBC 3.40 10^6/uL (3.5-6.1) L 09/04/18 06:50 Hgb 10.0 g/dL (14.0-18.0) L 09/04/18 06:50 Hct 31.3 % (42.0-52.0) L 09/04/18 06:50 MCV 92.1 fl (80.0-105.0) 09/04/18 06:50 MCH 29.4 pg (25.0-35.0) 09/04/18 06:50 MCHC 31.9 g/dl (31.0-37.0) 09/04/18 06:50 RDW 14.6 % (11.5-14.5) H 09/04/18 06:50 Plt Count 134 10^3/uL (120.0-450.0) 09/04/18 06:50 MPV 8.8 fl (7.0-11.0) 09/04/18 06:50 Neut % (Auto) 74.9 % (50.0-68.0) H 09/04/18 06:50 Lymph % (Auto) 15.5 % (22.0-35.0) L 09/04/18 06:50 [place] % (Auto) 7.4 % (1.0-6.0) H 09/04/18 06:50 Eos % (Auto) 2.0 % (1.5-5.0) 09/04/18 06:50 Baso % (Auto) 0.2 % (0.0-3.0) 09/04/18 06:50 Lymph # (Auto) 0.9 (1.2-3.4) L 09/04/18 06:50 [place] # (Auto) 0.5 (0.1-0.6) 09/04/18 06:50 Eos # (Auto) 0.1 (0.0-0.7) 09/04/18 06:50 Baso # (Auto) 0.01 K/mm3 (0.0-2.0) 09/04/18 06:50 Absolute Neuts (auto) 4.55 (1.4-6.5) 09/04/18 06:50 Neutrophils % (Manual) 89 % (50.0-70.0) H 09/02/18 19:05 Lymphocytes % (Manual) 9 % (22.0-35.0) L 09/02/18 19:05 Monocytes % (Manual) 1 % (1.0-6.0) 09/02/18 19:05 Basophils % (Manual) 1 % (0.0-1.0) 09/02/18 19:05 PT 28.2 SECONDS (9.4-12.5) H 09/05/18 07:00 INR 2.50 09/05/18 07:00 APTT 66.9 Seconds (26.9-38.3) H 09/02/18 19:05 pCO2 29 mm/Hg (35-45) L 09/02/18 19:50 pO2 83 mm/Hg (30-55) H 09/02/18 22:46 HCO3 20.6 mmol/L (21-28) L 09/02/18 19:50 ABG pH 7.46 (7.35-7.45) H 09/02/18 19:50 ABG Total CO2 21.5 mmol.L (22-28) L 09/02/18 19:50 ABG O2 Saturation 98.7 % (95-98) H 09/02/18 19:50 ABG O2 Content 16.8 ML/dl (15-23) 09/02/18 19:50 ABG Base Excess -2.2 mmol/L (-2.0-3.0) L 09/02/18 19:50 ABG Hemoglobin 12.1 g/dL (11.7-17.4) 09/02/18 19:50 ABG Carboxyhemoglobin 1.1 % (0.5-1.5) 09/02/18 19:50 POC ABG HHb (Measured) 1.3 % (0-5) 09/02/18 19:50 ABG Methemoglobin 0.9 % (0.0-3.0) 09/02/18 19:50 ABG O2 Capacity 17.0 mL/dl (16-24) 09/02/18 19:50 VBG pH 7.47 (7.32-7.43) H 09/02/18 22:46 VBG pCO2 32.0 (40-60) L 09/02/18 22:46 VBG HCO3 23.3 mmol/l (21-28) 09/02/18 22:46 VBG Total CO2 24.3 mmol.L (22-28) 09/02/18 22:46 VBG O2 Sat (Calc) 97.8 % (40-65) H 09/02/18 22:46 VBG Base Excess 0.3 mmol/L (0.0-2.0) 09/02/18 22:46 VBG Potassium 3.2 mmol/L (3.6-5.2) L 09/02/18 22:46 Hgb O2 Saturation 96.6 % (95.0-98.0) 09/02/18 19:50 Sodium 140.0 mmol/L (132-148) 09/02/18 22:46 Chloride 110.0 mmol/L (98-107) H 09/02/18 22:46 Glucose 124 mg/dl (75-110) H 09/02/18 22:46 Lactate 1.0 mmol/L (0.7-2.1) 09/02/18 22:46 FiO2 21.0 % 09/02/18 22:46 Crit Value Called To [facility] 09/02/18 19:25 Crit Value Called By [facility] 09/02/18 19:25 Blood Gas Notified Time 192909/02/18 19:25 Sodium 137 mmol/L (132-148) 09/04/18 06:50 Potassium 3.8 mmol/L (3.6-5.0) 09/04/18 06:50 Chloride 106 mmol/L (98-107) 09/04/18 06:50 Carbon Dioxide 26 mmol/L (21-33) 09/04/18 06:50 Anion Gap 9 (10-20) L 09/04/18 06:50 BUN 24 mg/dL (7-21) H 09/04/18 06:50 Creatinine 0.8 mg/dl (0.8-1.5) 09/04/18 06:50 Est GFR ( Amer) > 60 09/04/18 06:50 Est GFR (Non-Af Amer) > 60 09/04/18 06:50 Random Glucose 94 mg/dL (70-110) 09/04/18 06:50 Calcium 7.8 mg/dL (8.4-10.5) L 09/04/18 06:50 Phosphorus 3.6 mg/dL (2.5-4.5) 09/03/18 07:55 Magnesium 1.9 mg/dL (1.7-2.2) 09/03/18 07:55 Iron 20 ug/dL (45-180) L 09/03/18 07:55 TIBC 234 ug/dL (261-462) L 09/03/18 07:55 % Saturation 9 % (20-55) L 09/03/18 07:55 Ferritin 112.0 ng/mL 09/03/18 07:55 Total Bilirubin 0.8 mg/dL (0.2-1.3) 09/04/18 06:50 AST 30 U/L (17-59) 09/04/18 06:50 ALT 19 U/L (7-56) 09/04/18 06:50 Alkaline Phosphatase 57 U/L (38-126) 09/04/18 06:50 Lactate Dehydrogenase 417 U/L (333-699) 09/02/18 20:39 Total Creatine Kinase 36 U/L (35-230) 09/02/18 20:39 Troponin I 0.03 ng/mL 09/02/18 20:39 NT-Pro-B Natriuret Pep 1270 pg/mL (0-450) H 09/02/18 19:05 Total Protein 5.5 g/dL (5.8-8.3) L 09/04/18 06:50 Albumin 2.4 g/dL (3.0-4.8) L 09/04/18 06:50 Globulin 3.1 gm/dL 09/04/18 06:50 Albumin/Globulin Ratio 0.8 (1.1-1.8) L 09/04/18 06:50 Prostate Specific Ag 3.6 ng/mL (0-4.0) 09/04/18 06:50 Vitamin B12 517 pg/mL (239-931) 09/03/18 07:55 Folate 9.1 ng/mL 09/03/18 07:55 Procalcitonin 17.60 NG/ML (0.19-0.49) H 09/03/18 05:21 Venous Blood Potassium 3.2 mmol/L (3.6-5.2) L 09/02/18 22:46 Urine Color Yellow (YELLOW) 09/02/18 19:20 Urine Appearance Cloudy (CLEAR) 09/02/18 19:20 Urine pH 7.0 (4.7-8.0) 09/02/18 19:20 Ur Specific Needles 1.020 (1.005-1.035) 09/02/18 19:20 Urine Protein Trace mg/dL (<30 mg/dL) H 09/02/18 19:20 Urine Glucose (UA) Negative mg/dL (NEGATIVE) 09/02/18 19:20 Urine Ketones Negative mg/dL (NEGATIVE) 09/02/18 19:20 Urine Blood Moderate (NEGATIVE) H 09/02/18 19:20 Urine Nitrate Positive (NEGATIVE) H 09/02/18 19:20 Urine Bilirubin Negative (NEGATIVE) 09/02/18 19:20 Urine Urobilinogen 0.2 E.U./dL (<1 E.U./dL) 09/02/18 19:20 Ur Leukocyte Esterase Large Kain/uL (NEGATIVE) H 09/02/18 19:20 Urine RBC 2 - 5 /hpf (0-2) H 09/02/18 19:20 Urine WBC Tntc /hpf (0-6) H 09/02/18 19:20 Ur Epithelial Cells 1 - 3 /hpf (0-5) 09/02/18 19:20 Urine Bacteria Many /hpf (NONE) 09/02/18 19:20 Influenza Typ A,B (EIA) Negative for flu a/b (NEGATIVE) 09/03/18 15:09 Discharge Exam - Head Exam Head Exam: ATRAUMATIC, NORMAL INSPECTION, NORMOCEPHALIC Discharge Plan - Follow Up Plan Condition: STABLE Disposition: HOME/ ROUTINE Instructions: Sepsis (ED) Referrals: PCP,NO [Primary Care Provider] -
[2018-09-05] MEDS: cefTRIAXone 1 gm 1 GM/100 ML BAG IVPB SCH (09:59)
[2018-09-05] MEDS: POLYETHYLENE GLYCOL 3350 17 GM/Dose PACKET PO SCH ×2 (09:59→17:58)
[2018-09-05 10:10] VITALS: PULSE 63
[2018-09-05] MEDS ORDERED: Meropenem IV 1 gm in NS 1 GM/50 ML BAG IVPB SCH (14:00)
--- NOTE | 2018-09-05 14:08 | CP.PCM.PN ---
<Ilana Wright - Last Filed: 09/05/18 14:14> Subjective - Date & Time of Evaluation Date of Evaluation: 09/05/18 Time of Evaluation: 06:45 - Subjective Subjective: IM Resident progress note for Dr. Valdez's service Patient with no acute events overnight. Patient had bowel movement last night. No fever or chills. No nausea, vomiting or diarrhea. Tolerating po intake. Objective - Vital Signs/Intake and Output Vital Signs (last 24 hours): Temp Pulse Resp BP Pulse Ox 98 F 63 98 H 158/85 H 94 L 09/05/18 06:00 09/05/18 10:00 09/05/18 06:00 09/05/18 10:00 09/04/18 22:00 Intake and Output: 09/05/18 09/05/18 06:59 18:59 Intake Total 720 Balance 720 - Medications Medications: Current Medications Acetaminophen (Tylenol 325mg Tab) 650 mg PO Q4H PRN PRN Reason: Fever >100.4 F Last Admin: 09/03/18 17:40 Dose: 650 mg Donepezil HCl (Aricept) 5 mg PO HS [facility] Last Admin: 09/04/18 21:29 Dose: 5 mg Iron Sucrose 200 mg/ Sodium (Chloride) 110 mls @ 110 mls/hr IVPB ONCE [facility] Stop: 09/09/18 10:16 Last Admin: 09/05/18 10:00 Dose: 110 mls/hr Meropenem (Merrem Iv 1 Gm Premix) 1 gm in 50 mls @ 100 mls/hr IVPB Q8 [facility]; Protocol Stop: 09/19/18 14:01 Last Admin: 09/05/18 13:53 Dose: 100 mls/hr Lisinopril (Zestril) 5 mg PO DAILY [facility] Last Admin: 09/05/18 10:00 Dose: 5 mg Polyethylene Glycol (Miralax) 17 gm PO BID [facility] Last Admin: 09/05/18 09:59 Dose: 17 gm Warfarin Sodium (Coumadin) 3 mg PO 1800 [facility]; Protocol - Labs Labs: 09/04/18 06:50 09/04/18 06:50 PT 28.2 SECONDS (9.4-12.5) H 09/05/18 07:00 INR 2.50 09/05/18 07:00 APTT 66.9 Seconds (26.9-38.3) H 09/02/18 19:05 - Constitutional Appears: No Acute Distress, Chronically Ill - Head Exam Head Exam: ATRAUMATIC, NORMAL INSPECTION, NORMOCEPHALIC - Eye Exam Eye Exam: EOMI, Normal appearance, PERRL. absent: Scleral icterus Pupil Exam: NORMAL ACCOMODATION - ENT Exam ENT Exam: Mucous Membranes Moist - Neck Exam Neck Exam: Normal Inspection - Respiratory Exam Respiratory Exam: Clear to Ausculation Bilateral, NORMAL BREATHING PATTERN. absent: Rales, Rhonchi, Wheezes, Respiratory Distress, Stridor - Cardiovascular Exam Cardiovascular Exam: REGULAR RHYTHM, RRR, +S1, +S2. absent: Bradycardia, Tachycardia, Diastolic murmur, Gallop, Irregular Rhythm, JVD, Rubs, Murmur - GI/Abdominal Exam GI & Abdominal Exam: Soft, Normal Bowel Sounds. absent: Distended, Firm, Guarding, Rigid, Tenderness, Organomegaly, Rebound - Extremities Exam Extremities Exam: Normal Inspection. absent: Pedal Edema - Back Exam Back Exam: NORMAL INSPECTION - Neurological Exam Neurological Exam: Alert, Awake, Oriented x3 - Psychiatric Exam Psychiatric exam: Normal Affect, Normal Mood - Skin Skin Exam: Dry, Intact, Warm Assessment and Plan - Assessment and Plan (Free Text) Assessment: 1- Severe sepsis gram negative eva bacteremia likely from the gram negative eva UTI. 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 Antibiotic to be switched from Rocephin to merrem per ID. Continue with IV iron for the iron deficiency anemia, might need colonoscopy as outpatient. Continue with miralax for constipation. Continue with Coumadin 3 mg daily and monitor INR. Co ntinue with Aricept for dementia. On heart health diet, ensure supplementation added. PT recommending [facility] pending beds. Patient seen, examined and case discussed with Dr. Valdez. <Andrey Valdez S - Last Filed: 09/06/18 21:12> Objective - Vital Signs/Intake and Output Vital Signs (last 24 hours): Temp Pulse Resp BP Pulse Ox 97.5 F L 63 16 126/64 94 L 09/05/18 14:00 09/05/18 14:00 09/05/18 14:00 09/05/18 14:00 09/05/18 14:00 - Labs Labs: 09/04/18 06:50 09/04/18 06:50 PT 28.2 SECONDS (9.4-12.5) H 09/05/18 07:00 INR 2.50 09/05/18 07:00 APTT 66.9 Seconds (26.9-38.3) H 09/02/18 19:05 Assessment and Plan - Assessment and Plan (Free Text) Plan: Pt seen and examined by me. This is a late entry.I have reviewed the note of the durable medical equipment technician and I agree with it. I have discussed the assessment and plan with the resident. I have reviewed the medications and the last labs.
[2018-09-05 14:41] VITALS: BP 126/64; RESP 16; TEMP 97.5
--- NOTE | 2018-09-05 15:37 | CP.PCM.PN ---
<Segundo Miller - Last Filed: 09/05/18 15:33> Subjective - Date & Time of Evaluation Date of Evaluation: 09/05/18 Time of Evaluation: 07:40 - Subjective Subjective: Segundo Miller D.O. PGY-3, Internal Medicine Resident, Infectious Disease Progress Note 88 year old male with a PMH of afib on coumadin, CVA with left sided paresis, HTN, and dementia who was brought to [facility] for complaints of chills. Infectious disease consultation was requested for sepsis. Patient was seen and examined at bedside. Appears generally comfortable. No active complaints. States ready to go home. Objective - Vital Signs/Intake and Output Vital Signs (last 24 hours): Temp Pulse Resp BP Pulse Ox 97.5 F L 63 16 126/64 94 L 09/05/18 14:00 09/05/18 14:00 09/05/18 14:00 09/05/18 14:00 09/05/18 14:00 Intake and Output: 09/05/18 09/05/18 06:59 18:59 Intake Total 720 Balance 720 - Medications Medications: Current Medications Acetaminophen (Tylenol 325mg Tab) 650 mg PO Q4H PRN PRN Reason: Fever >100.4 F Last Admin: 09/03/18 17:40 Dose: 650 mg Donepezil HCl (Aricept) 5 mg PO HS GUSTABO Last Admin: 09/04/18 21:29 Dose: 5 mg Iron Sucrose 200 mg/ Sodium (Chloride) 110 mls @ 110 mls/hr IVPB ONCE GUSTABO Stop: 09/09/18 10:16 Last Admin: 09/05/18 10:00 Dose: 110 mls/hr Meropenem (Merrem Iv 1 Gm Premix) 1 gm in 50 mls @ 100 mls/hr IVPB Q8 GUSTABO; Protocol Stop: 09/19/18 14:01 Last Admin: 09/05/18 13:53 Dose: 100 mls/hr Lisinopril (Zestril) 5 mg PO DAILY GUSTABO Last Admin: 09/05/18 10:00 Dose: 5 mg Polyethylene Glycol (Miralax) 17 gm PO BID GUSTABO Last Admin: 09/05/18 09:59 Dose: 17 gm Warfarin Sodium (Coumadin) 3 mg PO 1800 GUSTABO; Protocol - Labs Labs: 09/04/18 06:50 09/04/18 06:50 PT 28.2 SECONDS (9.4-12.5) H 09/05/18 07:00 INR 2.50 09/05/18 07:00 APTT 66.9 Seconds (26.9-38.3) H 09/02/18 19:05 - Constitutional Appears: Non-toxic, Chronically Ill, pleasant - Head Exam Head Exam: ATRAUMATIC, NORMOCEPHALIC - Eye Exam Eye Exam: EOMI - ENT Exam ENT Exam: Mucous Membranes Moist - Neck Exam Neck exam: Positive for: Normal Inspection - Respiratory Exam Respiratory Exam: absent: Rales, Rhonchi, Wheezes - Cardiovascular Exam Cardiovascular Exam: +S1, +S2 - GI/Abdominal Exam GI & Abdominal Exam: Normal Bowel Sounds, Soft. - Extremities Exam Extremities exam: Negative for: calf tenderness, pedal edema - Neurological Exam Neurological exam: Alert, Awake - Skin Skin Exam: Dry, Warm Assessment and Plan - Assessment and Plan (Free Text) Assessment: 88 year old male with a PMH of afib on coumadin, CVA with left sided paresis, HTN, and dementia who was brought to [facility] for complaints of chills. Infectious disease consultation was requested for sepsis. Plan: Sepsis likely from urinary source with Proteus mirabilis in urine and blood Afib on coumadin CVA with residual L sided weakness HTN Dementia UCx with proteus mirabilis Original BCx showing proteus mirabilis BCx repeat negative 2/2 day 1 Will switch from ceftriaxone to merropem for 14 day course Discussed with primary team We will follow with you Patient was seen and examined and case to be discussed with attending physician Thank you for the pleasure of participating in the care of this patient <Jamel Moss - Last Filed: 09/05/18 22:32> Objective - Vital Signs/Intake and Output Vital Signs (last 24 hours): Temp Pulse Resp BP Pulse Ox 97.5 F L 63 16 126/64 94 L 09/05/18 14:00 09/05/18 14:00 09/05/18 14:00 09/05/18 14:00 09/05/18 14:00 - Labs Labs: 09/04/18 06:50 09/04/18 06:50 PT 28.2 SECONDS (9.4-12.5) H 09/05/18 07:00 INR 2.50 09/05/18 07:00 APTT 66.9 Seconds (26.9-38.3) H 09/02/18 19:05 Assessment and Plan - Assessment and Plan (Free Text) Plan: Infectious Diseases Attending Physician Attestation Patient seen and examined at bedside, discussed with medical oncologist. I have reviewed the HPI, ROS, physical examination findings. I have also reviewed the pertinent labs and diagnostic imaging. I have fully participiated in the care of this patient. I agree with the above findings, assessment, plan. In addition, will change to Merrem for multidrug-resistant Proteus bacteremia, probably urine as the source. Would recommend 2 weeks of antibiotics. PSA is only 3.6
--- NOTE | 2018-09-05 18:32 | CP.PCM.DIS ---
<KyleIlana - Last Filed: 09/06/18 14:34> Provider - Provider Date of Admission: 09/02/18 20:55 Attending physician: Andrey Valdez MD Primary care physician: NO PRIMARY CARE PROVIDER Consults: 09/02/18 21:02 Infectious Disease Consult Stat Comment: Consulting Provider: Ranulfo Blanchard Consulting Physician: Ranulfo Blanchard Reason for Consult: sepsis/PNA Time Spent in preparation of Discharge (in minutes): 45 Diagnosis - Discharge Diagnosis (1) Bacteremia Status: Acute (2) UTI (urinary tract infection) Status: Acute (3) H/O deep venous thrombosis Status: Chronic (4) Iron deficiency Status: Acute (5) Atrial fibrillation Status: Chronic (6) HTN (hypertension) Status: Chronic (7) Stroke Status: Chronic Hospital Course - Lab Results Lab Results: Micro Results 09/02/18 19:20 Blood Blood Culture - Final Proteus Mirabilis 09/02/18 19:20 Blood Gram Stain - Final 09/02/18 19:05 Blood Blood Culture - Final Proteus Mirabilis 09/02/18 19:05 Blood Gram Stain - Final 09/02/18 19:20 Urine Random Urine Culture - Final Proteus Mirabilis 09/04/18 10:00 Blood-Venous Blood Culture - Preliminary NO GROWTH AFTER 24 HOURS 09/04/18 09:30 Blood-Venous Blood Culture - Preliminary NO GROWTH AFTER 24 HOURS Most Recent Lab Values WBC 6.1 10^3/uL (4.5-11.0) D 09/04/18 06:50 RBC 3.40 10^6/uL (3.5-6.1) L 09/04/18 06:50 Hgb 10.0 g/dL (14.0-18.0) L 09/04/18 06:50 Hct 31.3 % (42.0-52.0) L 09/04/18 06:50 MCV 92.1 fl (80.0-105.0) 09/04/18 06:50 MCH 29.4 pg (25.0-35.0) 09/04/18 06:50 MCHC 31.9 g/dl (31.0-37.0) 09/04/18 06:50 RDW 14.6 % (11.5-14.5) H 09/04/18 06:50 Plt Count 134 10^3/uL (120.0-450.0) 09/04/18 06:50 MPV 8.8 fl (7.0-11.0) 09/04/18 06:50 Neut % (Auto) 74.9 % (50.0-68.0) H 09/04/18 06:50 Lymph % (Auto) 15.5 % (22.0-35.0) L 09/04/18 06:50 [place] % (Auto) 7.4 % (1.0-6.0) H 09/04/18 06:50 Eos % (Auto) 2.0 % (1.5-5.0) 09/04/18 06:50 Baso % (Auto) 0.2 % (0.0-3.0) 09/04/18 06:50 Lymph # (Auto) 0.9 (1.2-3.4) L 09/04/18 06:50 [place] # (Auto) 0.5 (0.1-0.6) 09/04/18 06:50 Eos # (Auto) 0.1 (0.0-0.7) 09/04/18 06:50 Baso # (Auto) 0.01 K/mm3 (0.0-2.0) 09/04/18 06:50 Absolute Neuts (auto) 4.55 (1.4-6.5) 09/04/18 06:50 Neutrophils % (Manual) 89 % (50.0-70.0) H 09/02/18 19:05 Lymphocytes % (Manual) 9 % (22.0-35.0) L 09/02/18 19:05 Monocytes % (Manual) 1 % (1.0-6.0) 09/02/18 19:05 Basophils % (Manual) 1 % (0.0-1.0) 09/02/18 19:05 PT 28.2 SECONDS (9.4-12.5) H 09/05/18 07:00 INR 2.50 09/05/18 07:00 APTT 66.9 Seconds (26.9-38.3) H 09/02/18 19:05 pCO2 29 mm/Hg (35-45) L 09/02/18 19:50 pO2 83 mm/Hg (30-55) H 09/02/18 22:46 HCO3 20.6 mmol/L (21-28) L 09/02/18 19:50 ABG pH 7.46 (7.35-7.45) H 09/02/18 19:50 ABG Total CO2 21.5 mmol.L (22-28) L 09/02/18 19:50 ABG O2 Saturation 98.7 % (95-98) H 09/02/18 19:50 ABG O2 Content 16.8 ML/dl (15-23) 09/02/18 19:50 ABG Base Excess -2.2 mmol/L (-2.0-3.0) L 09/02/18 19:50 ABG Hemoglobin 12.1 g/dL (11.7-17.4) 09/02/18 19:50 ABG Carboxyhemoglobin 1.1 % (0.5-1.5) 09/02/18 19:50 POC ABG HHb (Measured) 1.3 % (0-5) 09/02/18 19:50 ABG Methemoglobin 0.9 % (0.0-3.0) 09/02/18 19:50 ABG O2 Capacity 17.0 mL/dl (16-24) 09/02/18 19:50 VBG pH 7.47 (7.32-7.43) H 09/02/18 22:46 VBG pCO2 32.0 (40-60) L 09/02/18 22:46 VBG HCO3 23.3 mmol/l (21-28) 09/02/18 22:46 VBG Total CO2 24.3 mmol.L (22-28) 09/02/18 22:46 VBG O2 Sat (Calc) 97.8 % (40-65) H 09/02/18 22:46 VBG Base Excess 0.3 mmol/L (0.0-2.0) 09/02/18 22:46 VBG Potassium 3.2 mmol/L (3.6-5.2) L 09/02/18 22:46 Hgb O2 Saturation 96.6 % (95.0-98.0) 09/02/18 19:50 Sodium 140.0 mmol/L (132-148) 09/02/18 22:46 Chloride 110.0 mmol/L (98-107) H 09/02/18 22:46 Glucose 124 mg/dl (75-110) H 09/02/18 22:46 Lactate 1.0 mmol/L (0.7-2.1) 09/02/18 22:46 FiO2 21.0 % 09/02/18 22:46 Crit Value Called To [facility] 09/02/18 19:25 Crit Value Called By [facility] 09/02/18 19:25 Blood Gas Notified Time 192909/02/18 19:25 Sodium 137 mmol/L (132-148) 09/04/18 06:50 Potassium 3.8 mmol/L (3.6-5.0) 09/04/18 06:50 Chloride 106 mmol/L (98-107) 09/04/18 06:50 Carbon Dioxide 26 mmol/L (21-33) 09/04/18 06:50 Anion Gap 9 (10-20) L 09/04/18 06:50 BUN 24 mg/dL (7-21) H 09/04/18 06:50 Creatinine 0.8 mg/dl (0.8-1.5) 09/04/18 06:50 Est GFR ( Amer) > 60 09/04/18 06:50 Est GFR (Non-Af Amer) > 60 09/04/18 06:50 Random Glucose 94 mg/dL (70-110) 09/04/18 06:50 Calcium 7.8 mg/dL (8.4-10.5) L 09/04/18 06:50 Phosphorus 3.6 mg/dL (2.5-4.5) 09/03/18 07:55 Magnesium 1.9 mg/dL (1.7-2.2) 09/03/18 07:55 Iron 20 ug/dL (45-180) L 09/03/18 07:55 TIBC 234 ug/dL (261-462) L 09/03/18 07:55 % Saturation 9 % (20-55) L 09/03/18 07:55 Ferritin 112.0 ng/mL 09/03/18 07:55 Total Bilirubin 0.8 mg/dL (0.2-1.3) 09/04/18 06:50 AST 30 U/L (17-59) 09/04/18 06:50 ALT 19 U/L (7-56) 09/04/18 06:50 Alkaline Phosphatase 57 U/L (38-126) 09/04/18 06:50 Lactate Dehydrogenase 417 U/L (333-699) 09/02/18 20:39 Total Creatine Kinase 36 U/L (35-230) 09/02/18 20:39 Troponin I 0.03 ng/mL 09/02/18 20:39 NT-Pro-B Natriuret Pep 1270 pg/mL (0-450) H 09/02/18 19:05 Total Protein 5.5 g/dL (5.8-8.3) L 09/04/18 06:50 Albumin 2.4 g/dL (3.0-4.8) L 09/04/18 06:50 Globulin 3.1 gm/dL 09/04/18 06:50 Albumin/Globulin Ratio 0.8 (1.1-1.8) L 09/04/18 06:50 Prostate Specific Ag 3.6 ng/mL (0-4.0) 09/04/18 06:50 Vitamin B12 517 pg/mL (239-931) 09/03/18 07:55 Folate 9.1 ng/mL 09/03/18 07:55 Procalcitonin 17.60 NG/ML (0.19-0.49) H 09/03/18 05:21 Venous Blood Potassium 3.2 mmol/L (3.6-5.2) L 09/02/18 22:46 Urine Color Yellow (YELLOW) 09/02/18 19:20 Urine Appearance Cloudy (CLEAR) 09/02/18 19:20 Urine pH 7.0 (4.7-8.0) 09/02/18 19:20 Ur Specific [place] 1.020 (1.005-1.035) 09/02/18 19:20 Urine Protein Trace mg/dL (<30 mg/dL) H 09/02/18 19:20 Urine Glucose (UA) Negative mg/dL (NEGATIVE) 09/02/18 19:20 Urine Ketones Negative mg/dL (NEGATIVE) 09/02/18 19:20 Urine Blood Moderate (NEGATIVE) H 09/02/18 19:20 Urine Nitrate Positive (NEGATIVE) H 09/02/18 19:20 Urine Bilirubin Negative (NEGATIVE) 09/02/18 19:20 Urine Urobilinogen 0.2 E.U./dL (<1 E.U./dL) 09/02/18 19:20 Ur Leukocyte Esterase Large Kain/uL (NEGATIVE) H 09/02/18 19:20 Urine RBC 2 - 5 /hpf (0-2) H 09/02/18 19:20 Urine WBC Tntc /hpf (0-6) H 09/02/18 19:20 Ur Epithelial Cells 1 - 3 /hpf (0-5) 09/02/18 19:20 Urine Bacteria Many /hpf (NONE) 09/02/18 19:20 Influenza Typ A,B (EIA) Negative for flu a/b (NEGATIVE) 09/03/18 15:09 Ur L.pneumophila Ag Negative (NEGATIVE) 09/05/18 06:28 - Hospital Course Hospital Course: Patient is an 88 y/o with PMHx of atrial fibrillation on Coumadin, CVA with left sided paresis, DVT, htn, and dementia brought in by his son due to chills. Patient was found to have temp of 103.5, ua revealed UTI. Patient was placed on Rocephin. Blood culture and urine culture revealed proteus mirabilis. The organism was sensitive to merrem, thus patient patient is to be discharged to [facility] to continue with merrem for 10-14 days. Patient was also found to have iron deficiency anemia, and received IV iron for 2 days. Will resume po iron in skilled nursing. Patient might need colonoscopy. Patient's Coumadin decreased to 3 mg due to INR. Discharge diet: 2 gram sodium, heart healthy Activity: resume baseline activity as tolerated. - Date & Time of H&P Date of H&P: 09/03/18 Time of H&P: 06:55 Discharge Exam - Head Exam Head Exam: ATRAUMATIC, NORMAL INSPECTION, NORMOCEPHALIC Additional comments: Please see the progress note for full physical exam. Discharge Plan - Discharge Medications Prescriptions: Ferrous Sulfate 325 mg PO DAILY 30 Days #30 tablet Meropenem IV 1 gm in NS [Merrem IV 1 gm Premix] 1 gm IVPB Q8 10 Days #30 bag - Follow Up Plan Condition: STABLE Disposition: TRANSF TO SNF Instructions: Stroke, Sepsis (ED) Additional Instructions: Patient to continue with merrem for 10 to 14 days Continue with warfarin 3 mg daily, check INR weekly Resume the rest of home medications Follow up with primary care doctor for your anemia Please return if the symptoms return or call 911. Referrals: PCP,NO [Primary Care Provider] - <Andrey Valdez - Last Filed: 09/06/18 20:36> Provider - Provider Date of Admission: 09/02/18 20:55 Attending physician: Andrey Valdez MD Primary care physician: NO PRIMARY CARE PROVIDER Consults: 09/02/18 21:02 Infectious Disease Consult Stat Comment: Consulting Provider: Ranulfo Blanchard Consulting Physician: Ranulfo Blanchard Reason for Consult: sepsis/PNA Hospital Course - Lab Results Lab Results: Micro Results 09/04/18 10:00 Blood-Venous Blood Culture - Preliminary NO GROWTH AFTER 48 HOURS 09/04/18 09:30 Blood-Venous Blood Culture - Preliminary NO GROWTH AFTER 48 HOURS 09/02/18 19:20 Blood Blood Culture - Final Proteus Mirabilis 09/02/18 19:20 Blood Gram Stain - Final 09/02/18 19:05 Blood Blood Culture - Final Proteus Mirabilis 09/02/18 19:05 Blood Gram Stain - Final 09/02/18 19:20 Urine Random Urine Culture - Final Proteus Mirabilis Most Recent Lab Values WBC 6.1 10^3/uL (4.5-11.0) D 09/04/18 06:50 RBC 3.40 10^6/uL (3.5-6.1) L 09/04/18 06:50 Hgb 10.0 g/dL (14.0-18.0) L 09/04/18 06:50 Hct 31.3 % (42.0-52.0) L 09/04/18 06:50 MCV 92.1 fl (80.0-105.0) 09/04/18 06:50 MCH 29.4 pg (25.0-35.0) 09/04/18 06:50 MCHC 31.9 g/dl (31.0-37.0) 09/04/18 06:50 RDW 14.6 % (11.5-14.5) H 09/04/18 06:50 Plt Count 134 10^3/uL (120.0-450.0) 09/04/18 06:50 MPV 8.8 fl (7.0-11.0) 09/04/18 06:50 Neut % (Auto) 74.9 % (50.0-68.0) H 09/04/18 06:50 Lymph % (Auto) 15.5 % (22.0-35.0) L 09/04/18 06:50 [place] % (Auto) 7.4 % (1.0-6.0) H 09/04/18 06:50 Eos % (Auto) 2.0 % (1.5-5.0) 09/04/18 06:50 Baso % (Auto) 0.2 % (0.0-3.0) 09/04/18 06:50 Lymph # (Auto) 0.9 (1.2-3.4) L 09/04/18 06:50 [place] # (Auto) 0.5 (0.1-0.6) 09/04/18 06:50 Eos # (Auto) 0.1 (0.0-0.7) 09/04/18 06:50 Baso # (Auto) 0.01 K/mm3 (0.0-2.0) 09/04/18 06:50 Absolute Neuts (auto) 4.55 (1.4-6.5) 09/04/18 06:50 Neutrophils % (Manual) 89 % (50.0-70.0) H 09/02/18 19:05 Lymphocytes % (Manual) 9 % (22.0-35.0) L 09/02/18 19:05 Monocytes % (Manual) 1 % (1.0-6.0) 09/02/18 19:05 Basophils % (Manual) 1 % (0.0-1.0) 09/02/18 19:05 PT 28.2 SECONDS (9.4-12.5) H 09/05/18 07:00 INR 2.50 09/05/18 07:00 APTT 66.9 Seconds (26.9-38.3) H 09/02/18 19:05 pCO2 29 mm/Hg (35-45) L 09/02/18 19:50 pO2 83 mm/Hg (30-55) H 09/02/18 22:46 HCO3 20.6 mmol/L (21-28) L 09/02/18 19:50 ABG pH 7.46 (7.35-7.45) H 09/02/18 19:50 ABG Total CO2 21.5 mmol.L (22-28) L 09/02/18 19:50 ABG O2 Saturation 98.7 % (95-98) H 09/02/18 19:50 ABG O2 Content 16.8 ML/dl (15-23) 09/02/18 19:50 ABG Base Excess -2.2 mmol/L (-2.0-3.0) L 09/02/18 19:50 ABG Hemoglobin 12.1 g/dL (11.7-17.4) 09/02/18 19:50 ABG Carboxyhemoglobin 1.1 % (0.5-1.5) 09/02/18 19:50 POC ABG HHb (Measured) 1.3 % (0-5) 09/02/18 19:50 ABG Methemoglobin 0.9 % (0.0-3.0) 09/02/18 19:50 ABG O2 Capacity 17.0 mL/dl (16-24) 09/02/18 19:50 VBG pH 7.47 (7.32-7.43) H 09/02/18 22:46 VBG pCO2 32.0 (40-60) L 09/02/18 22:46 VBG HCO3 23.3 mmol/l (21-28) 09/02/18 22:46 VBG Total CO2 24.3 mmol.L (22-28) 09/02/18 22:46 VBG O2 Sat (Calc) 97.8 % (40-65) H 09/02/18 22:46 VBG Base Excess 0.3 mmol/L (0.0-2.0) 09/02/18 22:46 VBG Potassium 3.2 mmol/L (3.6-5.2) L 09/02/18 22:46 Hgb O2 Saturation 96.6 % (95.0-98.0) 09/02/18 19:50 Sodium 140.0 mmol/L (132-148) 09/02/18 22:46 Chloride 110.0 mmol/L (98-107) H 09/02/18 22:46 Glucose 124 mg/dl (75-110) H 09/02/18 22:46 Lactate 1.0 mmol/L (0.7-2.1) 09/02/18 22:46 FiO2 21.0 % 09/02/18 22:46 Crit Value Called To [facility] 09/02/18 19:25 Crit Value Called By [facility] 09/02/18 19:25 Blood Gas Notified Time 19309/02/18 19:25 Sodium 137 mmol/L (132-148) 09/04/18 06:50 Potassium 3.8 mmol/L (3.6-5.0) 09/04/18 06:50 Chloride 106 mmol/L (98-107) 09/04/18 06:50 Carbon Dioxide 26 mmol/L (21-33) 09/04/18 06:50 Anion Gap 9 (10-20) L 09/04/18 06:50 BUN 24 mg/dL (7-21) H 09/04/18 06:50 Creatinine 0.8 mg/dl (0.8-1.5) 09/04/18 06:50 Est GFR ( Amer) > 60 09/04/18 06:50 Est GFR (Non-Af Amer) > 60 09/04/18 06:50 Random Glucose 94 mg/dL (70-110) 09/04/18 06:50 Calcium 7.8 mg/dL (8.4-10.5) L 09/04/18 06:50 Phosphorus 3.6 mg/dL (2.5-4.5) 09/03/18 07:55 Magnesium 1.9 mg/dL (1.7-2.2) 09/03/18 07:55 Iron 20 ug/dL (45-180) L 09/03/18 07:55 TIBC 234 ug/dL (261-462) L 09/03/18 07:55 % Saturation 9 % (20-55) L 09/03/18 07:55 Ferritin 112.0 ng/mL 09/03/18 07:55 Total Bilirubin 0.8 mg/dL (0.2-1.3) 09/04/18 06:50 AST 30 U/L (17-59) 09/04/18 06:50 ALT 19 U/L (7-56) 09/04/18 06:50 Alkaline Phosphatase 57 U/L (38-126) 09/04/18 06:50 Lactate Dehydrogenase 417 U/L (333-699) 09/02/18 20:39 Total Creatine Kinase 36 U/L (35-230) 09/02/18 20:39 Troponin I 0.03 ng/mL 09/02/18 20:39 NT-Pro-B Natriuret Pep 1270 pg/mL (0-450) H 09/02/18 19:05 Total Protein 5.5 g/dL (5.8-8.3) L 09/04/18 06:50 Albumin 2.4 g/dL (3.0-4.8) L 09/04/18 06:50 Globulin 3.1 gm/dL 09/04/18 06:50 Albumin/Globulin Ratio 0.8 (1.1-1.8) L 09/04/18 06:50 Prostate Specific Ag 3.6 ng/mL (0-4.0) 09/04/18 06:50 Vitamin B12 517 pg/mL (239-931) 09/03/18 07:55 Folate 9.1 ng/mL 09/03/18 07:55 Procalcitonin 17.60 NG/ML (0.19-0.49) H 09/03/18 05:21 Venous Blood Potassium 3.2 mmol/L (3.6-5.2) L 09/02/18 22:46 Urine Color Yellow (YELLOW) 09/02/18 19:20 Urine Appearance Cloudy (CLEAR) 09/02/18 19:20 Urine pH 7.0 (4.7-8.0) 09/02/18 19:20 Ur Specific [place] 1.020 (1.005-1.035) 09/02/18 19:20 Urine Protein Trace mg/dL (<30 mg/dL) H 09/02/18 19:20 Urine Glucose (UA) Negative mg/dL (NEGATIVE) 09/02/18 19:20 Urine Ketones Negative mg/dL (NEGATIVE) 09/02/18 19:20 Urine Blood Moderate (NEGATIVE) H 09/02/18 19:20 Urine Nitrate Positive (NEGATIVE) H 09/02/18 19:20 Urine Bilirubin Negative (NEGATIVE) 09/02/18 19:20 Urine Urobilinogen 0.2 E.U./dL (<1 E.U./dL) 09/02/18 19:20 Ur Leukocyte Esterase Large [place]/uL (NEGATIVE) H 09/02/18 19:20 Urine RBC 2 - 5 /hpf (0-2) H 09/02/18 19:20 Urine WBC Tntc /hpf (0-6) H 09/02/18 19:20 Ur Epithelial Cells 1 - 3 /hpf (0-5) 09/02/18 19:20 Urine Bacteria Many /hpf (NONE) 09/02/18 19:20 Influenza Typ A,B (EIA) Negative for flu a/b (NEGATIVE) 09/03/18 15:09 Ur L.pneumophila Ag Negative (NEGATIVE) 09/05/18 06:28 - Hospital Course Hospital Course: Pt seen and examined by me. I have reviewed the note of the biomedical repair technician and I agree with it. I have discussed the assessment and plan with the resident. I have reviewed the medications and the last labs.
--- NOTE | 2018-09-07 00:56 | DS ---
HOSPITAL COURSE: This is a late entry. The patient was discharged to subacute rehab. He is going to be followed up there. He has atrial fibrillation, on Coumadin. He has dementia. He has a difficult time ambulating. He is going to continue with his meropenem for 10 to 14 days. He has been given IV iron for deficiency. Andrey Valdez MD
== END 2018-09-05 21:15 | DRG 872 ==
LOC: ED 18:44 → ERH 20:55 → 2RNO 22:17 → 5RSO 09-04 01:04
PROVIDERS: ADMIT Internal Medicine Nephrology; ATTEND Internal Medicine Nephrology
DX: A41.59 Other Gram-negative sepsis (principal); N39.0 Urinary tract infection, site not specified; I69.354 Hemiplegia and hemiparesis following cerebral infarction affecting left non-dominant side; E87.4 Mixed disorder of acid-base balance; E87.3 Alkalosis; E87.2 Acidosis; I48.91 Unspecified atrial fibrillation; I11.0 Hypertensive heart disease with heart failure; F03.90 Unspecified dementia, unspecified severity, without behavioral disturbance, psychotic disturbance, mood disturbance, and anxiety; E03.9 Hypothyroidism, unspecified; Z79.01 Long term (current) use of anticoagulants; E11.51 Type 2 diabetes mellitus with diabetic peripheral angiopathy without gangrene; D50.9 Iron deficiency anemia, unspecified; B96.4 Proteus (mirabilis) (morganii) as the cause of diseases classified elsewhere; E78.5 Hyperlipidemia, unspecified; I50.9 Heart failure, unspecified; K59.00 Constipation, unspecified; R65.20 Severe sepsis without septic shock; Z86.718 Personal history of other venous thrombosis and embolism; Z87.01 Personal history of pneumonia (recurrent); Z87.891 Personal history of nicotine dependence; Z90.49 Acquired absence of other specified parts of digestive tract; Z95.828 Presence of other vascular implants and grafts; M24.542 Contracture, left hand

== ENCOUNTER 2018-10-10 11:49 | Inpatient (IN) | payer MEDICARE, BC ==
[2018-10-10 11:57] VITALS: BMI 22.4
[2018-10-10] MEDS ORDERED: Sodium Chloride 0.9% 1,000 ML IV ONE (13:00)
--- NOTE | 2018-10-10 13:14 | ED PDOC ---
Arrival/HPI - General Chief Complaint: GI Problem Time Seen by Provider: 10/10/18 12:38 Historian: Patient, Caregiver - History of Present Illness Narrative History of Present Illness (Text): 10/10/18 12:38 Gopi Perkins is an 88 year old male, with a past medical history of (stroke w/left sided weakness), hypertension (on lisinopril), a-fib (on warfarin), brought to the emergency department by EMS for failure to thrive, generalized weakness, and unresponsiveness since yesterday. Patient states he "doesn't feel well". Per caregiver, patient appreciated fever, chills, decreased appetite, and vomiting yesterday. Caregiver also informs of difficulty getting patient out of bed. Patient lives with his son and daughter in-law. Patient denies fall / trauma, headache, dizziness, dysuria, chest pain, shortness of breath, abdominal pain, nausea, diarrhea, dysuria, hematuria, back pain, neck pain, or any other complaint. Time/Duration: 24 hours Symptom Onset: Sudden Symptom Course: Unchanged Activities at Onset: Light Context: Home Past Medical History - Provider Review Nursing Documentation Reviewed: Yes Primary Care Provider: Jefry Tineo - Infectious Disease Hx of Infectious Diseases: None - Tetanus Immunization Tetanus Immunization: Unknown - Cardiac Hx Pacemaker: No - Pulmonary Hx Respiratory Disorders: No - Neurological HX Cerebrovascular Accident: Yes (L sided weakness secondary to R MCA) - HEENT Hx HEENT Disorder: No - Renal Hx Renal Disorder: No - Endocrine/Metabolic Hx Endocrine Disorders: Yes Hx Diabetes Mellitus Type 1: Yes - Hematological/Oncological Hx Cancer: No - Integumentary Hx Dermatological Disorder: No - Musculoskeletal/Rheumatological Hx Musculoskeletal Disorders: Yes Hx Falls: Yes - Gastrointestinal Hx Gastrointestinal Disorders: No - Genitourinary/Gynecological Hx Genitourinary Disorders: No - Psychiatric Hx Psychophysiologic Disorder: No Hx Substance Use: No - Surgical History Hx Mastectomy: No - Anesthesia Hx Anesthesia: Yes Hx Anesthesia Reactions: No Hx Malignant Hyperthermia: No Family/Social History - Physician Review Nursing Documentation Reviewed: Yes Family/Social History: Unknown Family HX Smoking Status: Never Smoked Hx Alcohol Use: No Hx Substance Use: No Allergies/Home Meds Allergies/Adverse Reactions: Allergies No Known Allergies Allergy (Verified 10/10/18 11:58) Home Medications: Home Meds Medication Instructions Recorded Confirmed Donepezil [Aricept] 5 mg PO DAILY 09/03/18 10/10/18 Review of Systems - Physician Review All systems were reviewed & negative as marked: Yes - Review of Systems Constitutional: Fevers, Other (failure to thrive, generalized weakness, chills) Gastrointestinal: Nausea, Vomiting, Appetite Changes (decreased appetite). absent: Abdominal Pain Genitourinary Male: absent: Dysuria Musculoskeletal: absent: Back Pain, Neck Pain, Other (fall / trauma) Neurological: absent: Headache, Dizziness Psychiatric: Other (unresponsive per caregiver) Physical Exam Vital Signs Reviewed: Yes Vital Signs Temp Pulse Resp BP Pulse Ox 10/10/18 11:49 98.4 F 72 18 101/65 96 Temperature: Afebrile Blood Pressure: Normal Pulse: Regular Respiratory Rate: Normal Appearance: Positive for: Ill-Appearing, Cachectic Pain Distress: None Mental Status: Positive for: Alert and Oriented X 3 - Systems Exam Head: Present: Atraumatic, Normocephalic Pupils: Present: PERRL Extroacular Muscles: Present: EOMI Conjunctiva: Present: Normal Mouth: Present: Moist Mucous Membranes Neck: Present: Normal Range of Motion Respiratory/Chest: Present: Clear to Auscultation, Good Air Exchange. No: Respiratory Distress, Accessory Muscle Use, Wheezes, Rales, Rhonchi Cardiovascular: Present: Regular Rate and Rhythm, Normal S1, S2. No: Murmurs, Rub, Gallop Abdomen: Present: Normal Bowel Sounds. No: Tenderness, Distention, Peritoneal Signs Back: Present: Normal Inspection Upper Extremity: Present: Other (left upper extremity weakness). No: Cyanosis, Edema Lower Extremity: Present: Other (left lower extremity weakness). No: Edema Neurological: Present: GCS=15, CN II-XII Intact, Speech Normal Skin: Present: Warm, Dry, Normal Color. No: Rashes Psychiatric: Present: Alert, Oriented x 3, Normal Insight, Normal Concentration Medical Decision Making ED Course and Treatment: 10/10/18 12:38 Impression: Patient is an 88 year old male, with a past medical history of hypertension (on lisinopril), a-fib (warfarin), and stroke (w/ residual left sided weakness), brought by EMS to the emergency department for failure to thrive, generalized weakness, and unresponsiveness since yesterday. Plan: -- VBG -- EKG -- Chest X-Ray -- IV Fluids -- Urinalysis -- Reassess and disposition Prior Visits: Notes and results from previous visits were reviewed. Progress Notes: Labs done and UTI noted. Rocephin ivpb ordered. Case discussed with Dr. Valdez admitting for Dr. Tineo. Accepts patient for admission to his service. - RAD Interpretation Narrative RAD Interpretations (Text): 10/10/18 13:35 Chest X-Ray shows: IMPRESSION: Interstitial thickening in both lower lobes likely represents interstitial fibrosis. More confluent airspace disease in the left lower lobe may represent atelectasis/pneumonia. Background of COPD. Radiology Orders: 10/10/18 13:00 CHEST PORTABLE [RAD] Stat Social Professionals: Radiologist - Medication Orders Current Medication Orders: Sodium Chloride (Sodium Chloride 0.9%) 1,000 mls @ 2,000 mls/hr IV .Q30M ONE Stop: 10/10/18 13:29 - Scribe Statement The provider has reviewed the documentation as recorded by the Scribe Ryan Friedman All medical record entries made by the Scribe were at my direction and personally dictated by me. I have reviewed the chart and agree that the record accurately reflects my personal performance of the history, physical exam, medical decision making, and the department course for this patient. I have also personally directed, reviewed, and agree with the discharge instructions and disposition. Disposition/Present on Arrival - Present on Arrival Any Indicators Present on Arrival: No History of DVT/PE: No History of Uncontrolled Diabetes: No Urinary Catheter: No History of Decub. Ulcer: No History Surgical Site Infection Following: None - Disposition Have Diagnosis and Disposition been Completed?: Yes Diagnosis: UTI (urinary tract infection), Failure to thrive Disposition: HOSPITALIZED Disposition Time: 18:13 Patient Problems: Current Active Problems Problem Status Onset Failure to thrive Acute UTI (urinary tract infection) Acute Condition: STABLE
--- NOTE | 2018-10-10 13:39 | RAD ---
Date of service: 10/10/2018 HISTORY: Sepsis Patient COMPARISON: 09/02/2018. FINDINGS: LUNGS: The lungs are hyperinflated and there is peribronchial thickening with chronic changes in both lungs. There is interstitial thickening in both lower lobes. There is apparent confluent airspace disease in the left lower lobe. PLEURA: No pleural effusions or pneumothorax. CARDIOVASCULAR: There is moderate cardiomegaly. There are aortic atherosclerotic calcifications present. OSSEOUS STRUCTURES: Within normal limits for the patient's age. VISUALIZED UPPER ABDOMEN: Normal. OTHER FINDINGS: None. IMPRESSION: Interstitial thickening in both lower lobes likely represents interstitial fibrosis. More confluent airspace disease in the left lower lobe may represent atelectasis/pneumonia. Background of COPD.
[2018-10-10 13:53] LABS: HEMOGLOBIN 11.3 g/dL (14.0-18.0); LYMPH # 1.1 (1.2-3.4); LYMPH % 8.4 % (22.0-35.0); MEAN CORPUSCULAR HEMOGLOBIN 30.2 pg (25.0-35.0); MEAN CORPUSCULAR HGB CONC 32.8 g/dl (31.0-37.0); MONO # 1.1 (0.1-0.6); MONO % 8.8 % (1.0-6.0); RBC 3.74 10^6/uL (3.5-6.1); RED CELL DISTRIBUTION WIDTH 14.6 % (11.5-14.5); WHITE BLOOD COUNT 12.9 10^3/uL (4.5-11.0)
[2018-10-10 13:57] LABS: ALBUMIN 3.3 g/dL (3.0-4.8); ALT/SGPT 12 U/L (7-56); AST/SGOT 21 U/L (17-59); BLOOD UREA NITROGEN 28 mg/dL (7-21); CALCIUM 8.4 mg/dL (8.4-10.5); GFR NON-AFRICAN AMERICAN 52
[2018-10-10 13:58] LABS: INR 2.71; PARTIAL THROMBOPLASTIN TIME 91.9 Seconds (26.9-38.3); PROTHROMBIN TIME 30.6 SECONDS (9.4-12.5)
[2018-10-10 14:01] LABS: VENOUS BLOOD GAS BASE EXCESS 2.6 mmol/L (0.0-2.0); VENOUS BLOOD GAS PO2 31 mm/Hg (30-55); VENOUS BLOOD PH 7.43 (7.32-7.43)
[2018-10-10 17:33] LABS: URINE APPEARANCE SLIGHT-CLOUDY (CLEAR); URINE BILIRUBIN NEGATIVE (NEGATIVE); URINE BLOOD LARGE (NEGATIVE); URINE COLOR DARK YELLOW (YELLOW); URINE GLUCOSE (UA) NEGATIVE (NEGATIVE); URINE LEUKOCYTE ESTERASE MODERATE Leu/uL (NEGATIVE); URINE PROTEIN 30 mg/dL (<30 mg/dL); URINE UROBILINOGEN 0.2 E.U./dL (<1 E.U./dL)
[2018-10-10 17:51] LABS: URINE BACTERIA FEW /hpf; URINE RBC 25 - 30 /hpf (0-2)
[2018-10-10] MEDS ORDERED: cefTRIAXone 1 gm 1 GM/100 ML BAG IVPB ONE (18:15)
--- NOTE | 2018-10-10 21:01 | CARD ---
APPROVED REPORT Date of service: 10/10/2018 EKG Measurement Heart [id number] <Conclusion> Sinus rhythm with sinus arrhythmia with 1st degree AV block Left axis deviation Left bundle branch block Abnormal ECG
[2018-10-11 08:25] LABS: BASO # 0.02 K/mm3 (0.0-2.0); BASO % 0.2 % (0.0-3.0); EOS % 0.2 % (1.5-5.0); HEMOGLOBIN 10.5 g/dL (14.0-18.0); LYMPH # 1.1 (1.2-3.4); LYMPH % 13.1 % (22.0-35.0); MEAN CELL VOLUME 90.8 fl (80.0-105.0); MEAN CORPUSCULAR HEMOGLOBIN 30.3 pg (25.0-35.0); MEAN CORPUSCULAR HGB CONC 33.4 g/dl (31.0-37.0); MEAN PLATELET VOLUME 8.6 fl (7.0-11.0); MONO # 0.6 (0.1-0.6); MONO % 7.8 % (1.0-6.0); RBC 3.46 10^6/uL (3.5-6.1); RED CELL DISTRIBUTION WIDTH 14.7 % (11.5-14.5); WHITE BLOOD COUNT 8.2 10^3/uL (4.5-11.0)
[2018-10-11 08:31] LABS: INR 3.3; PROTHROMBIN TIME 37.3 SECONDS (9.4-12.5)
[2018-10-11 08:34] LABS: IRON 20 ug/dL (45-180)
[2018-10-11 08:41] LABS: ALT/SGPT 16 U/L (7-56); AST/SGOT 21 U/L (17-59); BLOOD UREA NITROGEN 30 mg/dL (7-21); CALCIUM 8.1 mg/dL (8.4-10.5); GFR NON-AFRICAN AMERICAN > 60
[2018-10-11 08:43] LABS: % IRON SATURATION 9 % (20-55); TOTAL IRON BINDING CAPACITY 218 ug/dL (261-462)
--- NOTE | 2018-10-11 08:58 | CP.PCM.HP ---
<Mc Irwin - Last Filed: 10/11/18 12:37> History of Present Illness - History of Present Illness History of Present Illness: H&P for Dr Valdez Service CC: Fever, nausea, vomiting, poor appetite HPI:88 M with a PMHx of atrial fibrillation on Coumadin, CVA with residual left sided weakness, hx of DVT, HTN, and dementia presented to the [facility] with concerns of failure to thrive with associated fever, nausea, vomiting, and poor oral intake. Patient states that his symptoms began yesterday morning. As per ED, patient/family states that he had been feeling symptoms of generalized weakness, and unresponsiveness since yesterday. As per caregiver, patient was complaining of a subjective fever, chills, decreased appetite, and vomiting yesterday. Caregiver also informs of difficulty getting patient out of bed. Patient lives with his son and daughter in-law. Patient denies fall / trauma, headache, dizziness, dysuria, chest pain, shortness of breath, abdominal pain, nausea, diarrhea, dysuria, hematuria, back pain, neck pain, or any other complaint. Patient was seen and examined at bedside. Patient states he is feeling better, without nausea, vomiting or fever overnight as per nursing staff. Patient is hungry this morning and would like to eat. PMHx: Afib on coumadin, HLD, CVA with L hand contracture, hemangioma L frontal lobe, LLE DVT s/p IVC filter, HTN, amd mild dementia PSHx: appendectomy and tonsillectomy, IVC filter in 2016. FMHx: non contributory SHx: former tobacco, denies alcohol or illicit drug use. Ambulates with cane and walker Home Meds: MAR reviewed Allergies: NKDA PMD: Dr. Tineo Present on Admission - Present on Admission Any Indicators Present on Admission: Yes History of DVT/PE: Yes Review of Systems - Review of Systems Review of Systems: as per HPI otherwise negative Past Patient History - Infectious Disease Hx of Infectious Diseases: None - Tetanus Immunizations Tetanus Immunization: Unknown - Past Medical History & Family History Past Medical History?: Yes - Past Social History Smoking Status: Never Smoked - CARDIAC Hx Pacemaker: No - PULMONARY Hx Respiratory Disorders: No - NEUROLOGICAL HX Cerebrovascular Accident: Yes (L sided weakness secondary to R MCA) - HEENT Hx HEENT Problems: No - RENAL Hx Chronic Kidney Disease: No - ENDOCRINE/METABOLIC Hx Endocrine Disorders: Yes Hx Diabetes Mellitus Type 1: Yes - HEMATOLOGICAL/ONCOLOGICAL Hx Cancer: No - INTEGUMENTARY Hx Dermatological Problems: No - MUSCULOSKELETAL/RHEUMATOLOGICAL Hx Musculoskeletal Disorders: Yes Hx Falls: Yes - GASTROINTESTINAL Hx Gastrointestinal Disorders: No - GENITOURINARY/GYNECOLOGICAL Hx Genitourinary Disorders: No - PSYCHIATRIC Hx Psychophysiologic Disorder: No - SURGICAL HISTORY Hx Mastectomy: No - ANESTHESIA Hx Anesthesia: Yes Hx Anesthesia Reactions: No Hx Malignant Hyperthermia: No Meds Allergies/Adverse Reactions: Allergies Allergy/AdvReac Type Severity Reaction Status Date / Time No Known Allergies Allergy Verified 10/10/18 11:58 Physical Exam - Constitutional Appears: No Acute Distress - Head Exam Head Exam: ATRAUMATIC, NORMAL INSPECTION, NORMOCEPHALIC - Eye Exam Eye Exam: EOMI, Normal appearance, PERRL Pupil Exam: NORMAL ACCOMODATION, PERRL - ENT Exam ENT Exam: Mucous Membranes Dry - Respiratory Exam Respiratory Exam: Clear to Auscultation Bilateral, NORMAL BREATHING PATTERN - Cardiovascular Exam Cardiovascular Exam: Irregular Rhythm, +S1, +S2 - GI/Abdominal Exam GI & Abdominal Exam: Normal Bowel Sounds, Soft. absent: Tenderness - Extremities Exam Additional comments: LUE contracture - Neurological Exam Neurological exam: Alert, CN II-XII Intact, Oriented x3, Reflexes Normal Results - Vital Signs Recent Vital Signs: Last Vital Signs Temp 99.3 F 10/11/18 06:00 Pulse 69 10/11/18 06:00 Resp 18 10/11/18 06:00 BP 119/61 10/11/18 06:00 Pulse Ox 92 L 10/11/18 06:00 - Labs Result Diagrams: 10/11/18 08:00 10/11/18 08:00 Labs: Laboratory Results - last 24 hr 10/10/18 10/10/18 10/10/18 13:23 13:23 13:23 WBC 12.9 H D RBC 3.74 Hgb 11.3 L Hct 34.4 L MCV 92.0 MCH 30.2 MCHC 32.8 RDW 14.6 H Plt Count 154 MPV 9.0 Neut % (Auto) 82.8 H Lymph % (Auto) 8.4 L Ritchie % (Auto) 8.8 H Eos % (Auto) 0.0 L Baso % (Auto) 0.0 Lymph # (Auto) 1.1 L Ritchie # (Auto) 1.1 H Eos # (Auto) 0.0 Baso # (Auto) 0.00 Absolute Neuts (auto) 10.66 H PT 30.6 H INR 2.71 APTT 91.9 H pO2 VBG pH VBG pCO2 VBG HCO3 VBG Total CO2 VBG O2 Sat (Calc) VBG Base Excess VBG Potassium Glucose Lactate FiO2 Sodium 136 Potassium 4.1 Chloride 102 Carbon Dioxide 25 Anion Gap 13 BUN 28 H Creatinine 1.3 Est GFR ( Amer) > 60 Est GFR (Non-Af Amer) 52 Random Glucose 115 H Calcium 8.4 Phosphorus 3.6 Magnesium 2.1 Iron TIBC % Saturation Total Bilirubin 1.3 AST 21 ALT 12 Alkaline Phosphatase 65 Total Protein 6.6 Albumin 3.3 Globulin 3.3 Albumin/Globulin Ratio 1.0 L Venous Blood Potassium Urine Color Urine Appearance Urine pH Ur Specific [place] Urine Protein Urine Glucose (UA) Urine Ketones Urine Blood Urine Nitrate Urine Bilirubin Urine Urobilinogen Ur Leukocyte Esterase Urine RBC Urine WBC Ur Epithelial Cells Urine Bacteria 10/10/18 10/10/18 10/11/18 13:50 17:11 08:00 WBC 8.2 D RBC 3.46 L Hgb 10.5 L Hct 31.4 L MCV 90.8 MCH 30.3 MCHC 33.4 RDW 14.7 H Plt Count 133 MPV 8.6 Neut % (Auto) 78.7 H Lymph % (Auto) 13.1 L Ritchie % (Auto) 7.8 H Eos % (Auto) 0.2 L Baso % (Auto) 0.2 Lymph # (Auto) 1.1 L [place]itchie # (Auto) 0.6 Eos # (Auto) 0.0 Baso # (Auto) 0.02 Absolute Neuts (auto) 6.46 PT INR APTT pO2 31 VBG pH 7.43 VBG pCO2 41.0 VBG HCO3 27.2 VBG Total CO2 28.5 H VBG O2 Sat (Calc) 63.8 VBG Base Excess 2.6 H VBG Potassium 4.0 Glucose 121 H Lactate 1.6 FiO2 21.0 Sodium 135.0 Potassium Chloride 104.0 Carbon Dioxide Anion Gap BUN Creatinine Est GFR ( Amer) Est GFR (Non-Af Amer) Random Glucose Calcium Phosphorus Magnesium Iron TIBC % Saturation Total Bilirubin AST ALT Alkaline Phosphatase Total Protein Albumin Globulin Albumin/Globulin Ratio Venous Blood Potassium 4.0 Urine Color Dark yellow Urine Appearance Slight-cloudy Urine pH 6.0 Ur Specific [place] 1.025 Urine Protein 30 H Urine Glucose (UA) Negative Urine Ketones Negative Urine Blood Large H Urine Nitrate Negative Urine Bilirubin Negative Urine Urobilinogen 0.2 Ur Leukocyte Esterase Moderate H Urine RBC 25 - 30 H Urine WBC 10 - 15 H Ur Epithelial Cells None Urine Bacteria Few 10/11/18 10/11/18 10/11/18 08:00 08:00 08:00 WBC RBC Hgb Hct MCV MCH MCHC RDW Plt Count MPV Neut % (Auto) Lymph % (Auto) Ritchie % (Auto) Eos % (Auto) Baso % (Auto) Lymph # (Auto) Ritchie # (Auto) Eos # (Auto) Baso # (Auto) Absolute Neuts (auto) PT 37.3 H INR 3.30 APTT pO2 VBG pH VBG pCO2 VBG HCO3 VBG Total CO2 VBG O2 Sat (Calc) VBG Base Excess VBG Potassium Glucose Lactate FiO2 Sodium 136 Potassium 4.1 Chloride 102 Carbon Dioxide 26 Anion Gap 12 BUN 30 H Creatinine 1.1 Est GFR ( Amer) > 60 Est GFR (Non-Af Amer) > 60 Random Glucose 106 Calcium 8.1 L Phosphorus 3.1 Magnesium 2.1 Iron 20 L TIBC 218 L % Saturation 9 L Total Bilirubin 1.1 AST 21 ALT 16 Alkaline Phosphatase 63 Total Protein 6.1 Albumin 3.0 Globulin 3.1 Albumin/Globulin Ratio 1.0 L Venous Blood Potassium Urine Color Urine Appearance Urine pH Ur Specific [place] Urine Protein Urine Glucose (UA) Urine Ketones Urine Blood Urine Nitrate Urine Bilirubin Urine Urobilinogen Ur Leukocyte Esterase Urine RBC Urine WBC Ur Epithelial Cells Urine Bacteria Assessment & Plan - Assessment and Plan (Free Text) Assessment: GM+ Bacteremia UTI Leukocytosis improving Failure to thrive, improving Anemia Coagulopathy CVA with residual left sided weakness Afib on coumadin HTN IDDM COPD HLD Dementia Constipation Plan: Patient is comfortable AAOx3, is being treated with Rocephin for UTI. Blood cultures returned with GM+ bacteremia, likely contamination, will repeat. ID consulted, Dr. Blanchard, vancomycin and cefepime started. Patient is hungry and feeling better today. Patient anemic, on home ferrous sulfate, will continue, and work up possible contributing factors, Iron& TIBC, B12, folate, dilutional. Patient with Supratherapeutic INR in setting of antibiotic therapy, coumadin held. Chest Xray reviewed. Interstitial thickening in both lower lobes likely represents interstitial fibrosis. More confluent airspace disease in the left lower lobe may represent atelectasis/pneumonia, hx of COPD, will continue with duonebs. Continue lisinopril for HTN, ISS for DM, donepezil for dementia. <Andrey Valdez S - Last Filed: 10/11/18 19:47> Results - Vital Signs Recent Vital Signs: Last Vital Signs Temp 98.8 F 10/11/18 14:16 Pulse 69 10/11/18 06:00 Resp 18 10/11/18 06:00 BP 119/61 10/11/18 06:00 Pulse Ox 92 L 10/11/18 06:00 - Labs Result Diagrams: 10/11/18 08:00 10/11/18 08:00 Labs: Laboratory Results - last 24 hr 10/10/18 10/11/18 10/11/18 13:50 08:00 08:00 WBC 8.2 D RBC 3.46 L Hgb 10.5 L Hct 31.4 L MCV 90.8 MCH 30.3 MCHC 33.4 RDW 14.7 H Plt Count 133 MPV 8.6 Neut % (Auto) 78.7 H Lymph % (Auto) 13.1 L Ritchie % (Auto) 7.8 H Eos % (Auto) 0.2 L Baso % (Auto) 0.2 Lymph # (Auto) 1.1 L Ritchie # (Auto) 0.6 Eos # (Auto) 0.0 Baso # (Auto) 0.02 Absolute Neuts (auto) 6.46 PT 37.3 H INR 3.30 pO2 31 VBG pH 7.43 VBG pCO2 41.0 VBG HCO3 27.2 VBG Total CO2 28.5 H VBG O2 Sat (Calc) 63.8 VBG Base Excess 2.6 H VBG Potassium 4.0 Sodium 135.0 Chloride 104.0 Glucose 121 H Lactate 1.6 FiO2 21.0 Potassium Carbon Dioxide Anion Gap BUN Creatinine Est GFR ( Amer) Est GFR (Non-Af Amer) POC Glucose (mg/dL) Random Glucose Hemoglobin A1c Calcium Phosphorus Magnesium Iron TIBC % Saturation Ferritin Total Bilirubin AST ALT Alkaline Phosphatase Total Protein Albumin Globulin Albumin/Globulin Ratio Triglycerides Cholesterol LDL Cholesterol Direct HDL Cholesterol Vitamin B12 Folate Procalcitonin TSH 3rd Generation Venous Blood Potassium 4.0 10/11/18 10/11/18 10/11/18 08:00 08:00 09:07 WBC RBC Hgb Hct MCV MCH MCHC RDW Plt Count MPV Neut % (Auto) Lymph % (Auto) Ritchie % (Auto) Eos % (Auto) Baso % (Auto) Lymph # (Auto) Ritchie # (Auto) Eos # (Auto) Baso # (Auto) Absolute Neuts (auto) PT INR pO2 VBG pH VBG pCO2 VBG HCO3 VBG Total CO2 VBG O2 Sat (Calc) VBG Base Excess VBG Potassium Sodium 136 Chloride 102 Glucose Lactate FiO2 Potassium 4.1 Carbon Dioxide 26 Anion Gap 12 BUN 30 H Creatinine 1.1 Est GFR ( Amer) > 60 Est GFR (Non-Af Amer) > 60 POC Glucose (mg/dL) Random Glucose 106 Hemoglobin A1c Calcium 8.1 L Phosphorus 3.1 Magnesium 2.1 Iron 20 L TIBC 218 L % Saturation 9 L Ferritin 227.0 Total Bilirubin 1.1 AST 21 ALT 16 Alkaline Phosphatase 63 Total Protein 6.1 Albumin 3.0 Globulin 3.1 Albumin/Globulin Ratio 1.0 L Triglycerides 61 Cholesterol 104 L LDL Cholesterol Direct 58 HDL Cholesterol 32 Vitamin B12 446 Folate 9.2 Procalcitonin TSH 3rd Generation Venous Blood Potassium 10/11/18 10/11/18 10/11/18 09:07 09:07 11:30 WBC RBC Hgb Hct MCV MCH MCHC RDW Plt Count MPV Neut % (Auto) Lymph % (Auto) Ritchie % (Auto) Eos % (Auto) Baso % (Auto) Lymph # (Auto) Ritchie # (Auto) Eos # (Auto) Baso # (Auto) Absolute Neuts (auto) PT INR pO2 VBG pH VBG pCO2 VBG HCO3 VBG Total CO2 VBG O2 Sat (Calc) VBG Base Excess VBG Potassium Sodium Chloride Glucose Lactate FiO2 Potassium Carbon Dioxide Anion Gap BUN Creatinine Est GFR ( Amer) Est GFR (Non-Af Amer) POC Glucose (mg/dL) Random Glucose Hemoglobin A1c 5.3 Calcium Phosphorus Magnesium Iron TIBC % Saturation Ferritin Total Bilirubin AST ALT Alkaline Phosphatase Total Protein Albumin Globulin Albumin/Globulin Ratio Triglycerides Cholesterol LDL Cholesterol Direct HDL Cholesterol Vitamin B12 Folate Procalcitonin 0.63 H TSH 3rd Generation 2.83 Venous Blood Potassium 10/11/18 16:20 WBC RBC Hgb Hct MCV MCH MCHC RDW Plt Count MPV Neut % (Auto) Lymph % (Auto) Ritchie % (Auto) Eos % (Auto) Baso % (Auto) Lymph # (Auto) Ritchie # (Auto) Eos # (Auto) Baso # (Auto) Absolute Neuts (auto) PT INR pO2 VBG pH VBG pCO2 VBG HCO3 VBG Total CO2 VBG O2 Sat (Calc) VBG Base Excess VBG Potassium Sodium Chloride Glucose Lactate FiO2 Potassium Carbon Dioxide Anion Gap BUN Creatinine Est GFR ( Amer) Est GFR (Non-Af Amer) POC Glucose (mg/dL) 129 H Random Glucose Hemoglobin A1c Calcium Phosphorus Magnesium Iron TIBC % Saturation Ferritin Total Bilirubin AST ALT Alkaline Phosphatase Total Protein Albumin Globulin Albumin/Globulin Ratio Triglycerides Cholesterol LDL Cholesterol Direct HDL Cholesterol Vitamin B12 Folate Procalcitonin TSH 3rd Generation Venous Blood Potassium Assessment & Plan - Assessment and Plan (Free Text) Assessment: Pt seen and examined by me. I have reviewed the note of the medical lab assistant and I agree with it. I have discussed the assessment and plan with the resident. I have reviewed the medications and the last labs.
[2018-10-11 09:39] LABS: HDL CHOLESTEROL 32 mg/dL (29-60)
[2018-10-11] MEDS: POLYETHYLENE GLYCOL 3350 17 GM/Dose PACKET PO PRN (09:49)
[2018-10-11 09:50] LABS: LDL CHOLESTEROL 58 mg/dL (0-129)
[2018-10-11] MEDS: Vancomycin 750mg 750 MG/250 ML BAG IVPB SCH (12:09)
[2018-10-11] MEDS: Cefepime 1gm in NS 100ml 1 GM/100 ML BAG IVPB SCH ×2 (12:09→22:01)
--- NOTE | 2018-10-11 12:10 | CP.PCM.PCO ---
Additional Comments - Additional Comments Additional Comments: Pt is an 88 y.o. male w/ pmhx of atrial fibrillation on Coumadin, CVA with residual left sided weakness, hx of DVT, HTN, and dementia who presented in ED because of concerns of failure to thrive, subjective fever, nausea/vomiting and poor oral intake. ITS Impressions Chest X-Ray 10/10/18 13:00 IMPRESSION: Interstitial thickening in both lower lobes likely represents interstitial fibrosis. More confluent airspace disease in the left lower lobe may represent atelectasis/pneumonia. Laboratory Results - last 24 hr 10/10/18 10/10/18 10/10/18 13:23 13:23 13:23 WBC 12.9 H D RBC 3.74 Hgb 11.3 L Hct 34.4 L MCV 92.0 MCH 30.2 MCHC 32.8 RDW 14.6 H Plt Count 154 MPV 9.0 Neut % (Auto) 82.8 H Lymph % (Auto) 8.4 L Armstrong % (Auto) 8.8 H Eos % (Auto) 0.0 L Baso % (Auto) 0.0 Lymph # (Auto) 1.1 L Armstrong # (Auto) 1.1 H Eos # (Auto) 0.0 Baso # (Auto) 0.00 Absolute Neuts (auto) 10.66 H PT 30.6 H INR 2.71 APTT 91.9 H pO2 VBG pH VBG pCO2 VBG HCO3 VBG Total CO2 VBG O2 Sat (Calc) VBG Base Excess VBG Potassium Glucose Lactate FiO2 Sodium 136 Potassium 4.1 Chloride 102 Carbon Dioxide 25 Anion Gap 13 BUN 28 H Creatinine 1.3 Est GFR ( Amer) > 60 Est GFR (Non-Af Amer) 52 Random Glucose 115 H Calcium 8.4 Phosphorus 3.6 Magnesium 2.1 Iron TIBC % Saturation Total Bilirubin 1.3 AST 21 ALT 12 Alkaline Phosphatase 65 Total Protein 6.6 Albumin 3.3 Globulin 3.3 Albumin/Globulin Ratio 1.0 L Triglycerides Cholesterol LDL Cholesterol Direct HDL Cholesterol TSH 3rd Generation Venous Blood Potassium Urine Color Urine Appearance Urine pH Ur Specific [place] Urine Protein Urine Glucose (UA) Urine Ketones Urine Blood Urine Nitrate Urine Bilirubin Urine Urobilinogen Ur Leukocyte Esterase Urine RBC Urine WBC Ur Epithelial Cells Urine Bacteria 10/10/18 10/10/18 10/11/18 13:50 17:11 08:00 WBC 8.2 D RBC 3.46 L Hgb 10.5 L Hct 31.4 L MCV 90.8 MCH 30.3 MCHC 33.4 RDW 14.7 H Plt Count 133 MPV 8.6 Neut % (Auto) 78.7 H Lymph % (Auto) 13.1 L Armstrong % (Auto) 7.8 H Eos % (Auto) 0.2 L Baso % (Auto) 0.2 Lymph # (Auto) 1.1 L Armstrong # (Auto) 0.6 Eos # (Auto) 0.0 Baso # (Auto) 0.02 Absolute Neuts (auto) 6.46 PT INR APTT pO2 31 VBG pH 7.43 VBG pCO2 41.0 VBG HCO3 27.2 VBG Total CO2 28.5 H VBG O2 Sat (Calc) 63.8 VBG Base Excess 2.6 H VBG Potassium 4.0 Glucose 121 H Lactate 1.6 FiO2 21.0 Sodium 135.0 Potassium Chloride 104.0 Carbon Dioxide Anion Gap BUN Creatinine Est GFR ( Amer) Est GFR (Non-Af Amer) Random Glucose Calcium Phosphorus Magnesium Iron TIBC % Saturation Total Bilirubin AST ALT Alkaline Phosphatase Total Protein Albumin Globulin Albumin/Globulin Ratio Triglycerides Cholesterol LDL Cholesterol Direct HDL Cholesterol TSH 3rd Generation Venous Blood Potassium 4.0 Urine Color Dark yellow Urine Appearance Slight-cloudy Urine pH 6.0 Ur Specific [place] 1.025 Urine Protein 30 H Urine Glucose (UA) Negative Urine Ketones Negative Urine Blood Large H Urine Nitrate Negative Urine Bilirubin Negative Urine Urobilinogen 0.2 Ur Leukocyte Esterase Moderate H Urine RBC 25 - 30 H Urine WBC 10 - 15 H Ur Epithelial Cells None Urine Bacteria Few 10/11/18 10/11/18 10/11/18 08:00 08:00 08:00 WBC RBC Hgb Hct MCV MCH MCHC RDW Plt Count MPV Neut % (Auto) Lymph % (Auto) Armstrong % (Auto) Eos % (Auto) Baso % (Auto) Lymph # (Auto) Armstrong # (Auto) Eos # (Auto) Baso # (Auto) Absolute Neuts (auto) PT 37.3 H INR 3.30 APTT pO2 VBG pH VBG pCO2 VBG HCO3 VBG Total CO2 VBG O2 Sat (Calc) VBG Base Excess VBG Potassium Glucose Lactate FiO2 Sodium 136 Potassium 4.1 Chloride 102 Carbon Dioxide 26 Anion Gap 12 BUN 30 H Creatinine 1.1 Est GFR ( Amer) > 60 Est GFR (Non-Af Amer) > 60 Random Glucose 106 Calcium 8.1 L Phosphorus 3.1 Magnesium 2.1 Iron 20 L TIBC 218 L % Saturation 9 L Total Bilirubin 1.1 AST 21 ALT 16 Alkaline Phosphatase 63 Total Protein 6.1 Albumin 3.0 Globulin 3.1 Albumin/Globulin Ratio 1.0 L Triglycerides Cholesterol LDL Cholesterol Direct HDL Cholesterol TSH 3rd Generation Venous Blood Potassium Urine Color Urine Appearance Urine pH Ur Specific [place] Urine Protein Urine Glucose (UA) Urine Ketones Urine Blood Urine Nitrate Urine Bilirubin Urine Urobilinogen Ur Leukocyte Esterase Urine RBC Urine WBC Ur Epithelial Cells Urine Bacteria 10/11/18 10/11/18 09:07 09:07 WBC RBC Hgb Hct MCV MCH MCHC RDW Plt Count MPV Neut % (Auto) Lymph % (Auto) Armstrong % (Auto) Eos % (Auto) Baso % (Auto) Lymph # (Auto) Armstrong # (Auto) Eos # (Auto) Baso # (Auto) Absolute Neuts (auto) PT INR APTT pO2 VBG pH VBG pCO2 VBG HCO3 VBG Total CO2 VBG O2 Sat (Calc) VBG Base Excess VBG Potassium Glucose Lactate FiO2 Sodium Potassium Chloride Carbon Dioxide Anion Gap BUN Creatinine Est GFR ( Amer) Est GFR (Non-Af Amer) Random Glucose Calcium Phosphorus Magnesium Iron TIBC % Saturation Total Bilirubin AST ALT Alkaline Phosphatase Total Protein Albumin Globulin Albumin/Globulin Ratio Triglycerides 61 Cholesterol 104 L LDL Cholesterol Direct 58 HDL Cholesterol 32 TSH 3rd Generation 2.83 Venous Blood Potassium Urine Color Urine Appearance Urine pH Ur Specific [place] Urine Protein Urine Glucose (UA) Urine Ketones Urine Blood Urine Nitrate Urine Bilirubin Urine Urobilinogen Ur Leukocyte Esterase Urine RBC Urine WBC Ur Epithelial Cells Urine Bacteria Background of COPD. A/P: Bacteremia - repeat blood cx pending. ID on consult. On Cefepime/Vanco IV per ID recs Ucx pending Physical therapy pending Meds per MAR Will continue to follow
[2018-10-11] MEDS ORDERED: Albuterol-Ipratrop 3 mg / 0.5 (3 ml) UD IH PRN (12:41)
[2018-10-11 13:03] LABS: FOLATE 9.2 ng/mL
[2018-10-11] MEDS: Insulin Lispro (humaLOG) LOW Coverage SC SCH ×2 (17:47→22:00)
--- NOTE | 2018-10-11 23:45 | CON ---
DATE: 10/11/2018 The patient is seen in Room #571, Bed #2. CHIEF COMPLAINT: Positive blood cultures x1 day. 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 The patient was seen in the emergency room and failure to thrive, generalized weakness, and overall in poor condition. The patient did have fevers and chills, poor appetite, nausea and vomiting and no dysuria or frequency. No headaches and no abdominal pain. No back pain. 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 PAST SURGICAL HISTORY: Significant for appendectomy and tonsillectomy. ALLERGIES: THE PATIENT HAS NO KNOWN ALLERGIES. HOME MEDICATIONS: Medications at home are reviewed. PHYSICAL EXAMINATION: GENERAL: On exam, the patient is in bed. VITAL SIGNS: Temperature of 99.3 and blood pressure is 119/60, respiratory rate of 18, a heart rate of 66. HEENT: Examination of HEENT is unremarkable. NECK: Supple. LUNGS: Have decreased breath sounds. HEART: Normal S1, S2. ABDOMEN: Soft, nontender. LABORATORY DATA: The laboratory examination reveals a white count of 12,900, hemoglobin of 11, platelets of 154. Coagulation is noted and the chemistries reveal a BUN of 28, creatinine of 1.3. The patient's creatinine before that last month was 0.8. Urinalysis is noted as 10 to 15 WBC's, few bacteria. The patient had a chest x-ray which showed airspace in the left lower lobe. EKG showed a QTc of 492. History and physical examination written by is appreciated. ASSESSMENT AND PLAN: This is an 88-year-old male with weakness with a gram-positive cocci bacteremia in chains. Must rule out strep versus Enterococcus. The patient with healthcare-associated pneumonia, leukocytosis, and acute kidney injury. We will start the patient on vancomycin and Maxipime and repeat blood cultures, should have an echo, and we will make further recommendations. Ranuflo Blanchard MD
--- NOTE | 2018-10-12 00:24 | HP ---
DATE OF EXAM: 10/11/2018 HISTORY OF PRESENT ILLNESS: The patient was seen and examined. I do agree with the note of the bio medical technician. I was involved in the plan of care. The patient has come into the hospital because of fever, nausea, and vomiting. He currently lives with his son. He was recently discharged from [facility] after he was there for rehab and IV antibiotics. I did speak to ID, Dr. Blanchard regarding the case. The patient has failure to thrive. He is having difficulty ambulating. His blood cultures are positive for gram-positive bacteremia. He has atrial fibrillation. He is on Coumadin. He has hypertension. His medications from home will be continued. He has diabetes. He is on insulin sliding scale with coverage. The patient had iron-deficiency anemia, but his hemoglobin is stable. He will continue iron once he is discharged. The patient has difficulty ambulating and has slowly been going downhill as he is not able to be as independent as he was before. PLAN: The patient is on lisinopril for his hypertension. He is on cefepime. He is going to continue his Coumadin once his INR is between 2 and 3. He is going to be on a heart-healthy diet. Andrey Valdez MD
[2018-10-12] MEDS: Vancomycin 750mg 750 MG/250 ML BAG IVPB SCH ×3 (05:37→23:10)
[2018-10-12 07:34] LABS: HEMOGLOBIN 10.8 g/dL (14.0-18.0); MEAN CELL VOLUME 90.6 fl (80.0-105.0); MEAN CORPUSCULAR HEMOGLOBIN 29.8 pg (25.0-35.0); MEAN CORPUSCULAR HGB CONC 32.9 g/dl (31.0-37.0); MEAN PLATELET VOLUME 9.2 fl (7.0-11.0); RBC 3.62 10^6/uL (3.5-6.1); RED CELL DISTRIBUTION WIDTH 14.5 % (11.5-14.5); WHITE BLOOD COUNT 6.5 10^3/uL (4.5-11.0)
[2018-10-12] MEDS: Insulin Lispro (humaLOG) LOW Coverage SC SCH ×4 (07:36→21:43)
[2018-10-12 07:40] LABS: INR 2.94; PROTHROMBIN TIME 33.2 SECONDS (9.4-12.5)
[2018-10-12 08:02] LABS: BLOOD UREA NITROGEN 24 mg/dL (7-21); CALCIUM 8.2 mg/dL (8.4-10.5); GFR NON-AFRICAN AMERICAN > 60
[2018-10-12] MEDS: POLYETHYLENE GLYCOL 3350 17 GM/Dose PACKET PO PRN (09:37)
[2018-10-12] MEDS: Cefepime 1gm in NS 100ml 1 GM/100 ML BAG IVPB SCH ×2 (09:37→21:55)
--- NOTE | 2018-10-13 00:10 | PN ---
DATE: 10/12/2018 SUBJECTIVE: The patient is in bed, in no acute distress, nontoxic. PHYSICAL EXAMINATION: VITAL SIGNS: Temperature 98, blood pressure 130/70, and respiratory rate 20. HEENT: Unremarkable. NECK: Supple. LUNGS: Decreased breath sounds. HEART: Normal S1 and S2. ABDOMEN: Soft and nontender. LABORATORY DATA: Reveals white count of 12,900, today's white count is down to 6.5. Chemistries are noted. The patient does have procalcitonin of 0.63. Urinalysis is unremarkable. Microbiology reveals 2 bottles are positive for Enterococcus faecalis by PNA FISH, sensitivity is pending. Blood cultures, no growth. Urine culture gram-positive cocci, not identified, only one bottle is positive and second bottle is negative. Repeat blood cultures are negative. Awaiting for any identification and sensitivity. ASSESSMENT AND PLAN: An 88-year-old male with Enterococcus bacteremia with gram-positive cocci in urine with healthcare-associated pneumonia, acute kidney injury. Awaiting for the sensitivity. Currently, on vancomycin and cefepime. I doubt endocarditis. We will follow with you. Ranulfo Blanchard MD
--- NOTE | 2018-10-13 02:14 | PN ---
DATE: 10/12/2018 SUBJECTIVE: The patient has no complaints of any chest pain or shortness of breath. No headache. PHYSICAL EXAMINATION VITAL SIGNS: Temperature is 97.7, pulse of 57, blood pressure is 148/73, respirations 21. GENERAL: The patient is lying in bed, flat, comfortable. HEENT: No oral lesion. Anicteric sclerae. Moist mucosa. NECK: No JVD, adenopathy, or thyromegaly. CARDIOVASCULAR: S1 and S2, regular. No murmurs, rubs, or gallops. LUNGS: Clear to auscultation bilaterally. No wheeze, rales, or rhonchi. ABDOMEN: Bowel sounds are positive, soft, nontender and nondistended. EXTREMITIES: No cyanosis, clubbing or edema. LABORATORY DATA: White count of 6.5, hemoglobin 10.8, creatinine is 0.9. ASSESSMENT: 1. Sepsis. 2. Urinary tract infection. 3. Coagulopathy secondary to Coumadin toxicity, improving. 4. Cerebrovascular accident with residual left-sided weakness. 5. Atrial fibrillation on Coumadin. 6. Hypertension. 7. Diabetes type 2. 8. Chronic obstructive pulmonary disease. 9. Dyslipidemia. 10. Dementia, Alzheimer's type. 11. Constipation. PLAN: The patient is on Aricept for the dementia. He is on Coumadin for anticoagulation. The patient is on Cefepime for antibiotics. He is on MiraLax for constipation. He is on vancomycin. He is receiving his heart-healthy diet. He is currently comfortable. Andrey Valdez MD
[2018-10-13] MEDS: Insulin Lispro (humaLOG) LOW Coverage SC SCH ×4 (07:35→21:33)
[2018-10-13] MEDS: Cefepime 1gm in NS 100ml 1 GM/100 ML BAG IVPB SCH (10:22)
[2018-10-13] MEDS: Vancomycin 750mg 750 MG/250 ML BAG IVPB SCH (12:00)
[2018-10-13] MEDS: AMPicillin 2 GM in Sodium Chloride 0.9% 100 ML IVPB SCH ×2 (18:09→23:18)
--- NOTE | 2018-10-13 20:36 | PN ---
DATE: 10/13/2018 SUBJECTIVE: The patient is in bed, in no acute distress, nontoxic, was seen earlier this morning. PHYSICAL EXAMINATION GENERAL: Comfortable. VITAL SIGNS: Temperature of 97. T. max 2 days ago was 100.4, blood pressure is 150/80, respiratory rate of 21, heart rate of 57. HEENT: Unremarkable. NECK: Supple. LUNGS: Decreased breath sounds. HEART: Normal S1 and S2. ABDOMEN: Soft. LABORATORY DATA: Reveals a white count of 6.5, hemoglobin of 10, BUN of 24, creatinine of 0.9. WBC count 10-15. ASSESSMENT AND PLAN: An 88-year-old male with Enterococcus bacteremia. Microbiology reveals the patient to have Enterococcus fecalis sensitive to ampicillin in one bottle, the other bottle is negative and Enterococcus in the urine. Repeat blood culture is negative. Currently on vancomycin. We will discontinue the cefepime. Sensitive to ampicillin. We will order an echocardiogram. We will obtain the ampicillin, discontinue the vancomycin. Pending the results of an echocardiogram. Clinically, the patient does not meet Todd's criteria for endocarditis; however, we will order an echocardiogram to rule out endocarditis. Ranulfo Blanchard MD
[2018-10-13 23:14] VITALS: RESP 20
--- NOTE | 2018-10-14 00:10 | PN ---
DATE: 10/13/2018 SUBJECTIVE: The patient is 88-year-old, seen and examined, seems to be very hard of hearing, only answers when being able in the ear. He states he is fine, offered no complaints. PHYSICAL EXAMINATION: VITAL SIGNS: He is afebrile, pulse 57, respirations 16, blood pressure 167/79. LUNGS: Bilateral fair airflow. No rhonchi or crackle. HEART: S1 and S2 audible. ABDOMEN: Soft, nontender. No rebound, no guarding. NEUROLOGIC: The patient is awake and alert, able to communicate, but hard of hearing. LABORATORY DATA: PT 33.2, INR 2.94. Chemistry: Sugar is 114. ASSESSMENT AND PLAN: 1. Resolving sepsis. 2. History of cerebrovascular accident with left-sided weakness. 3. Impaired hearing. 4. Chronic atrial fibrillation, on Coumadin. 5. Hypertension. 6. Non-insulin dependent diabetes. 7. Mild dementia. 8. Hyperlipidemia. 9. Chronic obstructive pulmonary disease. PLAN: The patient is currently on ampicillin because of his enterococcus faecalis bacteremia and enterococcus faecalis UTI. Currently, he is on Coumadin. I will order for PT, INR in a.m. Encouraged ambulation. Kyleigh Edward MD
[2018-10-14] MEDS: AMPicillin 2 GM in Sodium Chloride 0.9% 100 ML IVPB SCH ×2 (05:19→12:25)
[2018-10-14 07:05] LABS: INR 1.85; PROTHROMBIN TIME 20.9 SECONDS (9.4-12.5)
[2018-10-14] MEDS: Insulin Lispro (humaLOG) LOW Coverage SC SCH ×2 (08:23→12:28)
--- NOTE | 2018-10-14 11:35 | CARD ---
APPROVED REPORT Date of service: 10/14/2018 EXAM: Two-dimensional and M-mode echocardiogram with Doppler and color Doppler. INDICATION Infection:Rule out subacute bacterial endocarditis 2D DIMENSIONS Left Atrium (2D)4.1 (1.6-4.0cm)IVSd1.5 (0.7-1.1cm) LVDd4.5 (3.9-5.9cm)PWd1.4 (0.7-1.1cm) M-Mode DIMENSIONS Aortic Root3.60 (2.2-3.7cm)Aortic Cusp Exc.1.40 (1.5-2.0cm) Aortic Valve AoV Peak Suxtckjz714.0cm/Khoa Peak GR.17mmHg Mitral Valve E/A ratio0.0 TDI E/Lateral E'0.0E/Medial E'0.0 Pulmonary Valve PV Peak [id number]/sPV Peak Grad.4mmHg Tricuspid Valve TR Peak [id number] Peak Gr.38mmHg [id number] LEFT VENTRICLE The left ventricle is normal size. There is moderate concentric left ventricular hypertrophy. The systolic function is moderately impaired. There is global hypokinesis of the left ventricle. RIGHT VENTRICLE The right ventricle is normal size. The right ventricular systolic function is normal. ATRIA The left atrium is mildly dilated. The right atrium size is normal. The interatrial septum is intact with no evidence for an atrial septal defect. AORTIC VALVE The aortic valve is moderately sclerotic. There is mild aortic regurgitation. There is no aortic valvular stenosis. Cannot exclude aortic valvular vegetation. MITRAL VALVE The mitral valve is mildly thickened. Mitral regurgitation is mild. TRICUSPID VALVE The tricuspid valve is normal in structure. There is moderate tricuspid regurgitation. PULMONIC VALVE The pulmonary valve is normal in structure. There is mild pulmonic valvular regurgitation. GREAT VESSELS The aortic root is normal in size. The IVC is normal in size and collapses >50% with inspiration. PERICARDIAL EFFUSION There is no pleural effusion. There is no pericardial effusion. <Conclusion> Mildly dilated LA. Normal LV size. Moderate concentric LVH. Global LV hypokinesis noted. Sclerotic aortic valve with no evidence of stenosis. Moderate aortic insufficiency. Cannot exclude aortic valve regurgitation. Mild mitral regurgitation. Moderate tricuspid regurgitation.
[2018-10-14 15:38] VITALS: BP 137/80; PULSE 63; TEMP 98.3; O2SAT 94
--- NOTE | 2018-10-14 16:23 | CP.PCM.DIS ---
<Segundo Miller - Last Filed: 10/14/18 17:26> Provider - Provider Date of Admission: 10/11/18 11:44 Attending physician: Andrey Valdez MD Primary care physician: Jefry Tineo MD Consults: 10/11/18 09:09 Infectious Disease Consult Routine Comment: Consulting Provider: Ranulfo Blanchard Consulting Physician: Ranulfo Blanchard Reason for Consult: gm+ bacteremia 10/11/18 11:22 Evaluation for TRCU Routine Comment: Physician Instructions: Reason For Exam: please eval. Time Spent in preparation of Discharge (in minutes): 45 Diagnosis - Discharge Diagnosis (1) Failure to thrive Status: Acute (2) UTI (urinary tract infection) Status: Acute (3) Bacteremia Status: Acute Hospital Course - Lab Results Lab Results: Micro Results 10/10/18 13:25 Blood Blood Culture - Preliminary NO GROWTH AFTER 4 DAYS 10/11/18 11:15 Blood Blood Culture - Preliminary NO GROWTH AFTER 3 DAYS 10/11/18 11:30 Blood Blood Culture - Preliminary NO GROWTH AFTER 3 DAYS 10/10/18 23:10 Urine,Clean Catch Urine Culture - Final Enterococcus Faecalis 10/10/18 13:55 Blood S.aureus & Coag-Neg Staph PNA FISH - Final 10/10/18 13:55 Blood Blood Culture - Final Enterococcus Faecalis 10/10/18 13:55 Blood Gram Stain - Final Most Recent Lab Values WBC 6.5 10^3/uL (4.5-11.0) D 10/12/18 07:00 RBC 3.62 10^6/uL (3.5-6.1) 10/12/18 07:00 Hgb 10.8 g/dL (14.0-18.0) L 10/12/18 07:00 Hct 32.8 % (42.0-52.0) L 10/12/18 07:00 MCV 90.6 fl (80.0-105.0) 10/12/18 07:00 MCH 29.8 pg (25.0-35.0) 10/12/18 07:00 MCHC 32.9 g/dl (31.0-37.0) 10/12/18 07:00 RDW 14.5 % (11.5-14.5) 10/12/18 07:00 Plt Count 154 10^3/uL (120.0-450.0) 10/12/18 07:00 MPV 9.2 fl (7.0-11.0) 10/12/18 07:00 Neut % (Auto) 78.7 % (50.0-68.0) H 10/11/18 08:00 Lymph % (Auto) 13.1 % (22.0-35.0) L 10/11/18 08:00 [place] % (Auto) 7.8 % (1.0-6.0) H 10/11/18 08:00 Eos % (Auto) 0.2 % (1.5-5.0) L 10/11/18 08:00 Baso % (Auto) 0.2 % (0.0-3.0) 10/11/18 08:00 Lymph # (Auto) 1.1 (1.2-3.4) L 10/11/18 08:00 [place] # (Auto) 0.6 (0.1-0.6) 10/11/18 08:00 Eos # (Auto) 0.0 (0.0-0.7) 10/11/18 08:00 Baso # (Auto) 0.02 K/mm3 (0.0-2.0) 10/11/18 08:00 Absolute Neuts (auto) 6.46 (1.4-6.5) 10/11/18 08:00 ESR 102 mm/hr (0.00-15.0) H 10/14/18 06:45 PT 20.9 SECONDS (9.4-12.5) H 10/14/18 06:45 INR 1.85 10/14/18 06:45 APTT 91.9 Seconds (26.9-38.3) H 10/10/18 13:23 pO2 31 mm/Hg (30-55) 10/10/18 13:50 VBG pH 7.43 (7.32-7.43) 10/10/18 13:50 VBG pCO2 41.0 (40-60) 10/10/18 13:50 VBG HCO3 27.2 mmol/l (21-28) 10/10/18 13:50 VBG Total CO2 28.5 mmol.L (22-28) H 10/10/18 13:50 VBG O2 Sat (Calc) 63.8 % (40-65) 10/10/18 13:50 VBG Base Excess 2.6 mmol/L (0.0-2.0) H 10/10/18 13:50 VBG Potassium 4.0 mmol/L (3.6-5.2) 10/10/18 13:50 Sodium 135.0 mmol/L (132-148) 10/10/18 13:50 Chloride 104.0 mmol/L (98-107) 10/10/18 13:50 Glucose 121 mg/dl (75-110) H 10/10/18 13:50 Lactate 1.6 mmol/L (0.7-2.1) 10/10/18 13:50 FiO2 21.0 % 10/10/18 13:50 Sodium 135 mmol/L (132-148) 10/12/18 07:00 Potassium 3.7 mmol/L (3.6-5.0) 10/12/18 07:00 Chloride 100 mmol/L (98-107) 10/12/18 07:00 Carbon Dioxide 27 mmol/L (21-33) 10/12/18 07:00 Anion Gap 12 (10-20) 10/12/18 07:00 BUN 24 mg/dL (7-21) H 10/12/18 07:00 Creatinine 0.9 mg/dl (0.8-1.5) 10/12/18 07:00 Est GFR ( Amer) > 60 10/12/18 07:00 Est GFR (Non-Af Amer) > 60 10/12/18 07:00 POC Glucose (mg/dL) 106 mg/dL (65-110) 10/14/18 06:15 Random Glucose 92 mg/dL (70-110) 10/12/18 07:00 Hemoglobin A1c 5.3 % (4.2-6.5) 10/11/18 09:07 Calcium 8.2 mg/dL (8.4-10.5) L 10/12/18 07:00 Phosphorus 3.1 mg/dL (2.5-4.5) 10/11/18 08:00 Magnesium 2.1 mg/dL (1.7-2.2) 10/11/18 08:00 Iron 20 ug/dL (45-180) L 10/11/18 08:00 TIBC 218 ug/dL (261-462) L 10/11/18 08:00 % Saturation 9 % (20-55) L 10/11/18 08:00 Ferritin 227.0 ng/mL 10/11/18 08:00 Total Bilirubin 1.1 mg/dL (0.2-1.3) 10/11/18 08:00 AST 21 U/L (17-59) 10/11/18 08:00 ALT 16 U/L (7-56) 10/11/18 08:00 Alkaline Phosphatase 63 U/L (38-126) 10/11/18 08:00 C-Reactive Protein 36.90 mg/L (0.0-9.9) H 10/14/18 06:45 Total Protein 6.1 g/dL (5.8-8.3) 10/11/18 08:00 Albumin 3.0 g/dL (3.0-4.8) 10/11/18 08:00 Globulin 3.1 gm/dL 10/11/18 08:00 Albumin/Globulin Ratio 1.0 (1.1-1.8) L 10/11/18 08:00 Triglycerides 61 mg/dL (35-160) 10/11/18 09:07 Cholesterol 104 mg/dL (130-200) L 10/11/18 09:07 LDL Cholesterol Direct 58 mg/dL (0-129) 10/11/18 09:07 HDL Cholesterol 32 mg/dL (29-60) 10/11/18 09:07 Vitamin B12 446 pg/mL (239-931) 10/11/18 08:00 Folate 9.2 ng/mL 10/11/18 08:00 Procalcitonin 0.63 NG/ML (0.19-0.49) H 10/11/18 11:30 TSH 3rd Generation 2.83 mIU/mL (0.46-4.68) 10/11/18 09:07 Venous Blood Potassium 4.0 mmol/L (3.6-5.2) 10/10/18 13:50 Urine Color Dark yellow (YELLOW) 10/10/18 17:11 Urine Appearance Slight-cloudy (CLEAR) 10/10/18 17:11 Urine pH 6.0 (4.7-8.0) 10/10/18 17:11 Ur Specific [place] 1.025 (1.005-1.035) 10/10/18 17:11 Urine Protein 30 mg/dL (<30 mg/dL) H 10/10/18 17:11 Urine Glucose (UA) Negative mg/dL (NEGATIVE) 10/10/18 17:11 Urine Ketones Negative mg/dL (NEGATIVE) 10/10/18 17:11 Urine Blood Large (NEGATIVE) H 10/10/18 17:11 Urine Nitrate Negative (NEGATIVE) 10/10/18 17:11 Urine Bilirubin Negative (NEGATIVE) 10/10/18 17:11 Urine Urobilinogen 0.2 E.U./dL (<1 E.U./dL) 10/10/18 17:11 Ur Leukocyte Esterase Moderate [place]/uL (NEGATIVE) H 10/10/18 17:11 Urine RBC 25 - 30 /hpf (0-2) H 10/10/18 17:11 Urine WBC 10 - 15 /hpf (0-6) H 10/10/18 17:11 Ur Epithelial Cells None /hpf (0-5) 10/10/18 17:11 Urine Bacteria Few /hpf (NONE) 10/10/18 17:11 - Hospital Course Hospital Course: 88-year-old male with a past medical history of atrial fibrillation on Coumadin, CVA with residual left-sided weakness, history of previous DVT, hypertension, and dementia who presented originally for complaints of failure to thrive associated with fever, nausea, vomiting and poor oral intake. Patient was found to have sepsis with a E faecalis likely source from the urine. Patient was originally on broad-spectrum antibiotics which were downgraded to ampicillin once sensitivities came back. Patient on admission had a chest x-ray which revealed an sensation of thickening in both lower lobes which likely represents interstitial fibrosis. And more confluent airspace disease in the left lower lobe which may represent atelectasis/pneumonia as well as background of COPD. Patient was evaluated by infectious disease. Their recommendations were appreciated. Patient was evaluated by physical therapy who recommended transitional care unit for his deconditioning. Patient was seen and examined on 10/14/2018 and found to be in improved condition. Patient will continue with IV therapy per infectious disease and will be transferred over to the transitional care unit for intensive physical therapy. Patient will be followed in the transitional care unit. Discussed with nursing staff. All questions welcomed and answered to verbal satisfaction. - Date & Time of H&P Date of H&P: 10/14/18 Time of H&P: 14:30 Discharge Exam - Head Exam Head Exam: ATRAUMATIC, NORMAL INSPECTION, NORMOCEPHALIC - Eye Exam Eye Exam: EOMI. absent: Scleral icterus - ENT Exam ENT Exam: Mucous Membranes Moist - Neck Exam Neck exam: Normal Inspection - Respiratory Exam Respiratory Exam: Clear to PA & Lateral. absent: Rales, Rhonchi, Wheezes - Cardiovascular Exam Cardiovascular Exam: +S1, +S2. absent: Gallop, Rubs - GI/Abdominal Exam GI & Abdominal Exam: Normal Bowel Sounds, Soft. absent: Distended, Tenderness - Neurological Exam Neurological exam: Alert, Oriented x3 - Psychiatric Exam Psychiatric exam: Normal Affect - Skin Skin Exam: Dry, Warm Discharge Plan - Follow Up Plan Condition: STABLE Disposition: REHAB FACILITY/REHAB UNIT Instructions: Urinary Tract Infection in Women (DC), Urinary Tract Infection in Men (DC), Sepsis (DC), Sepsis (GEN), Dysuria (GEN) Additional Instructions: Follow up with Primary Care Doctor within a week of discharge Referrals: Jefry Tineo MD [Primary Care Provider] - <Andrey Valdez - Last Filed: 10/14/18 21:20> Provider - Provider Date of Admission: 10/11/18 11:44 Attending physician: Andrey Valdez MD Primary care physician: Jefry Tineo MD Consults: 10/11/18 09:09 Infectious Disease Consult Routine Comment: Consulting Provider: Ranulfo Blanchard Consulting Physician: Ranulfo Blanchard Reason for Consult: gm+ bacteremia 10/11/18 11:22 Evaluation for TRCU Routine Comment: Physician Instructions: Reason For Exam: please eval. Hospital Course - Lab Results Lab Results: Micro Results 10/10/18 13:25 Blood Blood Culture - Preliminary NO GROWTH AFTER 4 DAYS 10/11/18 11:15 Blood Blood Culture - Preliminary NO GROWTH AFTER 3 DAYS 10/11/18 11:30 Blood Blood Culture - Preliminary NO GROWTH AFTER 3 DAYS 10/10/18 23:10 Urine,Clean Catch Urine Culture - Final Enterococcus Faecalis 10/10/18 13:55 Blood S.aureus & Coag-Neg Staph PNA FISH - Final 10/10/18 13:55 Blood Blood Culture - Final Enterococcus Faecalis 10/10/18 13:55 Blood Gram Stain - Final Most Recent Lab Values WBC 6.5 10^3/uL (4.5-11.0) D 10/12/18 07:00 RBC 3.62 10^6/uL (3.5-6.1) 10/12/18 07:00 Hgb 10.8 g/dL (14.0-18.0) L 10/12/18 07:00 Hct 32.8 % (42.0-52.0) L 10/12/18 07:00 MCV 90.6 fl (80.0-105.0) 10/12/18 07:00 MCH 29.8 pg (25.0-35.0) 10/12/18 07:00 MCHC 32.9 g/dl (31.0-37.0) 10/12/18 07:00 RDW 14.5 % (11.5-14.5) 10/12/18 07:00 Plt Count 154 10^3/uL (120.0-450.0) 10/12/18 07:00 MPV 9.2 fl (7.0-11.0) 10/12/18 07:00 Neut % (Auto) 78.7 % (50.0-68.0) H 10/11/18 08:00 Lymph % (Auto) 13.1 % (22.0-35.0) L 10/11/18 08:00 [place] % (Auto) 7.8 % (1.0-6.0) H 10/11/18 08:00 Eos % (Auto) 0.2 % (1.5-5.0) L 10/11/18 08:00 Baso % (Auto) 0.2 % (0.0-3.0) 10/11/18 08:00 Lymph # (Auto) 1.1 (1.2-3.4) L 10/11/18 08:00 [place] # (Auto) 0.6 (0.1-0.6) 10/11/18 08:00 Eos # (Auto) 0.0 (0.0-0.7) 10/11/18 08:00 Baso # (Auto) 0.02 K/mm3 (0.0-2.0) 10/11/18 08:00 Absolute Neuts (auto) 6.46 (1.4-6.5) 10/11/18 08:00 ESR 102 mm/hr (0.00-15.0) H 10/14/18 06:45 PT 20.9 SECONDS (9.4-12.5) H 10/14/18 06:45 INR 1.85 10/14/18 06:45 APTT 91.9 Seconds (26.9-38.3) H 10/10/18 13:23 pO2 31 mm/Hg (30-55) 10/10/18 13:50 VBG pH 7.43 (7.32-7.43) 10/10/18 13:50 VBG pCO2 41.0 (40-60) 10/10/18 13:50 VBG HCO3 27.2 mmol/l (21-28) 10/10/18 13:50 VBG Total CO2 28.5 mmol.L (22-28) H 10/10/18 13:50 VBG O2 Sat (Calc) 63.8 % (40-65) 10/10/18 13:50 VBG Base Excess 2.6 mmol/L (0.0-2.0) H 10/10/18 13:50 VBG Potassium 4.0 mmol/L (3.6-5.2) 10/10/18 13:50 Sodium 135.0 mmol/L (132-148) 10/10/18 13:50 Chloride 104.0 mmol/L (98-107) 10/10/18 13:50 Glucose 121 mg/dl (75-110) H 10/10/18 13:50 Lactate 1.6 mmol/L (0.7-2.1) 10/10/18 13:50 FiO2 21.0 % 10/10/18 13:50 Sodium 135 mmol/L (132-148) 10/12/18 07:00 Potassium 3.7 mmol/L (3.6-5.0) 10/12/18 07:00 Chloride 100 mmol/L (98-107) 10/12/18 07:00 Carbon Dioxide 27 mmol/L (21-33) 10/12/18 07:00 Anion Gap 12 (10-20) 10/12/18 07:00 BUN 24 mg/dL (7-21) H 10/12/18 07:00 Creatinine 0.9 mg/dl (0.8-1.5) 10/12/18 07:00 Est GFR ( Amer) > 60 10/12/18 07:00 Est GFR (Non-Af Amer) > 60 10/12/18 07:00 POC Glucose (mg/dL) 153 mg/dL (65-110) H 10/14/18 16:08 Random Glucose 92 mg/dL (70-110) 10/12/18 07:00 Hemoglobin A1c 5.3 % (4.2-6.5) 10/11/18 09:07 Calcium 8.2 mg/dL (8.4-10.5) L 10/12/18 07:00 Phosphorus 3.1 mg/dL (2.5-4.5) 10/11/18 08:00 Magnesium 2.1 mg/dL (1.7-2.2) 10/11/18 08:00 Iron 20 ug/dL (45-180) L 10/11/18 08:00 TIBC 218 ug/dL (261-462) L 10/11/18 08:00 % Saturation 9 % (20-55) L 10/11/18 08:00 Ferritin 227.0 ng/mL 10/11/18 08:00 Total Bilirubin 1.1 mg/dL (0.2-1.3) 10/11/18 08:00 AST 21 U/L (17-59) 10/11/18 08:00 ALT 16 U/L (7-56) 10/11/18 08:00 Alkaline Phosphatase 63 U/L (38-126) 10/11/18 08:00 C-Reactive Protein 36.90 mg/L (0.0-9.9) H 10/14/18 06:45 Total Protein 6.1 g/dL (5.8-8.3) 10/11/18 08:00 Albumin 3.0 g/dL (3.0-4.8) 10/11/18 08:00 Globulin 3.1 gm/dL 10/11/18 08:00 Albumin/Globulin Ratio 1.0 (1.1-1.8) L 10/11/18 08:00 Triglycerides 61 mg/dL (35-160) 10/11/18 09:07 Cholesterol 104 mg/dL (130-200) L 10/11/18 09:07 LDL Cholesterol Direct 58 mg/dL (0-129) 10/11/18 09:07 HDL Cholesterol 32 mg/dL (29-60) 10/11/18 09:07 Vitamin B12 446 pg/mL (239-931) 10/11/18 08:00 Folate 9.2 ng/mL 10/11/18 08:00 Procalcitonin 0.63 NG/ML (0.19-0.49) H 10/11/18 11:30 TSH 3rd Generation 2.83 mIU/mL (0.46-4.68) 10/11/18 09:07 Venous Blood Potassium 4.0 mmol/L (3.6-5.2) 10/10/18 13:50 Urine Color Dark yellow (YELLOW) 10/10/18 17:11 Urine Appearance Slight-cloudy (CLEAR) 10/10/18 17:11 Urine pH 6.0 (4.7-8.0) 10/10/18 17:11 Ur Specific [place] 1.025 (1.005-1.035) 10/10/18 17:11 Urine Protein 30 mg/dL (<30 mg/dL) H 10/10/18 17:11 Urine Glucose (UA) Negative mg/dL (NEGATIVE) 10/10/18 17:11 Urine Ketones Negative mg/dL (NEGATIVE) 10/10/18 17:11 Urine Blood Large (NEGATIVE) H 10/10/18 17:11 Urine Nitrate Negative (NEGATIVE) 10/10/18 17:11 Urine Bilirubin Negative (NEGATIVE) 10/10/18 17:11 Urine Urobilinogen 0.2 E.U./dL (<1 E.U./dL) 10/10/18 17:11 Ur Leukocyte Esterase Moderate [place]ain/uL (NEGATIVE) H 10/10/18 17:11 Urine RBC 25 - 30 /hpf (0-2) H 10/10/18 17:11 Urine WBC 10 - 15 /hpf (0-6) H 10/10/18 17:11 Ur Epithelial Cells None /hpf (0-5) 10/10/18 17:11 Urine Bacteria Few /hpf (NONE) 10/10/18 17:11 - Hospital Course Hospital Course: Pt seen and examined by me. I have reviewed the note of the emergency medical service coordinator and I agree with it. I have discussed the assessment and plan with the resident. I have reviewed the medications and the last labs.
--- NOTE | 2018-10-15 00:09 | PN ---
DATE: 10/14/2018 SUBJECTIVE: The patient is in bed, in no acute distress. PHYSICAL EXAMINATION VITAL SIGNS: Temperature is 98, blood pressure is 130/80, respiratory rate of 16. HEENT: Unremarkable. NECK: Supple. LUNGS: Have decreased breath sounds. HEART: Normal S1, S2. ABDOMEN: Soft. LABORATORY DATA: Noted. White count is 6.5. Sed rate is 102. Chemistries reveals a C-reactive protein is 36.9. Urinalysis is noted. Microbiology reveals Enterococcus in the urine sensitive to ampicillin and Enterococcus in the blood, one bottle sensitive to ampicillin. The patient had an echo, which revealed cannot exclude aortic valve regurgitation, mitral valve regurgitation. Cannot exclude aortic valve vegetation. The repeat blood cultures are negative within the 24-hour space against endocarditis. REVIEW OF ORDERS: Dr. Brewer's note. ASSESSMENT AND PLAN: An 88-year-old male who was seen earlier today in room 571, bed 2 where he has enterococcus bacteremia secondary to enterococcus urinary tract infection on ampicillin. We will continue on ampicillin at this time. Ranulfo Blanchard MD
--- NOTE | 2018-10-15 05:27 | DS ---
HOSPITAL COURSE: The patient was seen and examined. I do agree with the note of the medical technologist. I was involved in the plan of care. The patient had come into the hospital and was having difficulty in ambulating. He has failure to thrive. The patient was evaluated by physical therapy, and he is going to transitional care unit for rehab. He had echocardiogram done by Dr. Brewer which showed mildly dilated LA and mildly concentric LVH with moderate aortic insufficiency. He had blood cultures that were positive. An echo was done to rule out endocarditis. He has been on IV antibiotics by Infectious Disease. The patient is on Coumadin for his atrial fibrillation. He is able to eat. He is on a heart-health diet. Andrey Valdez MD
--- NOTE | 2018-10-17 03:57 | PQF ---
PROVIDER RESPONSE TEXT: No MACIEJ. No healthcare associated pneumonia REVIEWER QUERY TEXT: Documentation Clarification Your help is requested in clarifying the following clinical documentation, if you can please further specify in the medical record and discharge summary. The patient's Clinical Indicators include: As per MARA PAREDES documented several of the progress notes ----healthcare associated PNEUMONIA and ACUTE KIDNEY FAILURE. Patient treated with vancomycin and cefepime. Do you agree with above diagnosis? Query created by: Faye Harry on 10/16/2018 7:18 AM Electronically signed by: Andrey Valdez MD 10/17/2018 3:54 AM
== END 2018-10-14 17:01 | DRG 872 ==
LOC: ED 11:49 → ERH 18:13 → 5RSO 21:55 → OBSVTOIN 10-11 11:44
PROVIDERS: ADMIT Internal Medicine Nephrology; ATTEND Internal Medicine Nephrology
DX: A41.9 Sepsis, unspecified organism (principal); N39.0 Urinary tract infection, site not specified; I69.354 Hemiplegia and hemiparesis following cerebral infarction affecting left non-dominant side; D68.32 Hemorrhagic disorder due to extrinsic circulating anticoagulants; T45.515A Adverse effect of anticoagulants, initial encounter; B95.2 Enterococcus as the cause of diseases classified elsewhere; I11.0 Hypertensive heart disease with heart failure; I50.9 Heart failure, unspecified; R62.7 Adult failure to thrive; I48.2 Chronic atrial fibrillation; E10.9 Type 1 diabetes mellitus without complications; G30.9 Alzheimer's disease, unspecified; F02.80 Dementia in other diseases classified elsewhere, unspecified severity, without behavioral disturbance, psychotic disturbance, mood disturbance, and anxiety; K59.00 Constipation, unspecified; R26.2 Difficulty in walking, not elsewhere classified; D50.9 Iron deficiency anemia, unspecified; I25.10 Atherosclerotic heart disease of native coronary artery without angina pectoris; E03.9 Hypothyroidism, unspecified; I35.1 Nonrheumatic aortic (valve) insufficiency; E78.5 Hyperlipidemia, unspecified; H91.90 Unspecified hearing loss, unspecified ear; J44.9 Chronic obstructive pulmonary disease, unspecified; Z79.01 Long term (current) use of anticoagulants; Z86.718 Personal history of other venous thrombosis and embolism; Z87.891 Personal history of nicotine dependence

== ENCOUNTER 2018-10-14 17:05 | Inpatient (IN) | payer OTHER, BC ==
[2018-10-14] MEDS ORDERED: POLYETHYLENE GLYCOL 3350 17 GM/Dose PACKET PO PRN (17:29)
[2018-10-14] MEDS ORDERED: Albuterol-Ipratrop 3 mg / 0.5 (3 ml) UD IH PRN (17:29)
[2018-10-14] MEDS: AMPicillin 2 GM in Sodium Chloride 0.9% 100 ML IVPB SCH (18:37)
[2018-10-14] MEDS: Insulin Lispro (humaLOG) LOW Coverage SC SCH (21:43)
[2018-10-15] MEDS: AMPicillin 2 GM in Sodium Chloride 0.9% 100 ML IVPB SCH ×4 (00:38→20:29)
[2018-10-15] MEDS: Insulin Lispro (humaLOG) LOW Coverage SC SCH ×4 (06:31→22:28)
--- NOTE | 2018-10-15 19:04 | HP ---
DATE OF EXAM: 10/15/2018 HISTORY OF PRESENT ILLNESS: This is an 88-year-old male, who has come into the hospital because of failure to thrive. The patient has been transferred to the Transitional Care Unit for rehab. I did review the notes of the hospital to gather information. The patient has a history of atrial fibrillation. He is on Coumadin. The patient has a CVA with the left-sided weakness. He has hypertension and a history of DVT. The patient says he is feeling better. He was found to have bacteremia and was started on IV antibiotics. The patient had an echo that did not show endocarditis. The patient's urine cultures showed a UTI with Enterococcus, and blood cultures have also showed Enterococcus. He is having difficulty in ambulating because of severe weakness. He lives with his son. He has no fevers or chills. No nausea. No vomiting. No abdominal pain or back pain. No dysuria or frequency. No nocturia. All other review of symptoms are within normal limits except what is mentioned. PAST MEDICAL HISTORY: 1. Atrial fibrillation, on Coumadin. 2. Dyslipidemia. 3. CVA with left hand weakness. 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 5. DVT with IVC filter. 6. Hypertension. PAST SURGICAL HISTORY: 1. Appendectomy. 2. Tonsillectomy. 3. IVC filter in 2016. ALLERGIES: NO KNOWN DRUG ALLERGIES. MEDICATIONS: Home medications have been reviewed on the AUG. SOCIAL HISTORY: The patient is a former smoker. He is not actively smoking. He denies alcohol or drug use. He uses a cane and walker at home. PHYSICAL EXAMINATION: VITAL SIGNS: Temperature is 98, pulse of 60, blood pressure 132/79, and respirations 18. Height is 6 feet, weight is 165 pounds, and BMI is 22.4. GENERAL: The patient is lying in bed, comfortable, and in no acute distress. HEENT: Atraumatic and normocephalic. Anicteric sclerae. Moist mucosa. [place] conjunctivae. No oral lesions. NECK: No JVD, anterior and posterior adenopathy, thyromegaly, or bruits. CARDIOVASCULAR: S1 and S2 regular. No murmurs, rubs or gallops. LUNGS: Clear to auscultation bilaterally. No wheezes, rales, or rhonchi. ABDOMEN: Bowel sounds are positive. Soft, nontender and nondistended. No hepatosplenomegaly. No rebound and no guarding. EXTREMITIES: No cyanosis, clubbing, or edema. NEUROLOGIC: No facial asymmetry. Tongue is midline. No uvula deviation. Power is 5/5 in upper extremities and lower extremities. Sensation intact in upper extremities and lower extremities. PSYCHIATRIC: He is awake, alert and oriented x3. No anxiety or depression. He has normal affect. GENITOURINARY: No CVA tenderness. VASCULAR: 2+ pulses in the carotid pulses and pedal pulses. SKIN: No erythema or nodules. SPINE: Shows normal curvature. LABORATORY DATA: From 10/12/2018 were reviewed. He has a white count of 6.5, hemoglobin 10.8, and platelet count is 154. Chemistry shows a sodium is 135, potassium is 3.7, and creatinine is 0.9. His echo on 10/14/2018 was reviewed, it did not show any signs of endocarditis. There was some moderate aortic insufficiency. There was LVH that was moderate. The patient had mild mitral regurgitation. Chest x-ray that was done shows interstitial thickening in both lower lobes, likely representing interstitial fibrosis. There is possible COPD. The patient had EKG on 10/10/2018, it showed a sinus rhythm, first-degree AV block, and left axis deviation. ASSESSMENT: 1. Failure to thrive. 2. Sepsis secondary to Enterococcus. 3. Urinary tract infection. 4. Anemia, chronic. 5. Cerebrovascular accident with left-sided residual weakness. 6. Atrial fibrillation, on anticoagulation. 7. Hypertension. 8. Chronic obstructive pulmonary disease. 9. Dyslipidemia. PLAN: The patient is currently on Coumadin, this will be continued. He is on Aricept for his dementia. He is on ampicillin for antibiotics. The patient is on iron for the anemia. The patient is on lisinopril for hypertension. He is going to continue with his Coumadin. Andrey Valdez MD
[2018-10-16] MEDS: AMPicillin 2 GM in Sodium Chloride 0.9% 100 ML IVPB SCH ×4 (06:38→23:00)
[2018-10-16] MEDS: Insulin Lispro (humaLOG) LOW Coverage SC SCH ×3 (06:39→18:07)
[2018-10-16 07:30] LABS: INR 2.12; PROTHROMBIN TIME 23.9 SECONDS (9.4-12.5)
--- NOTE | 2018-10-16 08:16 | CON ---
DATE: 10/15/2018 The patient is seen earlier today in Room #320. CHIEF COMPLAINT: Weakness times several days. 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 History of Proteus bacteremia secondary to a Proteus urinary tract infection, history of appendectomy, and tonsillectomy, with NO KNOWN ALLERGIES, was admitted. The patient was seen in the Acute Care. The patient was seen on 10/10 and blood cultures there were reported to be positive and Infectious Disease Consultation is requested. The patient had Enterococcus bacteremia and Enterococcus urinary tract infection and however, it was only one bottle of blood and repeat blood cultures within 24 hours were negative. REVIEW OF SYSTEMS: The patient is doing much better. No fevers, no chills, no nausea or vomiting or chest pain. PAST MEDICAL HISTORY: Significant for diabetes mellitus, hypertension, hyperlipidemia, congestive heart failure, hypothyroidism, cerebrovascular accident, dementia, history of Proteus bacteremia. PAST SURGICAL HISTORY: Appendectomy and tonsillectomy. ALLERGIES: THE PATIENT HAS NO KNOWN ALLERGIES. PHYSICAL EXAMINATION: GENERAL: On exam, the patient is in bed, in no acute distress, was seen earlier today in Room #320. VITAL SIGNS: Temperature of 98, blood pressure is 130/70, respiratory rate is 16. HEENT: Examination of HEENT is unremarkable. NECK: Supple. LUNGS: Have decreased breath sounds. HEART: Normal S1, S2. ABDOMEN: Soft. LABORATORY DATA: Laboratory examination reveals a white count of 12,900, hemoglobin of 11. Chemistries reveal a creatinine of 0.9. Urinalysis is noted. Blood cultures, we know with one bottle Enterococcus faecalis. Urine cultures positive for Enterococcus faecalis and repeat blood cultures on the third day after admission were negative. The patient did have a fever on admission of 100.4 and was short of breath. ASSESSMENT AND PLAN: This is an 88-year-old male who was seen earlier today, was admitted to acute care with sepsis with enterococcus bacteremia secondary to enterococcus urinary tract infection, to continue with the IV ampicillin. The echocardiogram was reported to be negative for endocarditis and he is currently on ampicillin and today with day #5 of ampicillin intravenously. We will follow with you. Ranulfo Blanchard MD [facility] # [id number]
--- NOTE | 2018-10-16 12:35 | PN ---
DATE: 10/16/2018 SUBJECTIVE: The patient has no complaints of any chest pain. No shortness of breath. No headaches or dizziness. PHYSICAL EXAMINATION: VITAL SIGNS: Temperature is 98, pulse 60, blood pressure 155/85, respirations 18. GENERAL: The patient is lying in bed, flat, comfortable. HEENT: No oral lesion. Anicteric sclerae. Moist mucosa. NECK: No JVD, adenopathy, or thyromegaly. CARDIOVASCULAR: S1 and S2, regular. No murmurs, rubs, or gallops. LUNGS: Clear to auscultation bilaterally. No wheeze, rales, or rhonchi. ABDOMEN: Bowel sounds are positive, soft, nontender and nondistended. EXTREMITIES: no cyanosis, clubbing or edema. ASSESSMENT: 1. Failure to thrive. 2. Sepsis secondary to enterococcus. 3. Urinary tract infection. 4. Anemia, chronic. 5. Cerebrovascular accident with left-sided residual weakness. 6. Atrial fibrillation, on anticoagulation. 7. Hypertension. 8. Chronic obstructive pulmonary disease. 9. Dyslipidemia. PLAN: The patient is on ampicillin for IV antibiotics for the sepsis. The patient is on Aricept for dementia. He is going to continue with Coumadin. His INR is 2.1 today. We will continue same dose. The patient is on iron sulphate for anemia. He is receiving polyethylene glycol for his constipation. The patient is on lisinopril for hypertension. He is on a heart-healthy diet. He is getting physical therapy. Andrey Valdez MD
--- NOTE | 2018-10-16 17:57 | PN ---
DATE: 10/16/2018 SUBJECTIVE: The patient is in bed, in no acute distress, was seen earlier today, nontoxic. PHYSICAL EXAMINATION VITAL SIGNS: Temperature is 98, blood pressure is 150/80, respiratory rate of 16. HEENT: Unremarkable. NECK: Supple. LUNGS: Have decreased breath sounds. HEART: Normal S1 and S2. ABDOMEN: Soft. LABORATORY DATA: Noted. Review of orders reveals the patient to be on ampicillin. Microbiology reveals the repeat cultures have been negative. ASSESSMENT AND PLAN: An 88-year-old male who was seen earlier today with diabetes mellitus, hypertension and hyperlipidemia with sepsis, Enterococcus bacteremia secondary to Enterococcus urinary tract infection. Today is day #6 of antibiotics, currently on ampicillin and repeat cultures are negative from 10/11, may be able to switch to p.o. ampicillin upon discharge. Ranulfo Blanchard MD
[2018-10-17] MEDS: AMPicillin 2 GM in Sodium Chloride 0.9% 100 ML IVPB SCH ×3 (05:29→17:30)
--- NOTE | 2018-10-17 21:01 | PN ---
DATE: 10/17/2018 SUBJECTIVE: The patient is in bed in no acute distress, was seen earlier today in room 320. PHYSICAL EXAMINATION VITAL SIGNS: Temperature is 97, blood pressure is 150/70, respiratory rate of 18. HEENT: Unremarkable. NECK: Supple. LUNGS: Have decreased breath sounds. HEART: Normal S1, S2. ABDOMEN: Soft. LABORATORY DATA: Reveals initial blood and urine culture had grown Enterococcus faecalis sensitive to ampicillin and blood culture. Repeat blood cultures are negative. ASSESSMENT AND PLAN: An 88-year-old male who was seen earlier today in room 320 with diabetes, hypertension, and hyperlipidemia was admitted with sepsis with enterococcus bacteremia secondary to enterococcus urinary tract infection, currently on day #7 of ampicillin. We will continue with the intravenous ampicillin upon discharge, may be able to switch to p.o. ampicillin. May consider repeating an echo to rule out endocarditis, although the initial echo was negative. Ranulfo Blanchard MD
[2018-10-18] MEDS: AMPicillin 2 GM in Sodium Chloride 0.9% 100 ML IVPB SCH ×4 (00:46→17:25)
--- NOTE | 2018-10-18 03:26 | PN ---
DATE: 10/17/2018 SUBJECTIVE: The patient has no complaints. No chest pain. No shortness of breath. No headaches. PHYSICAL EXAMINATION: VITAL SIGNS: Temperature 97.4, pulse 63, blood pressure 155/71, respirations 18. GENERAL: The patient is lying in bed, flat, comfortable. HEENT: No oral lesion. Anicteric sclerae. Moist mucosa. NECK: No JVD, adenopathy, or thyromegaly. CARDIOVASCULAR: S1 and S2, regular. No murmurs, rubs, or gallops. LUNGS: Clear to auscultation bilaterally. No wheeze, rales, or rhonchi. ABDOMEN: Bowel sounds are positive, soft, nontender and nondistended. EXTREMITIES: No cyanosis, clubbing or edema. ASSESSMENT: 1. Failure to thrive. 2. Sepsis secondary to Enterococcus. 3. Urinary tract infection. 4. Anemia. 5. Cerebrovascular accident with left-sided residual weakness. 6. Atrial fibrillation, on anticoagulation with Coumadin. 7. Hypertension. 8. Chronic obstructive pulmonary disease. 9. Dyslipidemia. PLAN: The patient is currently comfortable. Last INR was 2.1 yesterday. The patient's fingerstick is well controlled. He is on Coumadin 2 mg. He is going to continue with Aricept. He is on ampicillin for antibiotics. He is being followed by Infectious Disease. The patient is on iron for his anemia. He is on MiraLax for constipation. He is on lisinopril for his hypertension. He is working with physical therapy. He is able to walk 1000 feet. Andrey Valdez MD
--- NOTE | 2018-10-18 19:24 | PN ---
DATE: 10/18/2018 SUBJECTIVE: The patient is in bed in no acute distress. PHYSICAL EXAMINATION VITAL SIGNS: On exam the patient's temperature is 97, blood pressure is 125/59, respiratory rate of 18 and heart rate of 60. HEENT: Unremarkable. NECK: Supple. LUNGS: Have decreased breath sounds. HEART: Normal S1 and S2. ABDOMEN: Soft. LABORATORY EXAMINATION: Noted. Microbiology is noted. ASSESSMENT AND PLAN: This is an 88-year-old male who was seen earlier today with hypertension, diabetes, hyperlipidemia, admitted with sepsis, Enterococcus bacteremia secondary Enterococcus urinary tract infection and currently on ampicillin day #8. We will follow with you. Ranulfo Blanchard MD
--- NOTE | 2018-10-18 21:02 | PN ---
DATE: 10/18/2018 SUBJECTIVE: The patient has no complaints of any chest pain. No shortness of breath. No headaches. PHYSICAL EXAMINATION: VITAL SIGNS: Temperature 97.5, pulse 60, blood pressure 142/70, respirations 16. GENERAL: The patient is lying in bed, flat, comfortable. HEENT: No oral lesion. Anicteric sclerae. Moist mucosa. NECK: No JVD, adenopathy, or thyromegaly. CARDIOVASCULAR: S1 and S2, regular. No murmurs, rubs, or gallops. LUNGS: Clear to auscultation bilaterally. No wheeze, rales, or rhonchi. ABDOMEN: Bowel sounds are positive, soft, nontender and nondistended. EXTREMITIES: No cyanosis, clubbing or edema. ASSESSMENT: 1. Failure to thrive, improving. 2. Sepsis, secondary to Enterococcus urinary tract infection. 3. Anemia. 4. Cerebrovascular accident with left-sided residual weakness, chronic. 5. Atrial fibrillation, on Coumadin. 6. Hypertension. 7. Chronic obstructive pulmonary disease. 8. Dyslipidemia. PLAN: The patient is currently on ampicillin for antibiotics. This will be continued. He is being followed by Infectious Disease. The patient is going to continue Coumadin. He is on MiraLax for constipation. He is receiving Zestril for his hypertension. The patient's blood pressure is acceptable. I did review the note of Dr. Blanchard from Infectious Disease. Andrey Valdez MD
[2018-10-19] MEDS: AMPicillin 2 GM in Sodium Chloride 0.9% 100 ML IVPB SCH ×5 (05:54→23:01)
--- NOTE | 2018-10-19 12:31 | PN ---
DATE: 10/19/2018 SUBJECTIVE: The patient has no complaints of any headaches or dizziness. No nausea. No vomiting. PHYSICAL EXAMINATION: VITAL SIGNS: Temperature is 97.5, pulse is 60, blood pressure is 142/70, respirations 16. GENERAL: The patient is lying in bed, flat, comfortable. HEENT: No oral lesion. Anicteric sclerae. Moist mucosa. NECK: No JVD, adenopathy, or thyromegaly. CARDIOVASCULAR: S1 and S2, regular. No murmurs, rubs, or gallops. LUNGS: Clear to auscultation bilaterally. No wheeze, rales, or rhonchi. ABDOMEN: Bowel sounds are positive, soft, nontender and nondistended. EXTREMITIES: No cyanosis, clubbing or edema. ASSESSMENT: 1. Failure to thrive, improving. 2. Sepsis, secondary to Enterococcus urinary tract infection. 3. Anemia, chronic. 4. Cerebrovascular accident with left-sided residual weakness, chronic. 5. Atrial fibrillation, on Coumadin. 6. Hypertension. 7. Chronic obstructive pulmonary disease. 8. Dyslipidemia. PLAN: The patient remains on Coumadin. This will be continues on nebulizer treatment. He is on iron replacement. He is on Zestril for hypertension. He is doing well with physical therapy. Andrey Valdez MD
--- NOTE | 2018-10-19 23:58 | PN ---
DATE: 10/19/2018 SUBJECTIVE: The patient seen early this morning in no acute distress in room 320. No fevers. No chills. PHYSICAL EXAMINATION VITAL SIGNS: Temperature is 97, blood pressure is 140/70, respiratory rate of 18. HEENT: Unremarkable. NECK: Supple. LUNGS: Have decrease breath sounds. HEART: Normal S1 and S2. ABDOMEN: Soft. ASSESSMENT AND PLAN: This is an 88-year-old male who was seen earlier today with hypertension, diabetes, hyperlipidemia, admitted with sepsis, Enterococcus bacteremia secondary to Enterococcus urinary tract infection, on ampicillin day #9. Dr. Valdez's note is reviewed. Ranulfo Blanchard MD
[2018-10-20] MEDS: AMPicillin 2 GM in Sodium Chloride 0.9% 100 ML IVPB SCH ×2 (05:19→11:24)
--- NOTE | 2018-10-20 11:46 | PN ---
DATE: 10/20/2018 SUBJECTIVE: The patient is in bed in no acute distress, nontoxic. PHYSICAL EXAMINATION: VITAL SIGNS: Temperature is 97, blood pressure is 140/70, respiratory rate of 18. HEENT: Unremarkable. NECK: Supple. LUNGS: Have decreased breath sounds. LABORATORY EXAMINATION: Noted. ASSESSMENT AND PLAN: An 88-year-old male who was seen earlier today, hypertension, diabetes, hyperlipidemia, admitted with sepsis, Enterococcus bacteremia secondary to Enterococcus urinary tract infection and ampicillin day #10. Able to change to p.o. ampicillin upon discharge to complete 14 days. Ranulfo Blanchard MD
--- NOTE | 2018-10-20 16:43 | PN ---
DATE: 10/20/2018 SUBJECTIVE: The patient has no complaints of any chest pain. No shortness of breath. No headaches. PHYSICAL EXAMINATION VITAL SIGNS: Temperature is 97.5, pulse is 62, blood pressure is 147/88, respirations are 16. GENERAL: The patient is lying in bed, flat, comfortable. HEENT: No oral lesion. Anicteric sclerae. Moist mucosa. NECK: No JVD, adenopathy, or thyromegaly. CARDIOVASCULAR: S1 and S2, regular. No murmurs, rubs, or gallops. LUNGS: Clear to auscultation bilaterally. No wheeze, rales, or rhonchi. ABDOMEN: Bowel sounds are positive, soft, nontender and nondistended. EXTREMITIES: No cyanosis, clubbing or edema. ASSESSMENT: 1. Failure to thrive, improving. 2. Sepsis, secondary to enterococcus on antibiotics. 3. Chronic anemia. 4. Cerebrovascular accident with left-sided residual weakness. 5. Atrial fibrillation, on Coumadin. 6. Hypertension. 7. Chronic obstructive pulmonary disease. 8. Dyslipidemia. PLAN: The patient is being followed by Infectious Disease. I did speak with Dr. Blanchard from Infectious Disease. The patient is currently on day #10/14 of antibiotics. I will change the patient's ampicillin to p.o. The patient is going to be on Aricept. He is on warfarin for his atrial fibrillation. We will repeat the patient's INR tomorrow. The patient is on MiraLax for constipation. He is on lisinopril for hypertension. He is on a regular diet. Andrey Valdez MD
[2018-10-21 07:25] LABS: HEMOGLOBIN 10.3 g/dL (14.0-18.0); MEAN CELL VOLUME 91.9 fl (80.0-105.0); MEAN CORPUSCULAR HEMOGLOBIN 28.9 pg (25.0-35.0); MEAN CORPUSCULAR HGB CONC 31.5 g/dl (31.0-37.0); MEAN PLATELET VOLUME 8.4 fl (7.0-11.0); RBC 3.56 10^6/uL (3.5-6.1); RED CELL DISTRIBUTION WIDTH 14.9 % (11.5-14.5)
[2018-10-21 07:28] LABS: INR 1.9; PROTHROMBIN TIME 21.5 SECONDS (9.4-12.5)
[2018-10-21 07:34] LABS: ALB/GLOB RATIO 0.9 (1.1-1.8); ALBUMIN 2.9 g/dL (3.0-4.8); ALT/SGPT 20 U/L (7-56); AST/SGOT 29 U/L (17-59); BLOOD UREA NITROGEN 21 mg/dL (7-21); CALCIUM 8.2 mg/dL (8.4-10.5); GFR NON-AFRICAN AMERICAN > 60
--- NOTE | 2018-10-21 10:16 | PN ---
DATE: 10/21/2018 SUBJECTIVE: The patient has no complaints of any chest pain. No shortness of breath. No headaches or dizziness. PHYSICAL EXAMINATION: VITAL SIGNS: Temperature is 97.7, pulse is 67, blood pressure is 104/63 and respirations 18. GENERAL: The patient is lying in bed, flat, comfortable. HEENT: No oral lesion. Anicteric sclerae. Moist mucosa. NECK: No JVD, adenopathy, or thyromegaly. CARDIOVASCULAR: S1 and S2, regular. No murmurs, rubs, or gallops. LUNGS: Clear to auscultation bilaterally. No wheeze, rales, or rhonchi. ABDOMEN: Bowel sounds are positive, soft, nontender and nondistended. EXTREMITIES: No cyanosis, clubbing or edema. LABORATORY DATA: White count of 5.0 and hemoglobin 10.3. Creatinine is 0.9. ASSESSMENT: 1. Urinary tract infection, secondary to Enterococcus. 2. Failure to thrive, improving. 3. Gait dysfunction, improving. 4. Chronic anemia. 5. Cerebrovascular accident with left-sided residual weakness stable. 6. Atrial fibrillation on Coumadin. 7. Hypertension. 8. Chronic obstructive pulmonary disease. 9. Dyslipidemia. PLAN: The patient has an INR of 1.9. I will increase the patient's Coumadin. He is ampicillin. He will be continued on Aricept for his dementia. The patient is on Coumadin 2 mg, I will increase that to 3 mg. The patient is doing well with physical therapy. He is to be discharged tomorrow. He is on MiraLax for constipation. He is on Lisinopril for hypertension. Andrey Valdez MD
[2018-10-21 11:20] VITALS: O2SAT 96
--- NOTE | 2018-10-21 20:29 | PN ---
DATE: 10/21/2018 SUBJECTIVE: The patient is in bed in no acute distress. PHYSICAL EXAMINATION VITAL SIGNS: On exam temperature is 97, blood pressure is 120/70 and respiratory rate of 16. HEENT: Unremarkable. NECK: Supple. LUNGS: Have decreased breath sounds. HEART: Normal S1 and S2. ABDOMEN: Soft. LABORATORY EXAMINATION: Reveals a white count of 5 and hemoglobin of 10. BUN of 21 and creatinine of 0.9. ASSESSMENT AND PLAN: This is an 88-year male with hypertension, diabetes, hyperlipidemia, admitted with sepsis, Enterococcus bacteremia secondary to Enterococcus urinary tract infection and ampicillin day #11, may complete 14 days, may switch to p.o. ampicillin ask Dr. Cates. Has to complete the 14 days. Ranulfo Blanchard MD
[2018-10-22 11:51] VITALS: BP 116/50; PULSE 64; RESP 16; TEMP 97.6
--- NOTE | 2018-10-22 20:50 | PN ---
DATE: 10/22/2018 SUBJECTIVE: The patient is in bed, in no acute distress, nontoxic. PHYSICAL EXAMINATION: VITAL SIGNS: Temperature is 97, blood pressure 116/50, respiratory rate of 18. HEENT: Unremarkable. NECK: Supple. LUNGS: Have decreased breath sounds. HEART: Normal S1 and S2. ABDOMEN: Soft. LABORATORY DATA: Reveals the patient's white count of 5. Chemistries are noted. ASSESSMENT AND PLAN: An 88-year-old male who is seen earlier this morning with hypertension, diabetes, hyperlipidemia, sepsis, Enterococcus bacteremia secondary to Enterococcus urinary tract infection, 14 days currently now on p.o. ampicillin. The patient is for discharged today. Ranulfo Balnchard MD
--- NOTE | 2018-10-23 02:25 | DS ---
HISTORY OF PRESENT ILLNESS: The patient is an 88-year-old male who was admitted to the hospital because of failure to thrive. He was found to have UTI secondary to Enterococcus. HOSPITAL COURSE: The patient was started on ampicillin IV and then switched over to p.o. The patient has received 11 days of antibiotics. He is going to be discharged home today with p.o. ampicillin and followup as an outpatient. The patient has no complaints of any chest pain. No shortness of breath. No headaches or dizziness. He has been doing fairly well with physical therapy. PHYSICAL EXAMINATION: VITAL SIGNS: Temperature is 97.6, pulse of 64, blood pressure is 116/50, respirations 16 and O2 saturation 96%. GENERAL: The patient is lying in bed, flat, comfortable. HEENT: No oral lesion. Anicteric sclerae. Moist mucosa. NECK: No JVD, adenopathy, or thyromegaly. CARDIOVASCULAR: S1 and S2, regular. No murmurs, rubs, or gallops. LUNGS: Clear to auscultation bilaterally. No wheeze, rales, or rhonchi. ABDOMEN: Bowel sounds are positive, soft, nontender and nondistended. EXTREMITIES: No cyanosis, clubbing or edema. ASSESSMENT: 1. Urinary tract infection secondary to Enterococcus. 2. Failure to thrive, resolved. 3. Gait dysfunction, improved. 4. Chronic anemia. 5. Cerebrovascular accident with left-sided residual weakness, stable. 6. Atrial fibrillation, on Coumadin. 7. Hypertension. 8. Chronic obstructive pulmonary disease. 9. Dyslipidemia. PLAN: The patient is currently on Coumadin for his atrial fibrillation. He is on MiraLax for constipation. He is on lisinopril for hypertension. He is on Aricept for his dementia. His condition is stable. Activities increase as tolerated. Follow up with primary care doctor in 1 to 2 weeks. Andrey Valdez MD
== END 2018-10-22 13:38 | disposition home or self-care (01) | DRG 872 ==
LOC: TRCU 17:05
PROVIDERS: ADMIT Internal Medicine Nephrology; ATTEND Internal Medicine Nephrology
PROC: F07Z9FZ Gait Training/Functional Ambulation Treatment using Assistive, Adaptive, Supportive or Protective Equipment (ICD-10-PCS; principal; 2018-10-15)
PROC: F07M6ZZ Therapeutic Exercise Treatment of Musculoskeletal System - Whole Body (ICD-10-PCS; 2018-10-15)
PROC: F08Z2ZZ Grooming/Personal Hygiene Treatment (ICD-10-PCS; 2018-10-15)
PROC: F08Z1ZZ Dressing Techniques Treatment (ICD-10-PCS; 2018-10-15)
PROC: F08Z0ZZ Bathing/Showering Techniques Treatment (ICD-10-PCS; 2018-10-15)
DX: A41.81 Sepsis due to Enterococcus (principal); N39.0 Urinary tract infection, site not specified; I69.354 Hemiplegia and hemiparesis following cerebral infarction affecting left non-dominant side; R62.7 Adult failure to thrive; D64.9 Anemia, unspecified; E03.9 Hypothyroidism, unspecified; E11.9 Type 2 diabetes mellitus without complications; E78.5 Hyperlipidemia, unspecified; F03.90 Unspecified dementia, unspecified severity, without behavioral disturbance, psychotic disturbance, mood disturbance, and anxiety; I11.0 Hypertensive heart disease with heart failure; I50.9 Heart failure, unspecified; I48.91 Unspecified atrial fibrillation; J44.9 Chronic obstructive pulmonary disease, unspecified; Z79.01 Long term (current) use of anticoagulants; Z86.718 Personal history of other venous thrombosis and embolism; Z87.891 Personal history of nicotine dependence; Z90.49 Acquired absence of other specified parts of digestive tract